=== PATIENT | female | born 1975 | race Caucasian/White ===

== ENCOUNTER 2021-08-30 07:45 | Emergency (ER) | payer OTHER, SELFPAY ==
[2021-08-30 07:51] VITALS: BP 138/84; PULSE 101; RESP 20; TEMP 37.2; O2SAT 95; BMI 38.4
--- NOTE | 2021-08-30 08:27 | ED_ITS ---
HPI - URI/Sore Throat General Chief Complaint: Upper Respiratory Symptoms Stated Complaint: deiff breathing Time Seen by Provider: 08/30/21 08:14 Source: patient Mode of arrival: ambulatory Limitations: no limitations History of Present Illness HPI Narrative: 46-year-old female presents for dry cough, low-grade fevers, body aches, and headaches for the last week. She has had a dry cough which is now getting worse. She feels mildly short of breath. Last night she woke up twice coughing. She has a history of bronchitis and is a former smoker. 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 Patient endorses only a slight headache now. States she did use elderberry syrup, which only helped for 3 hours. MD elicited complaint: cough Onset (ago): week(s) (1) Consistency: intermittent Severity: moderate Able to tolerate fluids by mouth: Yes Context: sick contacts Associated symptoms: chills, myalgias, headache and cough Related Data Previous Rx's Medication Instructions Recorded azithromycin 500 mg tablet 500 mg PO DAILY 5 Days #5 tab 02/27/21 prednisone 20 mg tablet 20 mg PO .COMPLEX #18 tab 02/27/21 albuterol sulfate 90 mcg/actuation 2 puff INHALATION Q6H PRN #8.5 g 08/30/21 aerosol inhaler azithromycin 250 mg tablet See Rx Instructions .ROUTE 08/30/21 .COMPLEX 5 Days #6 tab benzonatate 200 mg capsule 200 mg PO TID 5 Days #15 cap 08/30/21 prednisone 20 mg tablet 40 mg PO DAILY 5 Days #10 tab 08/30/21 Allergies Allergy/AdvReac Type Severity Reaction Status Date / Time latex [LATEX] Allergy Unknown HIVES Unverified 08/30/21 07:51 Review of Systems Constitutional: Constitutional: Reports body ache(s), Reports chills, Reports fatigue, Reports fever(s), Reports headache(s), Reports malaise and Denies weakness Eyes: Eyes: Denies blurry vision and Denies diplopia ENT: Denies vertigo, Denies dizziness, Denies otalgia, Reports headache(s), Denies mouth pain, Denies post nasal drip, Denies sinus pain, Denies sinus pressure, Denies sore throat and Denies throat swelling Cardiovascular: Cardiovascular: Denies chest pain, Denies syncope, Denies leg edema, Denies lightheadedness, Denies Loss of Consciousness, Denies palpitations and Denies dyspnea Respiratory: Respiratory: Denies chest congestion, Reports cough, Denies pain with cough and Denies dyspnea Gastrointestinal: Gastrointestinal: Denies abdominal pain, Denies hematochezia, Denies constipation, Denies diarrhea and Denies vomiting Musculoskeletal: Musculoskeletal: Reports myalgias Neurologic: Denies confusion, Denies vertigo, Denies dizziness, Denies syncope, Reports headache(s) and Denies weakness Psychiatric: Psychiatric: Denies anxiety, Denies confusion and Denies depression Endocrine: Endocrine: Reports fatigue and Denies palpitations Allergic/Immunologic: Allergic/Immunologic: Denies throat swelling PMFSH Social History Social History Advance Directives: No Advance Directives Information Provided: Yes Patient : No Physical Exam Vital Signs: Vital Signs: Last Vital Signs Temp 99.0 F 08/30/21 07:51 Pulse 101 H 08/30/21 07:51 Resp 20 08/30/21 07:51 BP 138/84 08/30/21 07:51 Pulse Ox 95 08/30/21 07:51 BMI result Body Mass Index 38.4 Const: General: alert and ill appearing acutely; No confusion Nutritional Appearance: well nourished Orientation/consciousness: patient oriented x3 and No confusion Limitations: no limitations HENMT: Head: Yes normal to inspection, Yes normocephalic and Yes atraumatic Ears: hearing grossly normal bilaterally, external ears normal, TM's normal bilaterally and EAC's normal General nose exam: Normal external nose present Face and sinus: Yes normal facial exam and Yes sinuses nontender Mouth: Normal oral and palatal mucosa present Throat: Yes posterior oropharynx normal Eyes: Conjunctivae: conjunctivae normal Pupils: Equal, round and reactive pupils present EOM: EOMs intact bilaterally Neck: Neck: Yes full ROM, Yes no lymphadenopathy and Yes supple Resp: Effort & Inspection: normal respiratory effort and able to speak in complete sentences Auscultation: clear to auscultation bilaterally, no crackles, no rales, no rhonchi and no wheezes Cardio: Rate: regular rate Rhythm: regular rhythm Heart sounds: S1 normal heart sound present and S2 normal heart sound present GI: Inspection: Yes normal to inspection Palpation (GI): Soft to palpation, nontender, no guarding and not rigid Percussion: Yes normal to percussion Auscultation: normal bowel sounds Skin: General skin exam: no rashes or lesions noted Neuro: General: patient oriented x3 and No confusion Cranial nerves: Yes Equal, round and reactive pupils present Extrem: General: Yes normal to inspection and Yes full ROM Psych: Appearance: grossly normal Affect: normal affect Attitude: cooperative Thought process: Normal thought process present Course Course Course Narrative: 46-year-old female presents for 1 week of dry cough, body aches, mild headache, and low-grade fevers at home. COVID, flu, RSV test was negative today. Patient has a history of bronchitis. Lungs clear and only very mildly diminished. Plan is for short course of prednisone, albuterol inhaler, azithromycin, Tessalon Perles. Return if chest pain or shortness of breath. Follow-up with PCP. MDM - URI/Sore Throat Lab Data Labs: Lab Results 08/30/21 Range/Units 07:57 Influenza Type A (PCR) NEGATIVE (Negative) Influenza Type B (PCR) NEGATIVE (Negative) RSV RNA Qual (PCR) NEGATIVE (Negative) SARS-CoV-2 RNA (RT-PCR) NEGATIVE (Negative) Discharge Plan Discharge Clinical Impression: Bronchitis Patient Disposition: Home, Self-Care Instructions: Acute Bronchitis (ED), Bronchospasm (ED) Additional Instructions: Please take your prednisone in the morning. Please use your albuterol inhaler, 2 puffs every 4 hours while your awake for the next 3 days. Please start your is of her mycin antibiotic today. Please take the benzonatate for 2 days, it may help with her cough. If it does not help, you may discontinue benzonatate. Please return to the emergency room for chest pain, shortness of breath, worsening fevers, or any other new or concerning symptoms. Prescriptions: New azithromycin 250 mg tablet See Rx Instructions .ROUTE .COMPLEX 5 Days Qty: 6 RF: 0 prednisone 20 mg tablet 40 mg PO DAILY 5 Days Qty: 10 RF: 0 benzonatate 200 mg capsule 200 mg PO TID 5 Days Qty: 15 RF: 0 albuterol sulfate 90 mcg/actuation HFA aerosol inhaler 2 puff inhalation Q6H PRN (Reason: shortness of breath or wheezing) Qty: 8.5 RF: 0 No Action prednisone 20 mg tablet 20 mg PO .COMPLEX Qty: 18 RF: 0 azithromycin 500 mg tablet 500 mg PO DAILY 5 Days Qty: 5 RF: 0 Interventions: ED Discharge Assessment Last Done: 08/30/21 09:27 Discharge Date/Time: 08/30/21 09:27
[2021-08-30 08:42] LABS: Influenza A PCR NEGATIVE (Negative); Influenza B PCR NEGATIVE (Negative); Resp Syncy Virus RNA Qual PCR NEGATIVE (Negative); SARS COV2 PCR INHOUSE NEGATIVE (Negative)
[2021-08-30] MEDS: Albuterol Sulfate 90 MCG 8 GM INHALER 2 PUFF INHALE (09:20)
== END 2021-08-30 09:27 | disposition home or self-care (01) ==
PROVIDERS: Emergency Provider Emergency Medicine; PCP Internal Medicine
DX: J40 Bronchitis, not specified as acute or chronic (principal); Z20.822 Contact with and (suspected) exposure to COVID-19; R50.9 Fever, unspecified
CPT/HCPCS: 0241U; 36415; 94640; 99283; 99284

== ENCOUNTER 2022-01-15 12:28 | Emergency (ER) | payer OTHER, SELFPAY ==
--- NOTE | ~2022-01-15 | US_ITS ---
EXAMINATION: US ABDOMEN COMPLETE CLINICAL INFORMATION: Right upper quadrant pain. COMPARISON: None TECHNIQUE: Real-time imaging of the abdominal viscera. FINDINGS: PANCREAS: Normal. ABDOMINAL AORTA: The proximal, mid, and distal segments are normal in caliber. INFERIOR VENA CAVA: Visualized portions are normal. LIVER: The liver is normal in size. The liver contour is normal. There is diffuse increased liver parenchymal echogenicity, consistent with hepatic steatosis. No focal hepatic lesion. There is no intrahepatic biliary duct dilatation seen. GALLBLADDER: The gallbladder is physiologically distended and demonstrates some areas of comet-tail artifact significant for adenomyomatosis. No stones, sludge, polyps, wall thickening or pericholecystic fluid is seen. According to the ichthyology teacher, the patient was tender over the gallbladder when palpated. COMMON BILE DUCT: Normal in caliber measuring 0.5 cm in diameter. RIGHT KIDNEY: Normal. No hydronephrosis. No renal calculi or focal parenchymal lesions. The kidney measures 13.1 cm in maximum dimension. LEFT KIDNEY: Normal. No hydronephrosis. No renal calculi or focal parenchymal lesions. The kidney measures 12.7 cm in maximum dimension. SPLEEN: Normal. The spleen measures 10.7 cm in maximum dimension. FREE FLUID: None. US/US abdomen complete IMPRESSION: 1. Hepatic steatosis. 2. Adenomyomatosis of the gallbladder without calculi.
--- NOTE | ~2022-01-15 | XR_ITS ---
EXAMINATION: XR CHEST CLINICAL INFORMATION: Right chest wall/right upper quadrant abdominal pain/jaw pain COMPARISON: Chest radiograph 03/14/2011, report only TECHNIQUE: 2 views of the chest were obtained. FINDINGS: No significant abnormality is noted involving the heart, lungs, mediastinum, bony thorax or soft tissues. XR/XR chest 2V IMPRESSION: Unremarkable examination.
[2022-01-15 12:40] VITALS: BP 133/89; PULSE 82; RESP 20; TEMP 36.1; O2SAT 97; BMI 38.4
--- NOTE | 2022-01-15 13:49 | ECG_ITS ---
Test Reason : JAW PAIN Blood Pressure : / mmHG Vent. Rate : 060 BPM Atrial Rate : 060 BPM P-R Int : 164 ms QRS Dur : 086 ms QT Int : 424 ms P-R-T Axes : 016 031 021 degrees QTc Int : 424 ms Normal sinus rhythm Normal ECG When compared with ECG of 04-JUL-2018 20:35, Left posterior fascicular block is no longer Present Criteria for Inferior infarct are no longer Present Nonspecific T wave abnormality, improved in Inferior leads Referred By: Leslye Novak Electronically Signed By:VIJAYA CRENSHAW MD
[2022-01-15 14:12] LABS: MANUAL DIFF FLAG NO
[2022-01-15 14:14] LABS: Basophils Percent Auto 0.3 % (0-2); Eosinophils Absolute Auto 0.1 X10*3/uL (0.0-0.4); Eosinophils Percent Auto 1.8 % (0-4); Hemoglobin 13.4 g/dl (12.0-16.0); Imm Gran Abs Auto 0.01 X10*3/uL (0.00-0.03); Imm Gran Pct Auto 0.2 % (0.0-0.4); Lymphocytes Absolute Auto 1.7 X10*3/uL (1.2-4.9); Lymphocytes Percent Auto 27.4 % (20-40); Mean Corpuscular HGB Conc 32.7 g/dl (31.0-35.0); Mean Corpuscular Hemoglobin 28.5 pg (27.0-33.0); Mean Platelet Volume 10.1 fL (9.4-12.3); Monocytes Absolute Auto 0.4 X10*3/uL (0.1-1.2); Monocytes Percent Auto 6.1 % (2-11); Neutrophils Absolute Auto 3.9 x10*3/uL (2.0-8.3); Neutrophils Percent Auto 64.2 % (45-73); Platelet Count 217 X10*3/uL (160-400); Red Blood Count 4.71 X10*6/uL (4.20-5.50); Red Cell Distribution Width 12.9 % (11.0-16.0); White Blood Count 6.1 X10*3/uL (4.8-10.8)
--- NOTE | 2022-01-15 14:15 | ED_ITS ---
HPI - General Adult General Chief complaint: Back Pain/Injury Stated complaint: back pain/pain under jaw Time Seen by Provider: 01/15/22 13:48 Source: patient Mode of arrival: ambulatory Limitations: no limitations History of Present Illness HPI narrative: 46-year-old female who denies any significant past medical history presenting to the ED with complaints of mid back pain on the right side that is now radiating to her right upper quadrant/right anterior chest wall/rib cage area for the past 2-3 days worse today. She also reports right-sided jaw pain. She reports that it is worse when she bends over. She denies ever having this pain in the past. She reports that she was seen by urgent care and diagnosed with back strain and given muscle relaxers without any symptomatic relief. She denies any fevers, chills, dizziness, headaches, neck pain/stiffness, trouble swallowing or breathing, changes in vision, nausea/vomiting, paresthesias, palpitations, dyspnea on exertion, orthopnea, dysuria, hematuria, urinary bowel incontinence or retention, abnormal vaginal discharge, urinary frequency/urgency, recent falls or trauma, history of IV drug use, history of cancer, recent travel or sick contacts or any other symptoms complaints or concerns at this time. Related Data Previous Rx's Medication Instructions Recorded cyclobenzaprine 10 mg tablet 10 mg PO BEDTIME #14 tab 01/02/22 meloxicam 15 mg tablet 15 mg PO DAILY #14 tab 01/02/22 acetaminophen 500 mg tablet 1,000 mg PO QID PRN #14 tab 01/15/22 (Tylenol Extra Strength) ibuprofen 800 mg tablet 800 mg PO Q8H PRN #14 tab 01/15/22 oxycodone 5 mg tablet 5 mg PO Q6H PRN #7 tab 01/15/22 Allergies Allergy/AdvReac Type Severity Reaction Status Date / Time latex [LATEX] Allergy Unknown HIVES Verified 01/15/22 12:47 Review of Systems Review of Systems: Constitutional : No trauma, No Weight loss, No Fever, No Chills, ENT/Mouth : No Hearing loss, No Ear Pain, No Nasal Congestion, No Sinus Pain, No Hoarseness, No sore throat, No Rhinorrhea, No Swallowing Difficulty Cardiovascular : No Chest Pain, No SOB Respiratory : No Cough, No Dyspnea Gastrointestinal : + abdominal pain, No Nausea, No Vomiting, No Diarrhea, No abdominal Pain, No Hematochezia, No Melena Genitourinary : No Dysuria, No Urinary Frequency, No Hematuria, No Urinary or Bowel Incontinence/retention Musculoskeletal : + Back pain, + right sided jaw pain, + Right sided neck pain, No joint stiffness, No joint swelling Skin : No Skin Lesions, No rash or signs of infection Neuro : No Weakness, No radiation, No Numbness, No Paresthesias, No headache, no loss of bowel or bladder incontinence, no saddle anesthesia, Focal weakness, No radiation Denies history of IV drug usage. Yes all other systems are reviewed and are negative [facility] Past Medical History Attestation statement: The following information was validated with the patient. Surgical History H/O knee surgery Hx of tonsillectomy Social History Social History Patient Tobacco Use Status: Former Tobacco user Advance Directives: No Advance Directives Information Provided: No Patient : No Physical Exam ED Vital Signs: Vital Signs - 24 hr 01/15/22 12:40 Temperature 97 F Pulse Rate 82 Respiratory Rate 20 Blood Pressure 133/89 Pulse Oximetry 97 BMI result Body Mass Index 38.4 vital signs have been reviewed as normal and appeared to be correct. Blood pressure normal. Heart rate normal. Respiration rate normal. Temperature normal. Oxygen saturation normal. Appearance: Alert. Oriented X3. No acute distress. Head: Normal external exam. Normocephalic. Atraumatic. Eyes: PERRLA. EOMI. Conjunctiva and sclera normal. Eyelids normal. ENT: EAC normal. TM's Normal. Pharynx normal. Uvula midline. Moist mucous membranes. No lesions/ulcerations or masses noted on the tongue. Normal voice. No trismus noted. No drooling noted. No muffled voice noted. Neck: Normal inspection. Neck supple. FROM. No adenopathy. Thyroid Normal. No tracheal deviation noted. No crepitus is noted. No meningeal signs. No neck mass noted. No signs of trauma noted. CVS: Normal heart rate and rhythm. Heart sound normal. Pulses normal throughout. No murmurs/rales/gallops. Respiratory: No respiratory distress. Painless inspiration. Breath sounds normal. No wheezes/rales/rhonchi noted. Chest nontender. No crepitus is noted. No signs of trauma noted. No accessory muscle usage noted or decreased air movement noted. No signs of trauma. Abdomen: Soft and tenderness palpation to the right upper quadrant with guard ing. Bowel sounds normal in all 4 quadrants. No distention noted. No organomegaly noted. No visible injury noted. Negative Villavicencio sign. Negative psoas sign. Negative obturator's sign. Back: No CVA tenderness. Full range of motion noted. Patient with tenderness palpation to the right upper para lumbar musculature. No signs of trauma. Patient neuro intact bilaterally and distally on all 4 extremities. Patient's reflexes intact bilaterally and distally on all 4 extremities. No rashes/ lesion/induration/fluctuance or signs of infection noted. Skin: Skin warm and dry. Normal skin color. Normal skin turgor. No rashes/lesions/lacerations noted. Extremities: No lower extremity edema. No calf tenderness is noted. Extremities exhibit normal range of motion and nontender. Neuro: Oriented X 3. No motor deficit. No sensory deficit. Reflexes normal. Normal steady gait. No focal neuro deficits noted. CN's II-XII intact bilaterally? Vascular: + radial pulses/+ 2 distal pedal pulses/+2 dorsalis pedis b/l. Normal cap refill. No cyanosis noted to upper extremity nails and lower extremity toes nails. Course Course Course Narrative: 13:50pm - Pt c likely muscular pain, but could be herniated disc. Neuro exam shows no deficits. Not c/w AAA/epidural abscess/dissection.No high risk Hx (Incont, fever, immunosupp, recent surgery/LP, coag, signif trauma, wt loss, puls mass, hx/o Ca, TB, or IVDU) to warrant MRI. Not c/w Pyelo/UTI/kidney stone/spinal fx. Not cauda equina syndrome. Although due to patient reporting abdominal pain and jaw pain will obtain labs including troponin, EKG, chest x-ray and abdominal ultrasound provide symptomatic treatment and re-evaluate. Reevaluation(s) Reevaluation #1: - labs return and anion gap 11. Troponin 4.9 otherwise all other labs are within normal limits - will repeat a troponin 3 hours after. Awaiting chest x-ray and ultrasound will re-evaluate. Time: 15:18 Reevaluation #2: - repeat troponin 5.6 which is negative delta. - chest x-ray within normal limits. - abdominal ultrasound revealed hepatic cirrhosis and Adenomyomatosis of the gallbladder without calculi. - therefore I consulted with the general surgeon who is on-call and she came and evaluated the patient herself and she reports that the patient is very tender in the right upper quadrant although she does not believe this is acute cholecystitis at this time due to patient does not have an elevated white blood cell count her lipase is normal and she does not have any sludge or stones noted on ultrasound at this time or any fluid. Therefore she reported that patient most likely has biliary colic. Although she instructed me to send the patient home with Motrin and Tylenol and a few oxycodone and for the patient to follow as an outpatient within 1 week for re-evaluation and possible outpa tient surgery for her gallbladder although she reported that she is here over the next 3 days and if patient comes back due to worsening pain then she will take her to the OR for possibly gallbladder removal although at this time and this is not acute cholecystitis we are calling it biliary colic. Patient understands agrees with this plan. Time: 17:22 Medical Decision Making Medical Records Medical records reviewed: Yes I reviewed the patient's medical records. Lab Data Lab results reviewed: Yes I reviewed the patient's lab results. Result diagrams: 01/15/22 14:04 01/15/22 14:04 Labs: Lab Results 01/15/22 01/15/22 01/15/22 Range/Units 14:04 14:04 14:04 WBC 6.1 (4.8-10.8) X10*3/uL RBC 4.71 (4.20-5.50) X10*6/uL Hgb 13.4 (12.0-16.0) g/dl Hct 41.0 (37.0-47.0) % MCV 87.0 (80.0-98.0) fL MCH 28.5 (27.0-33.0) pg MCHC 32.7 (31.0-35.0) g/dl RDW 12.9 (11.0-16.0) % Plt Count 217 (160-400) X10*3/uL MPV 10.1 (9.4-12.3) fL Immature Gran % (Auto) 0.2 (0.0-0.4) % Neut % (Auto) 64.2 (45-73) % Lymph % (Auto) 27.4 (20-40) % [place] % (Auto) 6.1 (2-11) % Eos % (Auto) 1.8 (0-4) % Baso % (Auto) 0.3 (0-2) % Lymph # (Auto) 1.7 (1.2-4.9) X10*3/uL [place] # (Auto) 0.4 (0.1-1.2) X10*3/uL Eos # (Auto) 0.1 (0.0-0.4) X10*3/uL Baso # (Auto) 0.0 (0.0-0.2) X10*3/uL Abs Immat Gran (auto) 0.01 (0.00-0.03) X10*3/uL Absolute Neuts (auto) 3.9 (2.0-8.3) x10*3/uL Absolute Nucleated RBC 0.000 (0.0-0.012) X10*3/uL Nucleated RBC % (auto) 0.0 (0.0-0.2) /100WBC PT 11.2 (9.9-13.0) SEC INR 1.0 (0.9-1.1) Sodium 138 (135-145) mmol/L Potassium 4.2 (3.3-5.1) mmol/L Chloride 103 (96-108) mmol/L Carbon Dioxide 28 (22-29) mmol/L Anion Gap 11 L (12-20) BUN 15 (9-16) mg/dL Creatinine 0.91 (0.5-1.4) mg/dL Estim Creat Clear Calc 105.9 Estimated GFR > 60 Random Glucose 85 (60-115) mg/dL Calcium 9.6 (8.4-10.2) mg/dL Magnesium 1.9 (1.6-2.6) mg/dL Total Bilirubin 0.8 (0.0-1.0) mg/dL AST 19 (5-31) U/L ALT 25 (0-31) U/L Alkaline Phosphatase 69 (39-117) U/L Troponin I High Sens (<3.5-17.0) ng/L Total Protein 7.3 (6.5-8.0) g/dL Albumin 4.3 (3.5-5.0) g/dL Lipase 74 (8-78) U/L Urine Color Urine Appearance Urine pH (5.0-8.0) Ur Specific [place] (1.005-1.025) Urine Protein (NEG-TRACE) MG/DL Urine Glucose (UA) (NEG) MG/DL Urine Ketones (NEG) MG/DL Urine Blood (NEG) Urine Nitrite (NEG) Ur Leukocyte Esterase (NEG) Urine RBC (0) /HPF Urine WBC (0-4) /HPF Ur Squamous Epith Cells /LPF Urine Bacteria /LPF 01/15/22 01/15/22 01/15/22 Range/Units 14:04 16:41 16:41 WBC (4.8-10.8) X10*3/uL RBC (4.20-5.50) X10*6/uL Hgb (12.0-16.0) g/dl Hct (37.0-47.0) % MCV (80.0-98.0) fL MCH (27.0-33.0) pg MCHC (31.0-35.0) g/dl RDW (11.0-16.0) % Plt Count (160-400) X10*3/uL MPV (9.4-12.3) fL Immature Gran % (Auto) (0.0-0.4) % Neut % (Auto) (45-73) % Lymph % (Auto) (20-40) % [place] % (Auto) (2-11) % Eos % (Auto) (0-4) % Baso % (Auto) (0-2) % Lymph # (Auto) (1.2-4.9) X10*3/uL [place] # (Auto) (0.1-1.2) X10*3/uL Eos # (Auto) (0.0-0.4) X10*3/uL Baso # (Auto) (0.0-0.2) X10*3/uL Abs Immat Gran (auto) (0.00-0.03) X10*3/uL Absolute Neuts (auto) (2.0-8.3) x10*3/uL Absolute Nucleated RBC (0.0-0.012) X10*3/uL Nucleated RBC % (auto) (0.0-0.2) /100WBC PT (9.9-13.0) SEC INR (0.9-1.1) Sodium (135-145) mmol/L Potassium (3.3-5.1) mmol/L Chloride (96-108) mmol/L Carbon Dioxide (22-29) mmol/L Anion Gap (12-20) BUN (9-16) mg/dL Creatinine (0.5-1.4) mg/dL Estim Creat Clear Calc Estimated GFR Random Glucose (60-115) mg/dL Calcium (8.4-10.2) mg/dL Magnesium (1.6-2.6) mg/dL Total Bilirubin (0.0-1.0) mg/dL AST (5-31) U/L ALT (0-31) U/L Alkaline Phosphatase (39-117) U/L Troponin I High Sens 4.9 5.6 (<3.5-17.0) ng/L Total Protein (6.5-8.0) g/dL Albumin (3.5-5.0) g/dL Lipase (8-78) U/L Urine Color YELLOW Urine Appearance CLEAR Urine pH 6.0 (5.0-8.0) Ur Specific [place] 1.015 (1.005-1.025) Urine Protein NEG (NEG-TRACE) MG/DL Urine Glucose (UA) NEG (NEG) MG/DL Urine Ketones NEG (NEG) MG/DL Urine Blood TRACE (NEG) Urine Nitrite NEG (NEG) Ur Leukocyte Esterase NEG (NEG) Urine RBC 0-2 (0) /HPF Urine WBC 0 (0-4) /HPF Ur Squamous Epith Cells 1+ /LPF Urine Bacteria 1+ /LPF Imaging Data Chest x-ray: Attestation: I personally reviewed and interpreted this imaging study as follows: Radiologist's impression: FINDINGS: No significant abnormality is noted involving the heart, lungs, mediastinum, bony thorax or soft tissues. XR/XR chest 2V IMPRESSION: Unremarkable examination. Abdominal ultrasound: Attestation: I personally reviewed and interpreted this imaging study as follows: Radiologist's impression: FINDINGS: PANCREAS: Normal. ABDOMINAL AORTA: The proximal, mid, and distal segments are normal in caliber. INFERIOR VENA CAVA: Visualized portions are normal. LIVER: The liver is normal in size. The liver contour is normal. There is diffuse increased liver parenchymal echogenicity, consistent with hepatic steatosis.? No focal hepatic lesion. There is no intrahepatic biliary duct dilatation seen. GALLBLADDER: The gallbladder is physiologically distended and demonstrates some areas of comet-tail artifact significant for adenomyomatosis. No stones, sludge, polyps, wall thickening or pericholecystic fluid is seen. According to the lens and frames prescription clerk, the patient was tender over the gallbladder when palpated. COMMON BILE DUCT: Normal in caliber measuring 0.5 cm in diameter. RIGHT KIDNEY: Normal. No hydronephrosis. No renal calculi or focal parenchymal lesions. The kidney measures 13.1 cm in maximum dimension. LEFT KIDNEY: Normal. No hydronephrosis. No renal calculi or focal parenchymal lesions. The kidney measures 12.7 cm in maximum dimension. SPLEEN: Normal. The spleen measures 10.7 cm in maximum dimension. FREE FLUID: None. US/US abdomen complete IMPRESSION: 1. Hepatic steatosis. ? 2. Adenomyomatosis of the gallbladder without calculi. ECG Data Attestation: I personally reviewed and interpreted this ECG as follows: Interpretation: Normal sinus rhythm with ventricular rate of 60 with a normal [place] interval normal QRS duration normal QT/QTC interval. No acute ischemic change are noted. Similar compared to prior EKG 07/04/2018. Critical Care Time Critical Care Time Critical Care Time: Yes Total Critical Care Time: 60 Attestation: I personally attest to this time spent taking care of the patient Discharge Plan Discharge Clinical Impression: Biliary colic Patient Disposition: Home, Self-Care Instructions: Biliary Colic (ED) Prescriptions: New ibuprofen 800 mg tablet 800 mg PO Q8H PRN (Reason: pain) Qty: 14 0RF acetaminophen [Tylenol Extra Strength] 500 mg tablet 1,000 mg PO QID PRN (Reason: fever or pain) Qty: 14 0RF oxycodone 5 mg tablet 5 mg PO Q6H PRN (Reason: pain) Qty: 7 0RF No Action meloxicam 15 mg tablet 15 mg PO DAILY Qty: 14 0RF cyclobenzaprine 10 mg tablet 10 mg PO BEDTIME Qty: 14 0RF Referrals: Espinas,Radha C, MD [Primary Care Provider] - Valentin Palafox MD [Physician] - (Call tomorrow to make a follow-up appointment within 1 week) Stand Alone Forms: Work/School Release Print Language: Turkmen
[2022-01-15 14:31] LABS: Prothrombin Time 11.2 SEC (9.9-13.0)
[2022-01-15 14:33] LABS: Alanine Aminotransferase 25 U/L (0-31); Albumin Level 4.3 g/dL (3.5-5.0); Alkaline Phosphatase 69 U/L (39-117); Anion Gap 11 (12-20); Aspartate Amino Transferase 19 U/L (5-31); Bilirubin Total 0.8 mg/dL (0.0-1.0); Blood Urea Nitrogen 15 mg/dL (9-16); Calcium 9.6 mg/dL (8.4-10.2); Carbon Dioxide 28 mmol/L (22-29); Chloride 103 mmol/L (96-108); Creatinine Clr Calc Pharmacy 105.9; Estimated Glomerular Filt Rate > 60; Glucose Random 85 mg/dL (60-115); Lipase 74 U/L (8-78); Magnesium 1.9 mg/dL (1.6-2.6); Potassium 4.2 mmol/L (3.3-5.1); Sodium 138 mmol/L (135-145); Total Protein 7.3 g/dL (6.5-8.0); Troponin-I High Sensitivity 4.9 ng/L (<3.5-17.0)
[2022-01-15] MEDS: Cyclobenzaprine HCl 10 MG TABLET PO (15:22)
[2022-01-15] MEDS: NaPROXEN 500 MG TABLET PO (15:23)
[2022-01-15 16:53] LABS: Appearance Urine CLEAR; Color Urine YELLOW; Glucose Urine UA NEG (NEG); Leukocyte Esterase Urine NEG (NEG); Nitrite Urine NEG (NEG); Specific Gravity - Urine 1.015 (1.005-1.025); UACC Culture Trigger NO; Urine Blood TRACE (NEG); Urine Ketones NEG (NEG); Urine Protein NEG (NEG-TRACE)
[2022-01-15 17:01] LABS: Bacteria Urine 1+ /LPF; RBC Urine 0-2 /HPF (0); Squamous Epithelial Cell Urine 1+ /LPF; WBC Urine 0 /HPF (0-4)
[2022-01-15 17:10] LABS: Troponin-I High Sensitivity 5.6 ng/L (<3.5-17.0)
--- NOTE | 2022-01-15 17:20 | PM.CNGS ---
History of Present Illness Consult details Consult date: 01/15/22 Requesting physician: Leslye Novak Narrative: The pt is a 46 year old female who has been having right back/flank pain for the last few weeks but worsened last 48 hrs after eating pork belly and some other things. went to Urgent care who thought maybe more muskuloskeletal and gave her muscle relaxant which did not help. she comes in now to the ER. w.u here normal labs but tender over the GB. U/s done shows chavez sign, no stones. she was nauseated at times. denies ever having pain like this before not sure of family hx of gallbladder disease denies heartburn reflux no bowel issues or urinary issues PMFSH Surgical History Surgical History H/O knee surgery Hx of tonsillectomy Social History Social History Patient Tobacco Use Status: Former Tobacco user Advance Directives: No Advance Directives Information Provided: No Patient : No Meds Allergies Allergy/AdvReac Type Severity Reaction Status Date / Time latex [LATEX] Allergy Unknown HIVES Verified 01/15/22 12:47 Physical Exam Vital Signs: Vital Signs: Last Vital Signs Temp 97 F 01/15/22 12:40 Pulse 82 01/15/22 12:40 Resp 20 01/15/22 12:40 BP 133/89 01/15/22 12:40 Pulse Ox 97 01/15/22 12:40 BMI result Body Mass Index 38.4 Const: General: cooperative, healthy appearing, comfortable and no acute distress Orientation/consciousness: oriented to person, oriented to place and oriented to time Eyes: General: appearance normal, both eyes and all related structures Neck: Neck: Yes normal visual inspection Resp: Effort & Inspection: normal respiratory effort and able to speak in complete sentences Auscultation: clear to auscultation bilaterally Cardio: Rate: regular rate Rhythm: regular rhythm GI: Other: soft nondistended, tender ruq area no guarding or rebound or peritoneal signs : General: No CVA tenderness Back/Spine/Pelvis: Back: No CVA tenderness Skin: General skin exam: no rashes or lesions noted and no jaundice Neuro: General: oriented to person, oriented to place and oriented to time Extrem: General: Yes normal to inspection Psych: Appearance: grossly normal and well kempt Mental Status: mental status grossly normal Affect: normal affect Attitude: cooperative Thought content: Normal thought content present Results Labs Result diagrams: 01/15/22 14:04 01/15/22 14:04 Labs: Abnormal lab results 01/15/22 Range/Units 14:04 Anion Gap 11 L (12-20) Short CBC 01/15/22 Range/Units 14:04 WBC 6.1 (4.8-10.8) X10*3/uL Hgb 13.4 (12.0-16.0) g/dl Hct 41.0 (37.0-47.0) % Plt Count 217 (160-400) X10*3/uL BMP 01/15/22 14:04 Sodium 138 Potassium 4.2 Chloride 103 Carbon Dioxide 28 BUN 15 Creatinine 0.91 Calcium 9.6 Liver Function 01/15/22 Range/Units 14:04 Total Bilirubin 0.8 (0.0-1.0) mg/dL AST 19 (5-31) U/L ALT 25 (0-31) U/L Alkaline Phosphatase 69 (39-117) U/L Albumin 4.3 (3.5-5.0) g/dL Urine 01/15/22 Range/Units 16:41 Urine Color YELLOW Urine Appearance CLEAR Urine pH 6.0 (5.0-8.0) Ur Specific [place] 1.015 (1.005-1.025) Urine Protein NEG (NEG-TRACE) MG/DL Urine Glucose (UA) NEG (NEG) MG/DL All other labs normal. Imaging Abdominal ultrasound report/results: report reviewed Assessment and Plan (1) Biliary colic symptom: Status: Acute Plan 46 year old female with probable biliary colic, no stones but hx and exam and u/s consistent with this. plan - stay on low fat diet, antiinflammatory meds and fu as outpt in the surgical office and consider planning for elective lap lianna. if sx worsen pt to return to ER for more urgent surgery. She agrees and understands this plan Procedures Date of Service Date of Service: 01/15/22
== END 2022-01-15 18:05 | disposition home or self-care (01) ==
PROVIDERS: Physician Assistant Medical; Emergency Provider Student in an Organized Health Care Education/Training Program; PCP Internal Medicine
DX: K80.50 Calculus of bile duct without cholangitis or cholecystitis without obstruction (principal); M54.50 Low back pain, unspecified; R10.84 Generalized abdominal pain; Z79.899 Other long term (current) drug therapy; Z87.891 Personal history of nicotine dependence
CPT/HCPCS: 36415; 71046; 76700; 80053; 81001; 83690; 83735; 84484; 85025; 85610; 93005; 99284; 99291

== ENCOUNTER → 2022-01-29 09:47 | Outpatient (BNVA) | payer OTHER, MEDICAID, SELFPAY | PROVIDERS: PCP Internal Medicine; Referring Provider Internal Medicine; Visit Provider Surgery | DX: D13.5 Benign neoplasm of extrahepatic bile ducts (principal) ==

== ENCOUNTER 2022-03-16 12:42 | Outpatient (REF) | payer OTHER, MEDICAID, SELFPAY ==
--- NOTE | ~2022-03-16 | CT_ITS ---
EXAMINATION: CT ABDOMEN AND PELVIS WITHOUT CONTRAST CLINICAL INFORMATION: Benign neoplasm of the extrahepatic bile ducts COMPARISON: Previous abdominal ultrasound December 2020 TECHNIQUE: Multidetector volumetric imaging was performed from the superior aspect of the liver through the pubic symphysis. Sagittal and coronal reformatted images were obtained on the technologist's workstation. This CT examination was performed using dose optimization techniques as appropriate, variously including the following: *Automated exposure control *Adjustment of mA and/or kV according to patient size (this includes techniques or standardized protocols for targeted exams where dose is matched to indication/reason for exam; i.e. extremities or head) *Use of iterative reconstruction technique DLP: 1163 mGy-cm FINDINGS: LUNG BASES: The visualized lung bases are unremarkable. LIVER, GALLBLADDER, AND BILIARY TREE: The liver is normal in size and shape. Liver slightly low in attenuation suggestive of mild fatty infiltration.. No focal hepatic lesion or biliary ductal dilatation is present. The gallbladder is unremarkable with no evidence of radiopaque gallstones, gallbladder wall thickening, or obvious pericholecystic inflammatory changes. PANCREAS: Unremarkable. SPLEEN: Unremarkable. ADRENAL GLANDS: Unremarkable. KIDNEYS AND URETERS: The kidneys are normal in size, shape, and attenuation. No hydronephrosis, hydroureter, or calculi seen. No perinephric stranding. BLADDER: Unremarkable. GASTROINTESTINAL TRACT: The small and large bowel are unremarkable. The appendix is unremarkable. ABDOMINAL WALL: There is a small umbilical hernia containing fat. LYMPH NODES: Normal. VASCULAR: Unremarkable. PELVIC VISCERA: Unremarkable. OSSEOUS STRUCTURES: Mild degenerative changes of the spine. CT/CT abdomen pelvis wo con IMPRESSION: Mild fatty infiltration of the liver otherwise unremarkable exam. Fleischner guidelines were followed.
== END 2022-03-16 12:43 | disposition home or self-care (01) ==
LOC: HO.CT 12:42
PROVIDERS: Visit Provider Surgery
DX: D13.5 Benign neoplasm of extrahepatic bile ducts (principal); K80.50 Calculus of bile duct without cholangitis or cholecystitis without obstruction
CPT/HCPCS: 74176

== ENCOUNTER 2022-03-19 10:07 | Outpatient (REF) | payer OTHER, MEDICAID, SELFPAY ==
[2022-03-19 11:25] LABS: Appearance Urine CLEAR; Color Urine YELLOW; Glucose Urine UA NEG (NEG); Leukocyte Esterase Urine NEG (NEG); Nitrite Urine NEG (NEG); PH 5.5 (5.0-8.0); Urine Blood TRACE (NEG); Urine Ketones NEG (NEG); Urine Protein NEG (NEG-TRACE)
[2022-03-19 11:41] LABS: Amorphous Sediment Urine 2+ /LPF; Bacteria Urine TRACE /LPF; RBC Urine 0-2 /HPF (0); Squamous Epithelial Cell Urine 2+ /LPF; WBC Urine 0 /HPF (0-4)
== END 2022-03-19 10:08 | disposition home or self-care (01) ==
LOC: HO.LAB 10:07
PROVIDERS: PCP Internal Medicine; Visit Provider Surgery
DX: Z87.898 Personal history of other specified conditions (principal)
CPT/HCPCS: 81001

== ENCOUNTER 2023-02-11 14:44 | Outpatient (REF) | payer OTHER, SELFPAY ==
--- NOTE | ~2023-02-11 | US_ITS ---
EXAMINATION: US THYROID CLINICAL INFORMATION: Cervicalgia. COMPARISON: Ultrasound soft tissue neck 09/18/2016. TECHNIQUE: Linear transducer grayscale and color Doppler examination with attention to the region of the thyroid. FINDINGS: SIZE: Measurements of the thyroid lobes and nodules are given in sagittal, anteroposterior and transverse dimensions respectively. Right Thyroid Lobe: 4.9 x 1.0 x 1.5 cm, volume 3.8 mL. Parenchyma: The gland echotexture is homogeneous. Thyroid vascularity is normal. Left Thyroid Lobe: 4.3 x 1.3 x 1.2 cm, volume 3.5 mL. Parenchyma: The gland echotexture is homogeneous. Thyroid vascularity is normal. Isthmus: 0.2 cm in maximum AP dimension. No focal thyroid nodule is seen. NODES: There are abnormal lymph nodes at the level of C3 on the right measured 1.2 x 0.5 x 0.9 cm with echogenic center and hypoechoic cortex the lymph node is hypervascular. In another Lymph nodes at the level 5B measured 1.0 x 0.8 x 1.1 cm with prominent cortex and hypervascular center. US/US thyroid IMPRESSION: Normal thyroid gland. Abnormal lymph nodes in the right neck at level 5B.
== END 2023-02-11 14:45 | disposition home or self-care (01) ==
LOC: HO.US 14:44
PROVIDERS: PCP Internal Medicine; Visit Provider Internal Medicine
DX: M54.2 Cervicalgia (principal)
CPT/HCPCS: 76536

== ENCOUNTER → 2023-02-24 09:08 | Outpatient (BNVA) | payer OTHER, SELFPAY | PROVIDERS: PCP Internal Medicine; Visit Provider Surgery ==

== ENCOUNTER → 2023-02-25 09:14 | Outpatient (BNVA) | payer OTHER, SELFPAY | PROVIDERS: PCP Internal Medicine; Visit Provider Physician Assistant ==

== ENCOUNTER → 2023-03-12 08:58 | Outpatient (BNVA) | payer OTHER, SELFPAY | PROVIDERS: PCP Internal Medicine; Visit Provider Surgery ==

== ENCOUNTER 2023-03-15 06:11 | Outpatient (REF) | payer OTHER, SELFPAY ==
--- NOTE | ~2023-03-15 | US_ITS ---
EXAMINATION: US SOFT TISSUE NECK CLINICAL INFORMATION: Evaluate for lymphadenopathy within the COMPARISON: None available. TECHNIQUE: Ultrasound of the neck soft tissues is performed with high- frequency de la cruz-scale imaging and color Doppler. FINDINGS: RIGHT NECK SOFT TISSUES: There are numerous bilateral lymph nodes seen in the neck with the largest nodule on the right measured 1.1 x 0.5 x 1.0 cm and the largest nodule on the left measured 0.6 x 0.3 0.6 cm. All nodule consistent with reactive appearing with echogenic fatty center and thin cortex. There are no solid masses or abnormal neck lymphadenopathy seen bilaterally. US/US soft tiss head and/or neck IMPRESSION: Reactive appearing bilateral neck lymphadenopathy.
--- NOTE | ~2023-03-15 | XR_ITS ---
EXAMINATION: XR CHEST CLINICAL INFORMATION: Obesity COMPARISON: Previous chest x-ray December 2021 TECHNIQUE: 2 views of the chest were obtained. FINDINGS: The cardiac silhouette does not appear enlarged. There is prominence of the ascending thoracic aorta. Hilar and mediastinal contours are otherwise unremarkable. The lungs are appear. No pleural effusion or pneumothorax. Bony structures are unremarkable. XR/XR chest 2V IMPRESSION: Prominent ascending thoracic aorta. Follow-up echocardiogram or CT or MR of the chest recommended.
[2023-03-15 06:28] LABS: MANUAL DIFF FLAG NO
[2023-03-15 07:27] LABS: Basophils Percent Auto 0.4 % (0-2); Eosinophils Absolute Auto 0.1 X10*3/uL (0.0-0.4); Hematocrit 43.8 % (37.0-47.0); Imm Gran Abs Auto 0.01 X10*3/uL (0.00-0.03); Imm Gran Pct Auto 0.2 % (0.0-0.4); Lymphocytes Absolute Auto 1.9 X10*3/uL (1.2-4.9); Mean Corpuscular Hemoglobin 28.1 pg (27.0-33.0); Mean Corpuscular Volume 87.8 fL (80.0-98.0); Mean Platelet Volume 10.5 fL (9.4-12.3); Monocytes Absolute Auto 0.3 X10*3/uL (0.1-1.2); Monocytes Percent Auto 7.4 % (2-11); Neutrophils Absolute Auto 2.2 x10*3/uL (2.0-8.3); Platelet Count 247 X10*3/uL (160-400); Red Blood Count 4.99 X10*6/uL (4.20-5.50); Red Cell Distribution Width 13.2 % (11.0-16.0); White Blood Count 4.6 X10*3/uL (4.8-10.8)
[2023-03-15 07:42] LABS: Estimated Average Glucose 114 mg/dL; Hemoglobin A1c % 5.6 %
[2023-03-15 08:20] LABS: Alanine Aminotransferase 22 U/L (0-31); Albumin Level 4.4 g/dL (3.5-5.0); Alkaline Phosphatase 77 U/L (39-117); Anion Gap 14 (12-20); Aspartate Amino Transferase 18 U/L (5-31); Bilirubin Total 0.9 mg/dL (0.0-1.0); Blood Urea Nitrogen 16 mg/dL (9-16); C Reactive Protein 0.44 mg/dL (< or = 0.50); Calcium 9.9 mg/dL (8.4-10.2); Carbon Dioxide 26 mmol/L (22-29); Chloride 107 mmol/L (96-108); Cholesterol 190 mg/dL; Estimated Glomerular Filt Rate > 60; Glucose Random 98 mg/dL (60-115); HDL Cholesterol 35 mg/dL; Iron 91 mcg/dL (30-160); LDL Cholesterol Calculated 123 mg/dl; Percent Iron Saturation 29 % (15-50); Potassium 4.4 mmol/L (3.3-5.1); Sodium 143 mmol/L (135-145); Total Iron Binding Capacity 315 mcg/dL (228-428); Total Protein 7.7 g/dL (6.5-8.0); Triglycerides 161 mg/dL; Unsaturated Iron Binding 224 ug/dL
[2023-03-15 08:33] LABS: Ferritin 124 ng/mL (10-250); TSH reflex Free T4 3.02 uIU/mL (0.32-4.0); Vitamin D 25-OH Total 33.2 ng/mL (>30)
[2023-03-15 08:39] LABS: Folate 13.7 ng/mL (> or = 4.0); Vitamin B12 656 pg/mL (200-900)
[2023-03-15 08:53] LABS: Insulin 13 uU/mL (2-29)
--- NOTE | 2023-03-15 11:59 | ECG_ITS ---
Test Reason : E66.01 Blood Pressure : / mmHG Vent. Rate : 061 BPM Atrial Rate : 061 BPM P-R Int : 172 ms QRS Dur : 086 ms QT Int : 408 ms P-R-T Axes : 040 038 028 degrees QTc Int : 410 ms Normal sinus rhythm Normal ECG When compared with ECG of 15-JAN-2022 13:51, No significant change was found Referred By: Fabricio Rodrigez Electronically Signed By:MILVIA CH
[2023-03-16 13:06] LABS: H Pylori Breath Test Negative (Negative)
[2023-03-17 14:18] LABS: Calcium (PTHI) 9.3 mg/dL (8.6-10.2); PTHI 81 pg/mL (16-77)
[2023-03-18 06:17] LABS: Zinc 115 mcg/dL (60-130)
[2023-03-19 18:48] LABS: Vitamin A 54 mcg/dL (38-98)
[2023-03-21 12:02] LABS: Vitamin B1 9 nmol/L (8-30)
== END 2023-03-15 06:12 | disposition home or self-care (01) ==
LOC: HO.US 06:11
PROVIDERS: Absent Provider Surgery; PCP Internal Medicine; Visit Provider Surgery
DX: Z11.2 Encounter for screening for other bacterial diseases (principal); E66.01 Morbid (severe) obesity due to excess calories; K21.9 Gastro-esophageal reflux disease without esophagitis; R59.0 Localized enlarged lymph nodes
CPT/HCPCS: 36415; 71046; 76536; 80053; 80061; 82306; 82607; 82728; 82746; 83013; 83036; 83525; 83540; 83970; 84425; 84443; 84590; 84630; 85025; 86140; 93005

== ENCOUNTER 2023-04-07 08:45 | Outpatient (AMB) | payer OTHER, SELFPAY ==
--- NOTE | 2023-04-07 08:34 | MHC.AMNUTRGE ---
Intake Intake Visit Reasons: VIDEO Initial Nutrition SWL Allergies latex [LATEX] Allergy (Unknown, Verified 03/12/23 13:16) HIVES HPI Nutrition Presentation Reason for consult elevated BMI Diet Assmnt Details Isn't consistent yet with her nutrition plan. She reports her biggest issue is evening snacking. Feels very restricted so isn't following her plan at all. 6-8am Isopure infusions 1/2 scoops in 8oz 10g protein, 45 calories) 9-11am another Isopure same way 12-2pm Zone perfect bar 3-5pm another bar 6pm dinner 7-9pm another bar SWL online classes: none Dietary counseling reduction Meal frequency regular: lunch (salad, rice and chicken from a resturaunt), dinner (tacos, spaghetti ) and snacks (evening snacking ) and never: breakfast Lifestyle Emotional Eating Reports comfort/relaxation Diagnosis Nutrition problem #1 overweight/obesity As related to (etiology) #1 excess energy intake and physical inactivity As evidenced by (sign/symptom) #1 high BMI Monitoring/Goals Nutrition problem monitoring total energy intake, level of knowledge/skill, total PRO intake, total CHO intake and weight Outcome progress not met Learning/Education Readiness to learn good Stages of change contemplation Educational materials provided Yes Most Recent Diabetes Results: Cholesterol 190 mg/dL 03/15/23 HDL Cholesterol 35 mg/dL 03/15/23 Triglycerides 161 mg/dL 03/15/23 Creatinine 0.85 mg/dL (0.5-1.4) 03/15/23 Blood Urea Nitrogen 16 mg/dL (9-16) 03/15/23 Sodium 143 mmol/L (135-145) 03/15/23 Potassium 4.4 mmol/L (3.3-5.1) 03/15/23 Chloride 107 mmol/L (96-108) 03/15/23 Carbon Dioxide 26 mmol/L (22-29) 03/15/23 Calcium 9.9 mg/dL (8.4-10.2) 03/15/23 AST 18 U/L (5-31) 03/15/23 ALT 22 U/L (0-31) 03/15/23 Total Protein 7.7 g/dL (6.5-8.0) 03/15/23 Albumin 4.4 g/dL (3.5-5.0) 03/15/23 [facility] Medical History (Updated 03/20/23 @ 13:52 by Fabricio Rodrigez MD) Adenomyomatosis of gallbladder Anterior cervical adenopathy Family history of thyroid disorder GERD (gastroesophageal reflux disease) Morbid obesity Morbid obesity Surgical History H/O knee surgery Hx of tonsillectomy Family History (Updated 02/25/23 @ 09:32 by NORA Barton) Sister Substance use disorder Mother Hypertension Thyroid disease Father Diabetes Lung cancer Brother No problems noted. Brother No problems noted. Son Asthma Social History (Updated 02/25/23 @ 09:31 by NORA Barton) Housing: House Alcohol intake: current Alcohol intake frequency: holidays/special occasions only Patient Tobacco Use Status: Former Tobacco user e-Cigarette/Vaping Use: Never Used service: No Current occupational status: employed Cognitive needs: No Hearing needs: No Vision needs: No Assessment & Plan Assessment & Plan (1) Morbid obesity: Code(s): E66.01 - Morbid (severe) obesity due to excess calories Patient Instructions: pt will discuss the need for meal plan changes with her surgeon. Recommend a full serving of protein powder in shakes and changing protein bar to lower sugar version (zone macros). Finish online classes. f/u with me 05/12 at 8:30am Telehealth Telehealth Location of provider rendering services: practice address Location of patient: address on file Patient Identification confirmed using: Name, : Yes Telehealth method: video Patient verbally consented to treatment: Yes Patient verbally consented to billing insurance company: Yes Patient informed of any privacy concerns related to visit: Yes Minutes spent on Phone/Video with Pt.: 30 Coding Level of Care Code Nutr Indiv Intake (31786) Diagnoses Morbid obesity E66.01 Time Spent (min) 30
== END 2023-04-07 08:57 | disposition home or self-care (01) ==
LOC: HO.HBS 08:45
PROVIDERS: PCP Internal Medicine; Visit Provider Dietitian, Registered
DX: E66.01 Morbid (severe) obesity due to excess calories (principal)

== ENCOUNTER → 2023-04-07 08:45 | Outpatient (BNVA) | payer OTHER, SELFPAY | PROVIDERS: PCP Internal Medicine; Visit Provider Dietitian, Registered | DX: E66.01 Morbid (severe) obesity due to excess calories (principal); Z71.3 Dietary counseling and surveillance | CPT/HCPCS: 97802 ==

== ENCOUNTER 2023-04-12 09:49 | Outpatient (AMB) | payer OTHER, SELFPAY ==
--- NOTE | 2023-04-12 09:31 | MHC.OFFVISWM ---
Intake VS Expanded 04/12/23 09:32 Height 5 ft 8 in Weight 255 lb 9.6 oz BMI 38.9 Intake Visit Reasons: VIDEO f/u SWL [employer] [address] [employer] Required: No Allergies latex [LATEX] Allergy (Unknown, Verified 03/12/23 13:16) HIVES Medication List - Last Reconciled 04/12/23 by ECHO Torres clotrimazole-betamethasone 1-0.05 % 1 appl topical BID 10 days multivitamin 1 tab PO DAILY HPI HPI Comments History of Present Illness Details 47 yo female returns to clinic for SWL pre-op counseling. Weight today 255.6 pounds with a BMI of 38.9 Initial weight 03/12/23 263.8 with a BMI of 40.1 Weight loss:8.2 pounds, TBWL 3.1 % She states she is cheating on her diet with mashed potatoes and then a pint of ice cream. She also bought Pure protein bars because they were on sale and didn't tell Dr Mc. She states she can go back to the ZP bars and did like them. Discussed importance of communicating to us if she wants/needs to make any changes. Meal plan: 2 Isopure Infusion protein shakes (HALF scoop EACH in 8oz water) at 6am-8am and 9am-11am, 2 protein bars (Zone Perfect protein bars) at 12pm-2pm and 3pm-5pm, dinner at 6pm (10 forks of protein and 10 forks of salad/vegetables) and HALF protein bar at 8pm-9pm if you feel hungry. Drinkin.5 liters daily Exercise plan: nothing, starting today -- going to [employer]. [facility] Medical History Adenomyomatosis of gallbladder Anterior cervical adenopathy Family history of thyroid disorder GERD (gastroesophageal reflux disease) Morbid obesity Morbid obesity Surgical History H/O knee surgery Hx of tonsillectomy Family History Sister Substance use disorder Mother Hypertension Thyroid disease Father Diabetes Lung cancer Brother No problems noted. Brother No problems noted. Son Asthma Social History Housing: House Alcohol intake: current Alcohol intake frequency: holidays/special occasions only Patient Tobacco Use Status: Former Tobacco user e-Cigarette/Vaping Use: Never Used service: No Current occupational status: employed Cognitive needs: No Hearing needs: No Vision needs: No Review of Systems Const All systems reviewed & are unremarkable except as noted in HPI and below Assessment & Plan Assessment & Plan (1) Obesity (BMI 30-39.9): Code(s): E66.9 - Obesity, unspecified Plan: Discussed importance of communicating if any changes to the plans Encouraged to start exercising and refer to original email for goals and instructions. Encouraged to start 3 days/w this week and increase to 5 days/week next week. Reminded of upcoming appts. Continue current meal plan and change back to ZP bars Telehealth Telehealth Location of provider rendering services: practice address Location of patient: other Patient Identification confirmed using: Name, : Yes Telehealth method: video Patient verbally consented to treatment: Yes Patient verbally consented to billing insurance company: Yes Patient informed of any privacy concerns related to visit: Yes Minutes spent on Phone/Video with Pt.: 12 Coding Level of Care Code Tele Est Pt Level 3 (47383) Diagnoses Obesity (BMI 30-39.9) E66.9 Time Spent (min) 18
[2023-04-12 09:32] VITALS: BMI 38.9
== END 2023-04-12 09:52 | disposition home or self-care (01) ==
LOC: HO.HBS 09:50
PROVIDERS: PCP Internal Medicine; Visit Provider Physician Assistant Surgical
DX: E66.9 Obesity, unspecified (principal); Z68.38 Body mass index [BMI] 38.0-38.9, adult
CPT/HCPCS: 99213

== ENCOUNTER → 2023-04-12 09:49 | Outpatient (BNVA) | payer OTHER, SELFPAY | PROVIDERS: PCP Internal Medicine; Visit Provider Physician Assistant Surgical ==

== ENCOUNTER → 2023-04-15 13:00 | Outpatient (BNVA) | payer OTHER, SELFPAY | PROVIDERS: PCP Internal Medicine; Visit Provider Counselor Mental Health | DX: F43.23 Adjustment disorder with mixed anxiety and depressed mood (principal); E66.01 Morbid (severe) obesity due to excess calories ==

== ENCOUNTER 2023-04-21 11:35 | Outpatient (AMB) | payer OTHER, SELFPAY ==
[2023-04-21 11:41] VITALS: BP 122/67; PULSE 70; BMI 38.9
--- NOTE | 2023-04-21 11:41 | MHC.OFFVIS ---
Intake Vital Signs 04/21/23 11:41 Height 5 ft 8 in Weight 256 lb BMI 38.9 BP 122/67 Blood Pressure Location Rt brachial Position Sitting Pulse 70 Intake Visit Reasons: enlarged lymph nodes follow up, US results Intake Note: This patient presents for an assessment for Ultrasound results. Patient denies complaints at this time. Supervisor Powdered Sugar Required: No Accompanied by: Self / Same As Patient Allergies latex [LATEX] Allergy (Unknown, Verified 04/21/23 11:46) HIVES Medication List - Last Reconciled 04/21/23 by Valentin Palafox MD clotrimazole-betamethasone 1-0.05 % 1 appl topical BID 10 days multivitamin 1 tab PO DAILY HPI enlarged lymph nodes follow up, US results HPI Details I had seen her in the office last February 24, 2023 because of cervical lymphadenopathy seen on CT scan. I did not really feel any obvious lymph nodes on her neck at that time. I therefore sent her for an ultrasound of the soft tissue to have a baseline. She says she does not really feel any lumps on her neck. She feels well overall. She is here to discuss her ultrasound report. [facility] Medical History Adenomyomatosis of gallbladder Anterior cervical adenopathy Family history of thyroid disorder GERD (gastroesophageal reflux disease) Morbid obesity Morbid obesity Surgical History H/O knee surgery Hx of tonsillectomy Family History Sister Substance use disorder Mother Hypertension Thyroid disease Father Diabetes Lung cancer Brother No problems noted. Brother No problems noted. Son Asthma Social History Housing: House Alcohol intake: current Alcohol intake frequency: holidays/special occasions only Patient Tobacco Use Status: Former Tobacco user e-Cigarette/Vaping Use: Never Used service: No Current occupational status: employed Cognitive needs: No Hearing needs: No Vision needs: No Review of Systems Const Denies chills and Denies fever(s) Card Denies chest pain, Denies dyspnea and Denies dyspnea on exertion Resp Denies cough, Denies dyspnea and Denies dyspnea on exertion GI Denies hematochezia and Denies change in bowel habits Denies hematuria Musc Denies back pain and Denies limited range of motion Neuro Denies focal weakness and Denies convulsions Psych Denies depression and Denies mood swings Physical Exam Const Other: Obese General: comfortable and no acute distress Orientation/consciousness: patient oriented x3 Neck Other: No palpable neck masses Neck: Yes no lymphadenopathy Resp Auscultation: clear to auscultation bilaterally Cardio Rhythm: regular rhythm GI Palpation (GI): Soft to palpation, nontender and no guarding Neuro General: patient oriented x3 Assessment & Plan Assessment & Plan (1) Anterior cervical adenopathy: Code(s): R59.0 - Localized enlarged lymph nodes Plan: Her ultrasound shows numerous bilateral lymph nodes with largest nose measuring about 1.1 cm in widest dimension. All nodules color consistent with reactive lymphadenopathy. There were no other masses seen on the area I therefore explained to her that these appear to be more of reactive lymphadenopathy. Currently, I do not feel any palpable masses. I did instruct her to continue to do regular self examination of her neck and if she feels any unusual mass, she should come back to the office to be re-evaluated. Coding Level of Care Code Est Pt Level 3 (62704) Diagnoses Anterior cervical adenopathy R59.0
== END 2023-04-21 12:15 | disposition home or self-care (01) ==
PROVIDERS: PCP Internal Medicine; Visit Provider Surgery
DX: R59.0 Localized enlarged lymph nodes (principal)
CPT/HCPCS: 99213

== ENCOUNTER → 2023-04-21 11:35 | Outpatient (BNVA) | payer OTHER, SELFPAY | PROVIDERS: PCP Internal Medicine; Visit Provider Surgery ==

== ENCOUNTER 2023-05-04 13:33 | Outpatient (AMB) | payer OTHER, SELFPAY ==
[2023-05-04 18:24] VITALS: BMI 39.1
--- NOTE | 2023-05-04 18:24 | MHC.OFFVISWM ---
Intake VS Expanded 05/04/23 18:24 Height 5 ft 8 in Weight 257 lb 2 oz BMI 39.1 Body Fat 133.2 Body Fat Percentage 51.8 Free Fat Mass 124 Visceral Mass 21 Water Mass 85.1 BMR 1,586 Intake Visit Reasons: TV Follow Up SWL - 1ST Allergies latex [LATEX] Allergy (Unknown, Verified 04/21/23 11:46) HIVES HPI TV Follow Up SWL - 1ST HPI Details Start time: 3.20pm, End time: 3.40pm I spent 15 minutes speaking with the patient on the phone plus an additional 5 minutes reviewing and updating records for a total of 20 minutes HPI Comments History of Present Illness Details Overall weight loss: 6.6lbs, or 2.5% TBWL Is doing 2 Isopure Infusion protein shakes with 1/2 scoop each in water, 2.5 Zone Perfect protein bars and one meal (10 forks of meat and 10 forks of salad or vegetables) Exercise: is doing treadmill and elliptical for 30min each 2/week [facility] Medical History Adenomyomatosis of gallbladder Anterior cervical adenopathy Family history of thyroid disorder GERD (gastroesophageal reflux disease) Morbid obesity Morbid obesity Surgical History H/O knee surgery Hx of tonsillectomy Family History Sister Substance use disorder Mother Hypertension Thyroid disease Father Diabetes Lung cancer Brother No problems noted. Brother No problems noted. Son Asthma Social History Housing: House Alcohol intake: current Alcohol intake frequency: holidays/special occasions only Patient Tobacco Use Status: Former Tobacco user e-Cigarette/Vaping Use: Never Used service: No Current occupational status: employed Cognitive needs: No Hearing needs: No Vision needs: No Assessment & Plan Assessment & Plan (1) Obesity (BMI 30-39.9): Code(s): E66.9 - Obesity, unspecified Plan: 1. Continue same nutritional plan of 2 Isopure Infusion protein shakes with 1/2 scoop each in water, 2.5 Zone Perfect protein bars and one meal (10 forks of meat and 10 forks of salad or vegetables) 2. You may replace the Isopure protein shakes with Orgain protein shakes mixing one scoop for each shake in 8oz almond milk 3. Exercise: increase treadmill and elliptical to 5 days/week. Goal is to burn 2000 calories per week on exercise, which means either 300 calories daily, or 400 calories 5 days per week, or 500 calories 4 days per week, or 650 calories 3 days per week. You can split the daily calorie goal evenly between the elliptical and the treadmill 4. Send me weight measurements weekly on Tuesdays (2) BMI 39.0-39.9,adult: Code(s): Z68.39 - Body mass index [BMI] 39.0-39.9, adult (3) GERD (gastroesophageal reflux disease): Code(s): K21.9 - Gastro-esophageal reflux disease without esophagitis Telehealth Telehealth Location of provider rendering services: practice address Location of patient: address on file Patient Identification confirmed using: Name, : Yes Telehealth method: voice only Patient verbally consented to treatment: Yes Patient verbally consented to billing insurance company: Yes Patient informed of any privacy concerns related to visit: Yes Minutes spent on Phone/Video with Pt.: 20 Coding Level of Care Code Tele Est Pt Level 3 (19682) Diagnoses Obesity (BMI 30-39.9) E66.9 BMI 39.0-39.9,adult Z68.39 GERD (gastroesophageal reflux disease) K21.9 Time Spent (min) 20
== END 2023-05-04 18:37 | disposition home or self-care (01) ==
LOC: HO.HBS 13:33
PROVIDERS: PCP Internal Medicine; Visit Provider Surgery
DX: E66.9 Obesity, unspecified (principal); Z68.39 Body mass index [BMI] 39.0-39.9, adult; K21.9 Gastro-esophageal reflux disease without esophagitis
CPT/HCPCS: 99213

== ENCOUNTER → 2023-05-04 13:33 | Outpatient (BNVA) | payer OTHER, SELFPAY | PROVIDERS: PCP Internal Medicine; Visit Provider Surgery | DX: E66.01 Morbid (severe) obesity due to excess calories (principal); K21.9 Gastro-esophageal reflux disease without esophagitis ==

== ENCOUNTER 2023-05-05 07:35 | Outpatient (REF) | payer OTHER, SELFPAY ==
--- NOTE | ~2023-05-05 | CT_ITS ---
EXAMINATION: CT ANGIOGRAM CHEST CLINICAL INFORMATION: Thoracic aortic ectasia. COMPARISON: Chest radiograph 03/15/2023: Prominent ascending thoracic aorta. Follow up echocardiogram or CT or MR of the chest recommended. TECHNIQUE: Multiple axial images were obtained through the chest after the administration of 70 mL of Omnipaque 350 intravenous contrast. Extensive vascular post-processing including two-dimensional and three-dimensional reformatted images were created and reviewed on an independent workstation. This CT examination was performed using dose optimization techniques as appropriate, variously including the following: *Automated exposure control *Adjustment of mA and/or kV according to patient size (this includes techniques or standardized protocols for targeted exams where dose is matched to indication/reason for exam; i.e. extremities or head) *Use of iterative reconstruction technique DLP: 182 mGy-cm VASCULAR FINDINGS: The thoracic aorta is nonaneurysmal and unremarkable. Maximal transverse dimension of the ascending aorta is at most 3.5 cm and not aneurysmally dilated. Three-vessel branching pattern of the aortic arch is seen with widely patent great vessels. A tricuspid aortic valve is seen. No definite coronary calcium is seen. Although not carried out for evaluation of the pulmonary arteries or pulmonary veins, no significant abnormality is seen. The small visualized portion of the abdominal aorta is unremarkable. NONVASCULAR FINDINGS: LUNGS: A 2 mm nodule present at the right apex (5:12) along with a 4 mm lung nodule is present in the right middle lobe (5:25). The lungs are otherwise clear with no evidence of inflammation or worrisome nodules. MEDIASTINUM: Thyroid appears normal. No mediastinal or hilar lymphadenopathy. Heart size is normal. PLEURA: There is no pleural effusion. No pleural mass or thickening. AXILLA: No lymphadenopathy. UPPER ABDOMEN: Liver demonstrates decreased attenuation suggesting steatosis. Upper abdomen otherwise unremarkable. OSSEOUS STRUCTURES: Mild degenerative changes in the spine. No bony destructive lesions. CT/CT angio chest aorta IMPRESSION: 1. No evidence of thoracic aortic aneurysm. 2. Incidental note is made of tiny lung nodules, hepatic steatosis and mild degenerative changes in the spine. 2017 Fleischner Society Recommendations for Lung Nodule(s): Follow up based on size (average of long- and short-axis diameters). Use most suspicious nodule for follow up. Multiple Solid lung nodules < 6 mm: Follow up management based on most suspicious nodule. In a low-risk patient, no routine follow up imaging is recommended. In a high-risk patient, a non-contrast chest CT at 12 months is optional. If performed and the nodule is stable at 12 months, no further follow up is recommended. These guidelines do not apply to patients younger than 35 years, immunocompromised patients, and patients with cancer. F/u in patients with significant comorbidities as clinically warranted. For lung cancer screening, adhere to Lung-RADS guidelines. Reference: Radiology. 2017 [place]; 284(1):228-243
[2023-05-05] MEDS: iohexoL 350 MG/ML 100 ML INFUS..BTL IV (08:29)
== END 2023-05-05 07:36 | disposition home or self-care (01) ==
LOC: HO.CT 07:35
PROVIDERS: Visit Provider Physician Assistant Surgical
DX: I77.810 Thoracic aortic ectasia (principal)
CPT/HCPCS: 71275; Q9967

== ENCOUNTER 2023-05-12 08:54 | Outpatient (AMB) | payer OTHER, SELFPAY ==
[2023-05-12 08:32] VITALS: BMI 38.3
--- NOTE | 2023-05-12 08:32 | A.OFFVIS_ITS ---
Intake VS Expanded 05/12/23 08:32 Height 5 ft 8 in Weight 252 lb BMI 38.3 Intake Visit Reasons: VIDEO F/U SWL Boat Hand Required: No Allergies latex [LATEX] Allergy (Unknown, Verified 04/21/23 11:46) HIVES HPI Nutrition Presentation Reason for consult elevated BMI Diet Assmnt Details At previous appts, pt shared she was feeling very restricted so wasn't following her plan at all. 6-8am Isopure infusions 1/2 scoops in 8oz 10g protein, 45 calories) 9-11am another Isopure same way 12-2pm Zone perfect bar 3-5pm another bar 6pm dinner - 4oz protein , a little avocado Came back from vacation 5 days ago, was away for 1.5 weeks and completely through the plan out the window Sometimes skips 2 bars, I just want to get this done SWL online classes: completed. Exercise: none Dietary counseling reduction Diagnosis Nutrition problem #1 overweight/obesity As related to (etiology) #1 excess energy intake and physical inactivity As evidenced by (sign/symptom) #1 high BMI Monitoring/Goals Nutrition problem monitoring total energy intake, level of knowledge/skill, total PRO intake, total CHO intake and weight Outcome progress not met Learning/Education Readiness to learn good Stages of change contemplation Educational materials provided Yes Most Recent Diabetes Results: No Data to Display [facility] Medical History Adenomyomatosis of gallbladder Anterior cervical adenopathy Family history of thyroid disorder GERD (gastroesophageal reflux disease) Morbid obesity Morbid obesity Surgical History H/O knee surgery Hx of tonsillectomy Family History Sister Substance use disorder Mother Hypertension Thyroid disease Father Diabetes Lung cancer Brother No problems noted. Brother No problems noted. Son Asthma Social History Housing: House Alcohol intake: current Alcohol intake frequency: holidays/special occasions only Patient Tobacco Use Status: Former Tobacco user e-Cigarette/Vaping Use: Never Used service: No Current occupational status: employed Cognitive needs: No Hearing needs: No Vision needs: No Assessment & Plan Assessment & Plan (1) Obesity (BMI 30-39.9): Code(s): E66.9 - Obesity, unspecified Patient Instructions: recommend more time in the program . 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 f/u 06/09 9am video Telehealth Telehealth Location of provider rendering services: practice address Location of patient: address on file Patient Identification confirmed using: Name, : Yes Telehealth method: video Patient verbally consented to treatment: Yes Patient verbally consented to billing insurance company: Yes Patient informed of any privacy concerns related to visit: Yes Minutes spent on Phone/Video with Pt.: 30 Coding Level of Care Code Nutr Indiv Subseq (86706) Diagnoses Obesity (BMI 30-39.9) E66.9 Time Spent (min) 30
== END 2023-05-12 08:55 | disposition home or self-care (01) ==
LOC: HO.HBS 08:54
PROVIDERS: PCP Internal Medicine; Visit Provider Dietitian, Registered
DX: E66.9 Obesity, unspecified (principal)

== ENCOUNTER → 2023-05-12 08:54 | Outpatient (BNVA) | payer OTHER, SELFPAY | PROVIDERS: PCP Internal Medicine; Visit Provider Dietitian, Registered | DX: E66.9 Obesity, unspecified (principal); Z68.38 Body mass index [BMI] 38.0-38.9, adult; Z71.3 Dietary counseling and surveillance | CPT/HCPCS: 97803 ==

== ENCOUNTER 2023-05-13 09:04 | Outpatient (REF) | payer OTHER, SELFPAY ==
--- NOTE | ~2023-05-13 | FL_ITS ---
EXAMINATION: XR FLUOROSCOPY UPPER GI WITH AIR CLINICAL INFORMATION: Preoperative bariatric. Patient has no complaints. COMPARISON: None available. TECHNIQUE: Standard air-contrast dual phase upper GI examination was performed utilizing thin and thick barium with effervescent granules. Numerous spot images were obtained. FINDINGS: The esophagus has normal contour, caliber, and mucosal appearance. No masses or strictures. Normal esophageal motility. No evidence of hiatus hernia or GE reflux. The stomach has normal contour and mucosal appearance. No focal abnormalities identified. Contrast freely passed into the duodenum without delay. Images of the duodenal bulb, and proximal duodenum appear normal. FLUOROSCOPY TIME: 2.8 minutes 19 images obtained DOSE AREA PRODUCT: 34.498 uGy-m2 (microgray-meter squared) FL/FL upper GI w air IMPRESSION: Normal upper GI examination.
--- NOTE | ~2023-05-13 | US_ITS ---
EXAMINATION: US COMPLETE ABDOMEN WITH LIVER ELASTOGRAPHY CLINICAL INFORMATION: Morbid obesity. COMPARISON: None available. TECHNIQUE: Real-time imaging of the abdominal viscera. Noninvasive ultrasound liver fibrosis assessment is performed using Cait ElastPQ point quantification shear wave elastography (2D-SWE) with a C5-2 MHz transducer. Multiple elastography samples are obtained. FINDINGS: PANCREAS: Normal. The visualized pancreatic head and body are normal in appearance. The remainder of the pancreas is obscured from visualization by the overlying bowel gas. ABDOMINAL AORTA: The proximal, middle, and distal aortic segments are normal in caliber. INFERIOR VENA CAVA: Visualized portions are normal. LIVER: The liver demonstrates normal size, contour and increased echogenicity. No focal lesion or intrahepatic biliary duct dilatation. The right lobe measures 15.0 cm in length. The left lobe measures 9.7 cm in length. Portal flow is towards the liver (hepatopetal). Shear wave liver elastography median stiffness is 1.88 m/s (reference: normal median stiffness is 1.3 m/s or less). IQR/median stiffness to assess sampling precision is 0.19 (reference: good quality data set is IQR/median stiffness of 0.15 or less). GALLBLADDER: There is ringdown artifact towards the fundus, consistent with adenomyomatosis. The gallbladder is physiologically distended without evidence of stones, sludge, polyps, wall thickening or pericholecystic fluid. COMMON BILE DUCT: Normal in caliber measuring 0.3 cm in diameter. RIGHT KIDNEY: Normal. No hydronephrosis. No renal calculi or focal parenchymal lesions. The kidney measures 12.4 cm in maximum dimension. LEFT KIDNEY: Normal. No hydronephrosis. No renal calculi or focal parenchymal lesions. The kidney measures 11.7 cm in maximum dimension. SPLEEN: Normal. The spleen measures 10.1 cm in maximum dimension. FREE FLUID: None. US/US abdomen comp w elastography IMPRESSION: 1. There is generalized increase in hepatic echotexture, consistent with fatty infiltration or hepatocellular disease. Please correlate clinically. No focal hepatic mass or intrahepatic biliary dilatation is seen. 2. Liver elastography: Although measurements are suggestive of compensated advanced chronic liver disease, there is statistical variability of the sampling which decreases accuracy. 3. There is gallbladder ringdown artifact, consistent with adenomyomatosis. REFERENCE: Society of Radiologists in Ultrasound Liver Stiffness Thresholds (2020): LIVER STIFFNESS THRESHOLDS: *Liver Stiffness equal or less than 1.3 m/s: High probability of being normal. *Liver Stiffness less than 1.7 m/s: In the absence of other known clinical signs, rules out compensated advanced chronic liver disease. *Liver Stiffness 1.7-2.1 m/s: Suggestive of compensated advanced chronic liver disease but need further test for confirmation. *Liver Stiffness over 2.1 m/s: Rules in compensated advanced chronic liver disease. *Liver Stiffness over 2.4 m/s: Suggestive of clinically significant portal hypertension. QUALITY OF DATA SET: *IQR/Median value equal or less than 0.15 implies a quality data set. *IQR/Median value over 0.15 implies a poor quality data set. SIGNIFICANT CHANGE FROM PRIOR EXAM: Significant change if liver stiffness measurement is 10% or greater from prior exam. OTHER CONSIDERATIONS: The stage of liver fibrosis may be overestimated in the setting of acute hepatitis, liver inflammation, elevated liver function tests, hepatic vascular congestion, obstructive cholestasis, non-fasting state, and infiltrative diseases such as amyloidosis and lymphoma. In some patients with NAFLD, the liver stiffness thresholds for compensated advanced chronic liver disease may be lower. In causes other than viral hepatitis and NAFLD, liver stiffness thresholds are not well established.
== END 2023-05-13 09:05 | disposition home or self-care (01) ==
LOC: HO.US 09:04
PROVIDERS: PCP Internal Medicine; Visit Provider Surgery
DX: E66.01 Morbid (severe) obesity due to excess calories (principal); K21.9 Gastro-esophageal reflux disease without esophagitis
CPT/HCPCS: 74246; 76705; 76981

== ENCOUNTER → 2023-05-13 09:18 | Outpatient (BNV) | payer OTHER, SELFPAY | PROVIDERS: PCP Internal Medicine; Visit Provider Radiology Diagnostic Radiology | DX: E66.9 Obesity, unspecified (principal); K21.9 Gastro-esophageal reflux disease without esophagitis | CPT/HCPCS: 74246 ==

== ENCOUNTER 2023-06-02 08:00 | Outpatient (AMB) | payer OTHER, SELFPAY ==
--- NOTE | 2023-06-02 09:43 | MHC.OFFVISWM ---
Intake VS Expanded 06/02/23 09:58 Height 5 ft 8 in Weight 247 lb BMI 37.6 Body Fat 122 Body Fat Percentage 49.4 Free Fat Mass 125 Visceral Mass 19 Water Mass 85.7 BMR 1,579 Intake Visit Reasons: TV Follow Up SWL Allergies latex [LATEX] Allergy (Unknown, Verified 04/21/23 11:46) HIVES HPI TV Follow Up SWL HPI Details Start time: 9.40am, End time: 10.02am ?I spent 17 minutes speaking with the patient on the phone plus an additional 5 minutes reviewing and updating records for a total of 22 minutes HPI Comments History of Present Illness Details Overall weight loss: 16.8lbs, or 6.37% TBWL Is doing 1 Orgain protein shake (1 scoop in 8oz almond milk), one Isopure Infusion protein shake (1/2 scoop in water), 2 Zone Perfect protein bars, and one meal (10 forks of protein and 10 forks of salad or vegetables) Exercise: walking outside x4 /week PFSH Medical History Adenomyomatosis of gallbladder Anterior cervical adenopathy Family history of thyroid disorder GERD (gastroesophageal reflux disease) Morbid obesity Morbid obesity Surgical History H/O knee surgery Hx of tonsillectomy Family History Sister Substance use disorder Mother Hypertension Thyroid disease Father Diabetes Lung cancer Brother No problems noted. Brother No problems noted. Son Asthma Social History Housing: House Alcohol intake: current Alcohol intake frequency: holidays/special occasions only Patient Tobacco Use Status: Former Tobacco user e-Cigarette/Vaping Use: Never Used service: No Current occupational status: employed Cognitive needs: No Hearing needs: No Vision needs: No Assessment & Plan Assessment & Plan (1) Obesity (BMI 30-39.9): Code(s): E66.9 - Obesity, unspecified Plan: 1. Plan for lap sleeve gastrectomy including upper GI endoscopy. All tests has been completed and reviewed and the patient is cleared for the surgery. ?If diaphragmatic or ventral hernias are present at time of surgery, these will be repaired laparoscopically as well. Risks and complications were discussed in detail including possible conversion to an open procedure, anastomotic leak, bleeding requiring transfusion, small bowel obstruction, , DVT and pulmonary embolism, cardiac, or pulmonary complications, as retirement complications such as anastomotic ulcer, insufficient weight loss and vitamin deficiencies. I emphasized the importance of close follow-up, adherence to instructions and good communication. So far she has proven to be an excellent communicator and very compliant with all our directions accomplishing a great weight loss. I believe that she is an excellent candidate and she is ready. 2. Continue same nutritional plan of 1 Orgain protein shake (1 scoop in 8oz almond milk), one Isopure Infusion protein shake (1/2 scoop in water), 2 Zone Perfect protein bars, and one meal (10 forks of protein and 10 forks of salad or vegetables) 3. Exercise: continue walking outside but tack the calories of each walk.Goal is to burn 2000 calories per week on exercise, which means either 300 calories daily, or 400 calories 5 days per week, or 500 calories 4 days per week, or 650 calories 3 days per week. 4. Alternatively purchase a stationary bike, elliptical or treadmill at home that can track calories. Let me know if you do so I can give you an exercise plan. 5. Continue to send me weight measurements on Tuesdays (2) BMI 37.0-37.9, adult: Code(s): Z68.37 - Body mass index [BMI] 37.0-37.9, adult Telehealth Telehealth Location of provider rendering services: practice address Location of patient: address on file Patient Identification confirmed using: Name, : Yes Telehealth method: voice only Patient verbally consented to treatment: Yes Patient verbally consented to billing insurance company: Yes Patient informed of any privacy concerns related to visit: Yes Minutes spent on Phone/Video with Pt.: 22 Coding Level of Care Code Tele Est Pt Level 3 (19941) Diagnoses Obesity (BMI 30-39.9) E66.9 BMI 37.0-37.9, adult Z68.37 Time Spent (min) 22
[2023-06-02 09:58] VITALS: BMI 37.6
== END 2023-06-02 10:03 | disposition home or self-care (01) ==
LOC: HO.HBS 08:00
PROVIDERS: PCP Internal Medicine; Visit Provider Surgery
DX: E66.9 Obesity, unspecified (principal); Z68.37 Body mass index [BMI] 37.0-37.9, adult
CPT/HCPCS: 99213

== ENCOUNTER → 2023-06-02 08:00 | Outpatient (BNVA) | payer OTHER, SELFPAY | PROVIDERS: PCP Internal Medicine; Visit Provider Surgery ==

== ENCOUNTER → 2023-06-09 09:03 | Outpatient (BNVA) | payer OTHER, SELFPAY | PROVIDERS: PCP Internal Medicine; Visit Provider Dietitian, Registered | DX: E66.9 Obesity, unspecified (principal); Z71.3 Dietary counseling and surveillance | CPT/HCPCS: 97803 ==

== ENCOUNTER 2023-06-18 11:52 | Outpatient (AMB) | payer OTHER, SELFPAY ==
--- NOTE | 2023-06-18 12:13 | A.OFFVIS_ITS ---
Intake VS Expanded 06/18/23 12:22 Height 5 ft 8 in Weight 243 lb 6 oz BMI 37.0 Body Fat 118.6 Body Fat Percentage 48.7 Free Fat Mass 125 Visceral Mass 19 Water Mass 85.7 BMR 1,604 Intake Visit Reasons: TV Pre Op LSG 06/23/23 Allergies latex [LATEX] Allergy (Unknown, Verified 06/18/23 12:14) HIVES Medication List - Last Reconciled 06/18/23 by Fabricio Rodrigez MD clotrimazole-betamethasone 1-0.05 % 1 appl topical BID 10 days multivitamin 1 tab PO DAILY ondansetron 4 mg PO Q12H pantoprazole 40 mg PO DAILY polyethylene glycol 3350 (Miralax) 17 grams PO DAILY sucralfate 10 mL PO BID HPI TV Pre Op LSG 06/23/23 HPI Details Start time: 12.05pm, End time: 12.32pm ?I spent 22 minutes speaking with the patient on the phone plus an additional 5 minutes reviewing and updating records for a total of 27 minutes HPI Comments History of Present Illness Details Overall weight loss: 20.2lbs, or 7.66% TBWL Is doing 1 Orgain protein shake (one scoop in 8oz almond milk), one Isopure protein shake (1/2 scoop in 8oz water), 2-3 Zone Perfect protein bars and one meal (10 forks of meat and 10 forks of salad or vegetables). Exercise: going to Gym x3/wk doing treadmill and elliptical for 1500 calories PFSH Medical History Adenomyomatosis of gallbladder Anterior cervical adenopathy Family history of thyroid disorder GERD (gastroesophageal reflux disease) Morbid obesity Morbid obesity Surgical History H/O knee surgery Hx of tonsillectomy Family History Sister Substance use disorder Mother Hypertension Thyroid disease Father Diabetes Lung cancer Brother No problems noted. Brother No problems noted. Son Asthma Social History Housing: House Alcohol intake: current Alcohol intake frequency: holidays/special occasions only Patient Tobacco Use Status: Former Tobacco user e-Cigarette/Vaping Use: Never Used service: No Current occupational status: employed Cognitive needs: No Hearing needs: No Vision needs: No Assessment & Plan Assessment & Plan (1) Obesity (BMI 30-39.9): Code(s): E66.9 - Obesity, unspecified Plan: 1. Plan for lap sleeve gastrectomy including upper GI endoscopy. All tests has been completed and reviewed and the patient is cleared for the surgery. ?If diaphragmatic or ventral hernias are present at time of surgery, these will be repaired laparoscopically as well. Risks and complications were discussed in detail including possible conversion to an open procedure, anastomotic leak, bleeding requiring transfusion, small bowel obstruction, , DVT and pulmonary embolism, cardiac, or pulmonary complications, as extermination supervisor complications such as anastomotic ulcer, insufficient weight loss and vitamin deficiencies. I emphasized the importance of close follow-up, adherence to instructions and good communication. So far she has proven to be an excellent communicator and very compliant with all our directions accomplishing a great weight loss. I believe that she is an excellent candidate and she is ready. 2. Preop prescriptions were provided and explained the purpose of each one. Need to be purchased preop. Start Pantoprazole now as you get it from the pharmacy, 1 pill per day. Sucralfate and Zofran are for after surgery as needed. 3. Bowel prep: please do 7 packets ?of Miralax mixing each one with a an 8oz glass of water, crystal light, gatorade zero, or propel ?TWO days prior to surgery date and the same amount ONE day before your surgery date. Continue the protein shakes during? the bowel prep. 4. Needs to purchase 1oz medicine cups . 5. Needs to purchase Children's liquid Tylenol for postop pain control. 6. Avoid aspirin, motrin, Advil, Aleve, Ibuprofen, Naproxyn. Tylenol is OK. 7. She needs to purchase the Celebrate 4:1 protein shakes from the [facility]'s gift [facility]. 8. Will do basic preop blood work-up tomorrow 06/19/23 fasting for 12 hours and is scheduled to see the Anesthesiologist prior to the day of surgery. 9. Importance of adherence to postop folllow-up and recommendations was underscored and she understands that. 10. Stop food and bars as of today 06/18/23 and continue with 3 Orgain protein shakes (ONE scoop EACH in 8oz almond milk) at 6am-8am, 9am-11am and 12pm-2pm and TWO more ORGAIN protein shakes with TWO scoops in 8oz of almond milk at 3pm-5pm and 6pm-8pm. 11. No soups, broths or V8 12. The patient's?medical?history has been reviewed and they are considered low risk for post op DVT and therefore DVT prophylaxis is not considered necessary. Travel after surgery was reviewed. The patient has not disclosed any travel plans during the first 30 days after surgery and they have been advised that within the first 30 days after surgery any bus, plane, train or car travel over 2 hours in duration is contraindicated due to the possibility of developing blood clots from immobility. Any travel, needs to include periods of ambulation of 10 minutes in duration every 2 hours.? Patient was instructed to discuss any plans for travel during this period with their bariatric surgeon.? 13. Please take at the day of surgery the following medications: NONE 14. Stop any control pills and don't use them for one month after surgery 15. Absolutely no smoking or vaping, or marijuana until the surgery and for at least the first 4 weeks. Only nicotine patches are allowed. 16. Send me weight measurements on the day of surgery before you go to the hospital. 17. Avoid any steroids by mouth for any reason. Let me know if someone prescribes them to you (2) BMI 37.0-37.9, adult: Code(s): Z68.37 - Body mass index [BMI] 37.0-37.9, adult Telehealth Telehealth Location of provider rendering services: practice address Location of patient: address on file Patient Identification confirmed using: Name, : Yes Telehealth method: voice only Patient verbally consented to treatment: Yes Patient verbally consented to billing insurance company: Yes Patient informed of any privacy concerns related to visit: Yes Minutes spent on Phone/Video with Pt.: 27 Coding Level of Care Code Tele Est Pt Level 3 (40269) Diagnoses Obesity (BMI 30-39.9) E66.9 BMI 37.0-37.9, adult Z68.37 Time Spent (min) 27
[2023-06-18 12:22] VITALS: BMI 37.0
== END 2023-06-18 12:32 | disposition home or self-care (01) ==
LOC: HO.HBS 11:52
PROVIDERS: PCP Internal Medicine; Visit Provider Surgery
DX: E66.9 Obesity, unspecified (principal); Z68.37 Body mass index [BMI] 37.0-37.9, adult
CPT/HCPCS: 99213

== ENCOUNTER → 2023-06-18 11:52 | Outpatient (BNVA) | payer OTHER, SELFPAY | PROVIDERS: PCP Internal Medicine; Visit Provider Surgery ==

== ENCOUNTER 2023-06-24 14:32 | Inpatient (IN) | payer OTHER, SELFPAY ==
--- NOTE | 2023-06-18 22:13 | MHC.SHP ---
Pre-Procedural Eval Section A Date of Service: 06/18/23 The patient is an INPATIENT: Yes The History & Physical has been completed within 30 days and I have reviewed it.: Yes Section B Chief Complaint: Obesity, unspecified Relevant Family History (Specify if Yes): No Relevant Social History: None Present Medications: None Medical History: No relevant PMH History of Previous Operations: No relevant previous surgery Allergies: Allergies Allergy/AdvReac Type Severity Reaction Status Date / Time latex [LATEX] Allergy Unknown HIVES Verified 06/18/23 12:14 Review of Systems Sugical H&P ROS: Negative: Constitution, Cardiovascular, Respiratory, Neurological, Psychiatric, Hem-Onc, Allergic/Immunologic, Gastrointestinal, Genitourinary, Musculoskeletal, Integumentary, Endocrine and Eyes/Ears/Nose/Throat Exam Surgical H&P Exam: Normal: HEENT, Normal: Heart, Normal: Lungs, Normal: Extremities, Normal: Abdomen, Normal: Skin and Normal: Neurological Plan Diagnosis/Plan: Unchanged I have reviewed the history and physical and performed a pertinent physical examination on my patient. No changes have occurred unless specified. Time Spent With Patient Time: Total time managing care of this patient today ____ minutes.
[2023-06-19 07:20] LABS: MANUAL DIFF FLAG NO
[2023-06-19 08:03] LABS: Basophils Percent Auto 0.4 % (0-2); Eosinophils Absolute Auto 0.1 X10*3/uL (0.0-0.4); Eosinophils Percent Auto 1.8 % (0-4); Hematocrit 43.1 % (37.0-47.0); Hemoglobin 13.9 g/dl (12.0-16.0); Imm Gran Abs Auto 0.01 X10*3/uL (0.00-0.03); Imm Gran Pct Auto 0.2 % (0.0-0.4); Lymphocytes Absolute Auto 1.8 X10*3/uL (1.2-4.9); Lymphocytes Percent Auto 32.6 % (20-40); Mean Corpuscular HGB Conc 32.3 g/dl (31.0-35.0); Mean Corpuscular Hemoglobin 28.7 pg (27.0-33.0); Mean Platelet Volume 11.1 fL (9.4-12.3); Monocytes Absolute Auto 0.4 X10*3/uL (0.1-1.2); Monocytes Percent Auto 7.7 % (2-11); Neutrophils Absolute Auto 3.1 x10*3/uL (2.0-8.3); Neutrophils Percent Auto 57.3 % (45-73); Platelet Count 223 X10*3/uL (160-400); Red Blood Count 4.84 X10*6/uL (4.20-5.50); Red Cell Distribution Width 12.6 % (11.0-16.0); White Blood Count 5.5 X10*3/uL (4.8-10.8)
[2023-06-19 08:10] LABS: INTERNATIONAL NORM RATIO 0.9 (0.9-1.1); Prothrombin Time 10.7 SEC (11.1-13.3)
[2023-06-19 08:47] LABS: Estimated Average Glucose 114 mg/dL; Hemoglobin A1C 115.9765 umol/L; Hemoglobin A1c % 5.6 % (<6.0)
[2023-06-19 08:51] LABS: Alanine Aminotransferase 25 U/L (0-31); Albumin Level 4.3 g/dL (3.5-5.0); Alkaline Phosphatase 78 U/L (39-117); Anion Gap 12 (12-20); Aspartate Amino Transferase 17 U/L (5-31); Bilirubin Total 0.5 mg/dL (0.0-1.0); Blood Urea Nitrogen 13 mg/dL (9-16); C Reactive Protein 0.58 mg/dL (< or = 0.50); Calcium 9.4 mg/dL (8.4-10.2); Carbon Dioxide 25 mmol/L (22-29); Chloride 109 mmol/L (96-108); Cholesterol 190 mg/dL (<200); Estimated Glomerular Filt Rate > 60; Glucose Random 97 mg/dL (60-115); HDL Cholesterol 37 mg/dL (>40); LDL Cholesterol Calculated 134 mg/dL (<100); Potassium 4.2 mmol/L (3.3-5.1); Sodium 142 mmol/L (135-145); Total Protein 7.4 g/dL (6.5-8.0); Triglycerides 97 mg/dL (<150)
[2023-06-19 09:09] LABS: Insulin 13 uU/mL (2-29); TSH reflex Free T4 1.45 uIU/mL (0.32-4.0)
[2023-06-21 13:23] VITALS: BMI 36.5
--- NOTE | 2023-06-23 09:08 | P.CONAN_ITS ---
Documented by User: Antonina Lora NP 06/23/23 09:09 HPI - Anesthesia Eval Consult details Narrative: 48yo F for Gastrectomy Sleeve, EGD, possible diaphragmatic hernia, possible ventral hernia, possible open PMFSH Active Problems Active Problems: All Active Problems (Updated 06/21/23 @ 13:21 by Mercedes Estrada RN) BMI 37.0-37.9, adult (Acute) BMI 39.0-39.9,adult (Acute) Adjustment disorder with mixed anxiety and depressed mood (Acute) Obesity (BMI 30-39.9) (Acute) Dilation of thoracic aorta (Acute) H/O right flank pain (Acute) Morbid obesity (Acute) Biliary colic symptom (Acute) Acute sinusitis (Acute) GERD (gastroesophageal reflux disease) (Acute) Morbid obesity (Acute) Anterior cervical adenopathy (Acute) Family history of thyroid disorder (Acute) Adenomyomatosis of gallbladder (Acute) Past Medical History Medical History (Updated 06/24/23 @ 12:29 by Fabricio Rodrigez MD) DJD (degenerative joint disease) GERD (gastroesophageal reflux disease) Morbid obesity Anterior cervical adenopathy Family history of thyroid disorder Adenomyomatosis of gallbladder Family History Family History Sister Substance use disorder Mother Hypertension Thyroid disease Father Diabetes Lung cancer Brother No problems noted. Brother No problems noted. Son Asthma Surgical History Surgical History Hx of tonsillectomy H/O knee surgery Social History Social History Housing: House Are you a primary director of healthcare systems to a significant other at home: No Do you presently have visiting nurse or other home services: No Alcohol intake: current Alcohol intake frequency: does not drink Patient Tobacco Use Status: Former Tobacco user Quit Date: 2009 Tobacco use type: Cigarette e-Cigarette/Vaping Use: Never Used Use of substances other than those prescribed or required for medical reasons: No Have you been hit, kicked, punched, or otherwise hurt by someone within the past year? If so, by whom?: No Are you DNR?: No Advance Directives: No ( is primary contact) Advance Directives Information Provided: Yes (brochure maild) Advance Directives on File: No Recently lost weight without trying: No Eating poorly because of decreased appetite: No Nutrition Risks: No Nutritional Risk Patient : No FDLMP: N/A Poor oral hygiene: No service: No Current occupational status: employed Cognitive needs: No Hearing needs: No Vision needs: No Meds Allergies Allergy/AdvReac Type Severity Reaction Status Date / Time latex [LATEX] Allergy Unknown HIVES Verified 06/18/23 12:14 Home Medications Medication Instructions Recorded Confirmed Last Taken Type multivitamin 1 tab PO DAILY 02/24/23 06/21/23 Unknown History Exam Exam Date and Time: June 23, 2023 0908 Height,Weight and Vital Signs: Height 5 ft 8 in Weight 108.862 kg Pertinent Lab Results Pertinent Lab Results: Laboratory Tests 06/19/23 06/19/23 07:06 07:17 WBC 5.5 RBC 4.84 Hgb 13.9 Hct 43.1 MCV 89.0 MCH 28.7 MCHC 32.3 RDW 12.6 Plt Count 223 MPV 11.1 Immature Gran % (Auto) 0.2 Neut % (Auto) 57.3 Lymph % (Auto) 32.6 Ware % (Auto) 7.7 Eos % (Auto) 1.8 Baso % (Auto) 0.4 Lymph # (Auto) 1.8 Ware # (Auto) 0.4 Eos # (Auto) 0.1 Baso # (Auto) 0.0 Abs Immat Gran (auto) 0.01 Absolute Neuts (auto) 3.1 Absolute Nucleated RBC 0.000 Nucleated RBC % (auto) 0.0 PT 10.7 L INR 0.9 APTT 37.0 H Sodium 142 Potassium 4.2 Chloride 109 H Carbon Dioxide 25 Anion Gap 12 BUN 13 Creatinine 0.80 Estim Creat Clear Calc TNP Estimated GFR > 60 Random Glucose 97 Estimat Average Glucose 114 Hemoglobin A1c % 5.6 Insulin Level 13 Calcium 9.4 Total Bilirubin 0.5 AST 17 ALT 25 Alkaline Phosphatase 78 C-Reactive Protein 0.58 H Total Protein 7.4 Albumin 4.3 Triglycerides 97 Cholesterol 190 LDL Cholesterol, Calc 134 H HDL Cholesterol 37 L TSH 1.45 Blood Type O Positive Antibody Screen NEGATIVE Narrative Narrative: EKG 02/2023 Vent. Rate : 061 BPM Atrial Rate : 061 BPM P-R Int : 172 ms QRS Dur : 086 ms QT Int : 408 ms P-R-T Axes : 040 038 028 degrees QTc Int : 410 ms Normal sinus rhythm Normal ECG When compared with ECG of 15-JAN-2022 13:51, No significant change was found Assessment and Plan Assessment Anesthesia Assessment: Chart Reviewed Documented by User: Lorraine Syed MD 06/24/23 14:02 HPI - Anesthesia Eval Consult details Narrative: 48yo F for EGD, Sleeve Gastrectomy, possible diaphragmatic hernia repair, possible ventral hernia repair, possible open PMFSH Active Problems Active Problems: All Active Problems (Updated 06/24/23 @ 12:05 by Lorraine Syed MD) Adjustment disorder with mixed anxiety and depressed mood (Acute) Dilation of thoracic aorta (Acute) H/O right flank pain (Acute) Morbid obesity (Acute) BMI 36.5 Biliary colic symptom (Acute) Acute sinusitis (Acute) GERD (gastroesophageal reflux disease) (Acute) Anterior cervical adenopathy (Acute) Family history of thyroid disorder (Acute) Adenomyomatosis of gallbladder (Acute) Past Medical History Medical History (Updated 06/24/23 @ 12:29 by Fabricio Rodrigez MD) DJD (degenerative joint disease) GERD (gastroesophageal reflux disease) Morbid obesity Anterior cervical adenopathy Family history of thyroid disorder Adenomyomatosis of gallbladder Family History Family History Sister Substance use disorder Mother Hypertension Thyroid disease Father Diabetes Lung cancer Brother No problems noted. Brother No problems noted. Son Asthma Family history of problems with anesthesia: No Surgical History Surgical History Hx of tonsillectomy H/O knee surgery History of Problems with Anesthesia: No Social History Social History Housing: House Are you a primary director of healthcare systems to a significant other at home: No Do you presently have visiting nurse or other home services: No Alcohol intake: current Alcohol intake frequency: does not drink Patient Tobacco Use Status: Former Tobacco user Quit Date: 2009 Tobacco use type: Cigarette e-Cigarette/Vaping Use: Never Used Use of substances other than those prescribed or required for medical reasons: No Have you been hit, kicked, punched, or otherwise hurt by someone within the past year? If so, by whom?: No Are you DNR?: No Advance Directives: No ( is primary contact) Advance Directives Information Provided: Yes (brochure maild) Advance Directives on File: No Recently lost weight without trying: No Eating poorly because of decreased appetite: No Nutrition Risks: No Nutritional Risk Patient : No FDLMP: N/A Poor oral hygiene: No service: No Current occupational status: employed Cognitive needs: No Hearing needs: No Vision needs: No Meds Allergies Allergy/AdvReac Type Severity Reaction Status Date / Time latex [LATEX] Allergy Unknown HIVES Verified 06/18/23 12:14 Home Medications Medication Instructions Recorded Confirmed Last Taken Type multivitamin 1 tab PO DAILY 02/24/23 06/21/23 Unknown History Exam Height,Weight and Vital Signs: Height 5 ft 8 in Weight 108.862 kg Vital Signs Temp Pulse Resp BP Pulse Ox O2 Del Method 06/24/23 10:48 98.5 F 71 16 113/81 95 Room Air Pertinent Lab Results Pertinent Lab Results: Laboratory Tests 06/19/23 06/19/23 07:06 07:17 WBC 5.5 RBC 4.84 Hgb 13.9 Hct 43.1 MCV 89.0 MCH 28.7 MCHC 32.3 RDW 12.6 Plt Count 223 MPV 11.1 Immature Gran % (Auto) 0.2 Neut % (Auto) 57.3 Lymph % (Auto) 32.6 Ware % (Auto) 7.7 Eos % (Auto) 1.8 Baso % (Auto) 0.4 Lymph # (Auto) 1.8 Ware # (Auto) 0.4 Eos # (Auto) 0.1 Baso # (Auto) 0.0 Abs Immat Gran (auto) 0.01 Absolute Neuts (auto) 3.1 Absolute Nucleated RBC 0.000 Nucleated RBC % (auto) 0.0 PT 10.7 L INR 0.9 APTT 37.0 H Sodium 142 Potassium 4.2 Chloride 109 H Carbon Dioxide 25 Anion Gap 12 BUN 13 Creatinine 0.80 Estim Creat Clear Calc TNP Estimated GFR > 60 Random Glucose 97 Estimat Average Glucose 114 Hemoglobin A1c % 5.6 Insulin Level 13 Calcium 9.4 Total Bilirubin 0.5 AST 17 ALT 25 Alkaline Phosphatase 78 C-Reactive Protein 0.58 H Total Protein 7.4 Albumin 4.3 Triglycerides 97 Cholesterol 190 LDL Cholesterol, Calc 134 H HDL Cholesterol 37 L TSH 1.45 Blood Type O Positive Antibody Screen NEGATIVE Laboratory Results - last 24 hr 06/24/23 10:43 Urine Test NEGATIVE Airway Mallampati Class: II TM Dist: >3cm Neck ROM: Full Loose/Missing/Broken Teeth: No (Denies broken, loose, missing teeth ) Heart: RRR Lungs: CTAB Assessment and Plan Assessment Anesthesia Assessment: Anesthesia Plan Discussed Final Anesthetic Review Family History of Problems with Anesthesia: No History of Problems with Anesthesia: No NPO: Yes ASA Class: III Final Preanesthetic Review: No Changes in Pt Med Stat, Meds/Allgs Chart Reviewed, Consent Obtained/Reviewed and Anes Risks/Benef Reviewed Patient Risk: Intermediate Procedure Risk: Intermediate Assessment/Block/Sedation in SS: Assess/Block/Sedation-SS Anesthetic Plan Anesthetic Plan: GA Disposition: Standard PACU
[2023-06-24] VITALS (11 sets, daily range): BP systolic 109–140; BP diastolic 60–81; PULSE 71–98; RESP 16–18; TEMP 36.2–36.9; O2SAT 93–97; BMI 37.8
[2023-06-24] MEDS: Lactated Ringers 1,000 ML 999 ML IV ×2 (11:13→12:42)
[2023-06-24] MEDS: Aprepitant 32 MG/4.4 ML VIAL IVPUSH (11:15)
[2023-06-24 11:18] LABS: UPreg QC Valid YES; Urine Pregnancy NEGATIVE (NEGATIVE)
--- NOTE | 2023-06-24 12:24 | PM.OP ---
Brief Operative Note Date of Service: 06/24/23 Pre-op diagnosis: Severe obesity with comorbidities (see below) Post-op diagnosis: same Procedure: INITIAL PATIENT BMI ON PRESENTATION AT OUR OFFICE: 40.1 kg/m2 LAST BMI BEFORE SURGERY: 37.4 kg/m2 COMORBIDITIES: GERD, DJD, liver steatosis, liver fibrosis, adenomyomatosis of the gallbladder ?The patient presented to the Weight Management Program with significant obesity that was negatively impacting the patient's comorbidities as listed above.? The program is a phased program with a special focus on preoperative medical weight management to promote substantial weight loss and prepare the patients for the second phase of the program: bariatric surgery. The patient participated in an intensive weekly lifestyle ?intervention and exercise program during which the patient ?has lost between the initial office visit and the last preoperative visit 26lbs, or 10.5% of initial actual body weight. It was deemed appropriate for the patient to now have bariatric surgery. In light of the current Covid-19 pandemic and the well documented strong association of obesity and increased risk of worse outcomes if infected with Covid-19 (REFERENCES:https://pubmed.ncbi.nlm.nih.gov/08328877/,?https://pubmed.ncbi.nlm.nih.gov/48325613/), any delay in undergoing bariatric surgery may lead to the patient's worsening health condition and increased?risk of more severe Covid-19 disease if infected. In addition a recent?study from [facility] published in [employer] [facility] on 09/22/2021 ([email or web address]) found that, among patients with obesity, substantial weight loss achieved with surgery was associated with improved outcomes of COVID-19 infection. The findings suggest that obesity can be a modifiable risk factor for the severity of COVID-19 infection. In addition, the patient met the BMI-criteria for bariatric surgery based on the BMI on initial presentation. The patient should not be penalized for achieving such weight loss because ?it is not sustainable long-term without surgical intervention and it was achieved in preparation for bariatric surgery ?under my direction and based on my published research ([email or web address] and?https://www.soard.org/article/W8356-7530(63)63620-X/pdf) ?that a 10% preoperative weight loss improves long-term weight loss after surgery and reduces perioperative complications.? Insurance carriers such as [employer] have endorsed my recommendations ?and have included in their policies criteria to include a 10% preoperative weight loss requirement. PROCEDURE: Esophago-gastroscopy, laparoscopic sleeve gastrectomy and laparoscopic gastropexy INDICATIONS: This is a 48 year-old female who was electively scheduled for laparoscopic, possibly open sleeve gastrectomy. The risks and complications of the procedure were discussed with the patient in advance, particularly the possibility of ; pulmonary embolism; staple line leak; bleeding; GERD; cardiac, pulmonary, or renal complications; as well as long-term problems such as insufficient weight loss, vitamin deficiency, strictures, or ulcers. The patient understood all the risks, and was in agreement to proceed with surgery. DESCRIPTION OF PROCEDURE: After informed consent was obtained from the patient, the patient was given preoperative antibiotics, and was transferred to the operating room. After successful induction of general anesthesia, pneumatic compression devices were placed on both lower extremities. An upper endoscopy was performed next. The oropharynx and esophagus appeared to be within normal limits. There was no diaphragmatic hernia present consistent with the findings of the preoperative upper GI. The stomach was entered. Then after all fluid and air were suctioned and the stomach was fully decompressed, the scope was withdrawn and secured in the mid esophagus. The patient was then prepped and draped in the usual sterile manner, and abdominal access was established at the right upper quadrant with the Jurgen technique. A 12 mm blunt port was inserted, and the abdomen was insufflated with CO2 to a pressure of 15 mmHg. Under direct visualization, additional ports were placed, specifically two 5 mm Versi-step ports to the left upper quadrant, and a 5 mm Versi-Step port to the right upper quadrant. 1% lidocaine plain was used to infiltrate all port sites as well as all fascia defects. Following that, the patient was placed in a steep reverse Trendelenburg position. An additional 5 mm port was placed to the right flank for the Mediflex retractor that was used to retract the left lobe of the liver. The gastro-esophageal fat pad was opened with the ultrasonic device (Thunderbeat, [employer]) and the anterior esophagus and hiatus were exposed. The angle of His was opened with the ultrasonic device the fundus of the stomach from any diaphragmatic and splenic attachments. I then opened the gastrocolic ligament between the transverse colon and the greater curvature of the stomach with the ultrasonic device to enter the lesser sac and facilitate the ligation of the short gastric vessels. I started at a mid-point along the greater curvature and using the Thunderbeat, all short gastric vessels were divided all the way to the angle of His until the left guido was completely dissected at its entirety. I then divided the gastro-colic ligament distally to a distance of about 3-4 cm proximal to the pylorus. The stomach was then divided transversely with two Endo JOSE-45 purple and three JOSE-60 articulating purple loads using the Cinemagram stapler and loads. Every effort was made that the gastric sleeve had a tubular shape and an even caliber throughout. Once the sleeve resection was completed, the staple line of the gastric sleeve was reinforced with Hemoclips. The resected stomach was retrieved without difficulty from the Jurgen port. A gastropexy was then performed in order to prevent postoperative GERD and partial gastric volvulus. Several interrupted 2.0 Surgidac sutures were placed between the sleeve's staple line and the previously divided greater omentum and gastro-colic ligament using the Endo-Stitch device. ?An upper endoscopy was performed. There was no narrowing at the GE junction. The scope was easily advanced all the way to the pylorus which was clearly visualized. There was no narrowing anywhere and the sleeve's caliber was even throughout. The sleeve's staple line was inspected and there was no evidence of ischemia, bleeding or dehiscence. At that point the gastroscope was withdrawn from the patient?s mouth while we were decompressing the bowel and the stomach from any remaining air. I looked into the lesser sac to see how the sleeve was situating and it was situating well. There was no bleeding from the staple line, spleen, or short gastric vessels. The Mediflex retractor was removed, and the undersurface of the liver was inspected and there was no bleeding. The patient was placed in supine position. I closed the fascial defect of the 12 mm port site with a figure of eight #1 Polysorb suture. Then 30cc Ropivacaine plain with 10 mg of Dexamethasone were used to infiltrate the fascial closure as well as all skin incisions. A total of 7ml Zynrelef was applied in the Jurgen wound. At this point, the abdomen was deflated, all ports were removed under direct vision, and no bleeding was noted from any of the port sites. The skin incisions were irrigated with saline and were closed with 4-0 absorbable monofilament sutures. Steri-Strips and OpSites were used to cover all incisions. The patient was extubated and was transferred in stable condition to the recovery room for further care. I was present and performed all comer parts of the procedure. Ms. Chapa was the internet marketing assistant. There were no residents to assist with this case. Issac Rodrigez MD, PhD, FACS Surgeon: Fabricio Rodrigez MD Anesthesia: GETA, local and other (TAP block and 7ml Zynrelef) Was an Steel Fitter used for this Procedure?: Yes Steel Fitter: Linette Chapa Estimated blood loss (mL): 10 IV fluids (mL): 3,000 Urine output (mL): 0 (No martins to record output) Pathology: other (Stomach) Condition: stable Disposition: PACU
--- NOTE | 2023-06-24 12:27 | P.PNGS_ITS ---
Subjective Subjective Date of Service: 06/25/23 Interval history: Feels well. Mild incisional pain. She is tolerating phase 1 bariatric diet Physical Exam 2 Vital Signs: Vital Signs: Last Vital Signs Temp 98.5 F 06/24/23 10:48 Pulse 71 06/24/23 10:48 Resp 16 06/24/23 10:48 BP 113/81 06/24/23 10:48 Pulse Ox 95 06/24/23 10:48 O2 Del Method Room Air 06/24/23 10:48 BMI result Body Mass Index 36.5 GI: Inspection: Yes normal to inspection, Yes incision (clean, dry and intact) and Yes obesity Palpation (GI): Soft to palpation Extrem: Right lower extremity: normal to inspection (no calf tenderness) L eft lower extremity: normal to inspection (no calf tenderness) Objective Data Active Medications Fentanyl (Fentanyl Citrate/Pf 100 Mcg/2 Ml Vial) 25 mcg IVPUSH Q5M PRN; Protocol PRN Reason: Pain, Moderate(Pain Scale 4-6) Hydromorphone HCl (Hydromorphone Hcl 0.5 Mg/0.5 Ml Syringe) 0.25 mg IVPUSH Q5M PRN; Protocol PRN Reason: Pain, Severe (Pain Scale 7-10) Lactated Ringer's (Lr) 1,000 mls @ 100 mls/hr IVCONT .Q10H [facility] Lactated Ringer's (Lr) 1,000 mls @ 999 mls/hr IV .Q1H1M [facility] Stop: 06/24/23 12:30 Last Admin: 06/24/23 11:13 Dose: 999 mls/hr Documented By: ENEDELIA Promethazine HCl 6.25 mg/ (Sodium Chloride) 50.25 mls @ 201 mls/hr IV ONCE PRN PRN Reason: Nausea and Vomiting Ondansetron HCl (Ondansetron Hcl 4 Mg/2 Ml Vial) 4 mg IVPUSH ONCE PRN PRN Reason: Nausea and Vomiting Labs 06/25/23 06:15 06/25/23 06:15 Labs: Laboratory Results - last 24 hr 06/24/23 10:43 Urine Test NEGATIVE Procedures Date of Service Date of Service: 06/25/23 Progress Note: A&P Assessment and plan (1) Obesity (BMI 30-39.9): Status: Acute Assessment and Plan: s/p laparoscopic sleeve gastrectomy and gastropexy Doing well Will check am labs and if OK the patient will be discharged home (2) BMI 37.0-37.9, adult: Status: Acute (3) Adenomyomatosis of gallbladder: Status: Acute (4) GERD (gastroesophageal reflux disease): Status: Acute (5) Steatosis, liver: Status: Acute (6) Liver fibrosis: Status: Acute (7) DJD (degenerative joint disease): Status: Acute (8) S/P laparoscopic sleeve gastrectomy: Status: Acute Time Spent With Patient Time: Total time managing care of this patient today ____ minutes. Quality Stroke Does the patient have a stroke diagnosis?: No VTE Prior VTE?: No VTE Risk Level:: Surgical - moderate VTE Device Contraindication: N/A - Device Ordered VTE Drug Contraindication: Treatment Not Indicated
--- NOTE | 2023-06-24 12:56 | P.DS_ITS ---
DS: Providers Provider Date of Service: 06/25/23 Primary care physician: Radha Bills MD DS: Diagnosis Discharge Diagnosis (1) Obesity (BMI 30-39.9): Status: Acute (2) BMI 37.0-37.9, adult: Status: Acute (3) Adenomyomatosis of gallbladder: Status: Acute (4) GERD (gastroesophageal reflux disease): Status: Acute (5) Steatosis, liver: Status: Acute (6) Liver fibrosis: Status: Acute (7) DJD (degenerative joint disease): Status: Acute DS: Summary Hospital Course Hospital Course: ADMITTING DIAGNOSIS: morbid obesity, GERD DISCHARGE DIAGNOSIS: same, s/p laparoscopic sleeve gastrectomy PAST SURGICAL HISTORY: none PROCEDURE: upper endoscopy, laparoscopic sleeve gastrectomy DISCHARGE SUMMARY: History of Present Illness: The patient is a 48 year-old woman with a BMI of 40.1 kg/m2 and associated co- morbidities as described above. The patient had extensive work-up, lost 20.2 lbs preoperatively and was electively scheduled for laparoscopic, possible open sleeve gastrectomy and gastropexy. Risks and complications of the surgery were discussed with the patient in advance, particularly the possibility of , pulmonary embolism, anastomotic leak, bleeding, bowel injury, GERD, cardiac, renal or pulmonary complications. The patient understood all the risks and was in agreement with the surgical plan. Hospital Course: The patient underwent an uneventful laparoscopic sleeve gastrectomy with gastropexy on the day of admission. Postoperatively, the patient was transferred to the surgical floor. The patient received IV Acetaminophen and IV dilaudid for pain control. Patient was started on bariatric phase 1 diet POD #0. On postoperative day one, the patient was feeling well without nausea, vomiting, fevers, or tachycardia. The patient had some mild incisional pain and the abdomen was soft. On the morning of postoperative day one, the patient was continued on 1 ounce of water or ice every half hour. During the day, the patient did fairly well, having some incisional pain, but able to ambulate adequately and to tolerate liquids well. Since the patient is doing well, we decided that the patient was ready to be discharged. The patient was given instructions to follow-up with me next week and to call my office for any fever over 101, persistent abdominal pain, nausea, vomiting, GERD, symptoms of DVT such as calf tenderness, or leg swelling, or pulmonary embolism such as chest pain or shortness of breath. The patient was also instructed to drink 40-60 ounces of liquids per day using the 1-ounce cups. The patient had been given prescriptions for Tylenol for pain, Zofran prn for nausea, and pantoprazole and carafate previously. The patient was encouraged to ambulate and use the incentive spirometer. The patient was allowed to shower, but no baths, and encouraged to stay active at home. All of these instructions were given to the patient personally. All questions were answered and the patient understood all instructions, the instructions were also given to the patient in print. Time Spent with Patient Time attestation: Total time managing care of this patient today ____ minutes. Discharge coordination time: Less than 30 minutes Quality: Safe Use of Opioids Does Pt have an Active Cancer Diagnosis on the Problem List?: No Quality: Stroke Does the patient have a stroke diagnosis?: No Physical Exam Vital Signs: Vital Signs: Last Vital Signs Temp 98.5 F 06/24/23 10:48 Pulse 71 06/24/23 10:48 Resp 16 06/24/23 10:48 BP 113/81 06/24/23 10:48 Pulse Ox 95 06/24/23 10:48 O2 Del Method Room Air 06/24/23 10:48 BMI result Body Mass Index 36.5 DS: Data Data Completed and Pending Labs on day of discharge: Laboratory Results - last 24 hr 06/24/23 10:43 Urine Test NEGATIVE Discharge Plan Discharge Anticipated Discharge Date/Time: 06/25/23 08:08 Patient Disposition: Home, Self-Care Discharge Diagnosis: Severe obesity Referrals: Radha Bills MD [Primary Care Provider] - 1 Week Discharge Medications: Continued pantoprazole 40 mg tablet,delayed release (DR/EC) 40 mg PO DAILY Qty: 30 2RF sucralfate 100 mg/mL suspension 10 ml PO BID Qty: 400 2RF ondansetron 4 mg tablet,disintegrating 4 mg PO Q12H Qty: 20 0RF Rx Instructions: Only take one every 12 hours as needed if you have nausea clotrimazole-betamethasone 1-0.05 % cream 1 appl topical BID 10 Days Qty: 45 0RF Discontinued multivitamin Tablet 1 tab PO DAILY Discharge Orders: Discharge Order (Routine); Ordered 06/25/23 Ordered By: Fabricio Rodrigez Activity on Discharge: No heavy lifting Activity Restrictions/Additional Instructions: No tub baths, sex or returning to work until discussed at first post op appointment. No exercise, alcohol, tobacco or illegal drug use. Continue to use incentive spirometer hourly while awake. Walk in home for 5- 10 minutes every 2 hours during the first week. Continue phase 1 diet today and start phase 2 diet tomorrow morning. Follow all instructions in the bariatric handbook and call with any questions. 1. Please call your doctor or come back to the emergency room should any new symptoms arise. 2. You will receive a courtesy call from [facility] 24-48 hours after discharge. 3. Activity: abstain from alcohol, practice limited stair climbing, no bending, no driving, no exercise, no illicit substances, no lifting, no sex, no tub bath, no work. 4. Diet: continue as discussed with bariatric team.. 5. Dressing Change/Wound Care: Do not change or remove surgical dressings unless they are wet or soiled. 6. Call your doctor if: - Your temperature exceeds 101.5 F - You experience excessive pain or swelling - You have an unexpected reaction to medication - You have excessive bleeding - You experience continued vomiting/nausea - Your incision begins to separate - Your incision shows signs of infection such as increased redness, swelling, excessive pain, heat, or drainage (light blood or clear fluid is normal) 7. General instructions: No lifting greater than 5 lbs for 1 week and not more than 20lbs the next 3?weeks. No driving until seen at the office in 5-7 days after surgery. If you do not move your bowels in the next 2 days, please tell?Dr. Rodrigez. Please walk around your home every hour or two to prevent blood clots from forming in your legs. You do not need to wake from sleeping to walk. Please sleep in a bed or couch to prevent kinking at the hips and knees. Please take your incentive spirometer (your lung towel cabinet repairer) home with you and use it for the next few days to prevent pneumonia. You may shower, no hot tubs, baths or swimming pools.?Please follow the post op diet instructions you are?given by Dr Jesusita coffman? and text me daily at 5-6pm for an update.?If you have any issues or concerns or questions please communicate this to him via text.? The Celebrate shakes have all of the bariatric vitamins you need if you consume these shakes. If you are drinking other protein shakes, you will need to purchase the Celebrate multivitamins and calcium that are available in the hospital gift shop on the first floor of the [facility].??Do not take anything without first discussing with Dr Rodrigez. Please make sure you are consuming at least 40 ounces of fluids per day starting the?day AFTER your discharge from the hospital. Always drink 1-2 ml per minute using the 5ml?syringe. If you drink faster you may experience?bloating,?gas pain, burping, nausea or heartburn. In that case please slow down your pace and use the syringe to?understand better the?proper?pace and volume of drinking. Do not hesitate to contact the office with any questions at . The patient's medical history has been reviewed and they are considered low risk for post op DVT and therefore DVT prophylaxis is not considered necessary. Travel after surgery was reviewed. The patient has not disclosed any travel plans during the first 30 days after surgery and they have been advised that within the first 30 days after surgery any bus, plane, train or car travel over 2 hours in duration is contraindicated due to the possibility of developing blood clots from immobility. Any travel, needs to include periods of ambulation of 10 minutes in duration every 2 hours. The patient was instructed to discuss any plans for travel during this period with their bariatric surgeon. Care Plan Goals: weight loss Health Concerns: obesity Plan of Treatment: No tub baths, sex or returning to work until discussed at first post op appointment. No exercise, alcohol, tobacco or illegal drug use. Continue to use incentive spirometer hourly while awake. Walk in home for 5- 10 minutes every 2 hours during the first week. Continue phase 1 diet today and start phase 2 diet tomorrow morning. Follow all instructions in the bariatric handbook and call with any questions. 1. Please call your doctor or come back to the emergency room should any new symptoms arise. 2. You will receive a courtesy call from [facility] 24-48 hours after discharge. 3. Activity: abstain from alcohol, practice limited stair climbing, no bending, no driving, no exercise, no illicit substances, no lifting, no sex, no tub bath, no work. 4. Diet: continue as discussed with bariatric team.. 5. Dressing Change/Wound Care: Do not change or remove surgical dressings unless they are wet or soiled. 6. Call your doctor if: - Your temperature exceeds 101.5 F - You experience excessive pain or swelling - You have an unexpected reaction to medication - You have excessive bleeding - You experience continued vomiting/nausea - Your incision begins to separate - Your incision shows signs of infection such as increased redness, swelling, excessive pain, heat, or drainage (light blood or clear fluid is normal) 7. General instructions: No lifting greater than 5 lbs for 1 week and not more than 20lbs the next 3?weeks. No driving until seen at the office in 5-7 days after surgery. If you do not move your bowels in the next 2 days, please tell?Dr. Rodrigez. Please walk around your home every hour or two to prevent blood clots from forming in your legs. You do not need to wake from sleeping to walk. Please sleep in a bed or couch to prevent kinking at the hips and knees. Please take your incentive spirometer (your lung towel cabinet repairer) home with you and use it for the next few days to prevent pneumonia. You may shower, no hot tubs, baths or swimming pools.?Please follow the post op diet instructions you are?given by Dr Jesusita coffman? and text me daily at 5-6pm for an update.?If you have any issues or concerns or questions please communicate this to him via text.? The Celebrate shakes have all of the bariatric vitamins you need if you consume these shakes. If you are drinking other protein shakes, you will need to purchase the Celebrate multivitamins and calcium that are available in the hospital gift shop on the first floor of the main hospital.??Do not take anything without first discussing with Dr Rodrigez. Please make sure you are consuming at least 40 ounces of fluids per day starting the?day AFTER your discharge from the hospital. Always drink 1-2 ml per minute using the 5ml?syringe. If you drink faster you may experience?bloating,?gas pain, burping, nausea or heartburn. In that case please slow down your pace and use the syringe to?understand better the?proper?pace and volume of drinking. Do not hesitate to contact the office with any questions at . The patient's medical history has been reviewed and they are considered low risk for post op DVT and therefore DVT prophylaxis is not considered necessary. Travel after surgery was reviewed. The patient has not disclosed any travel plans during the first 30 days after surgery and they have been advised that within the first 30 days after surgery any bus, plane, train or car travel over 2 hours in duration is contraindicated due to the possibility of developing blood clots from immobility. Any travel, needs to include periods of ambulation of 10 minutes in duration every 2 hours. The patient was instructed to discuss any plans for travel during this period with their bariatric surgeon. Assessment: stable psot op sleeve gastrectomy Discharge Date/Time: 06/25/23 10:22
--- NOTE | 2023-06-24 15:05 | PHA.MEDREC ---
Pharmacy Consult ? Medication Reconciliation Pharmacy has completed the medication reconciliation.PHARMACY HAS REVIEWED MED REC DONE BY NURSING
[2023-06-24 16:24] LABS: Hematocrit 39.7 % (37.0-47.0)
[2023-06-24 16:37] LABS: Anion Gap 16 (12-20); Blood Urea Nitrogen 13 mg/dL (9-16); Calcium 8.7 mg/dL (8.4-10.2); Carbon Dioxide 22 mmol/L (22-29); Chloride 107 mmol/L (96-108); Creatinine Clr Calc Pharmacy 115.4; Estimated Glomerular Filt Rate > 60; Glucose Random 121 mg/dL (60-115); Potassium 3.8 mmol/L (3.3-5.1); Sodium 141 mmol/L (135-145)
[2023-06-24] MEDS: Lactated Ringers 1,000 ML 100 ML IVCONT (16:58)
[2023-06-24] MEDS: 0.9 % Sodium Chloride Flush 3 ML SYRINGE IVFLUSH ×2 (16:58→20:16)
[2023-06-24] MEDS: Famotidine/PF 20 MG/2 ML VIAL IVPUSH ×2 (17:05→20:15)
[2023-06-24] MEDS: ceFAZolin Sodium/Dextrose,Iso 2 GM/50 ML PIGGYBACK IV (18:22)
[2023-06-24] MEDS: Acetaminophen 1,000 MG/100 ML PIGGYBACK 16.7 MG IV (20:15)
[2023-06-24] MEDS: HYDROmorphone HCl 0.5 MG/0.5 ML SYRINGE 0.25 MG IVPUSH (21:28)
[2023-06-25] MEDS: Acetaminophen 1,000 MG/100 ML PIGGYBACK 16.7 MG IV ×2 (01:53→07:28)
[2023-06-25] MEDS: Lactated Ringers 1,000 ML 100 ML IVCONT (01:53)
[2023-06-25] MEDS: HYDROmorphone HCl 0.5 MG/0.5 ML SYRINGE 0.25 MG IVPUSH (01:58)
[2023-06-25 04:00] VITALS: BP 127/67; PULSE 64; RESP 17; TEMP 36.3; O2SAT 95
[2023-06-25 06:41] LABS: Basophils Percent Auto 0.1 % (0-2); Hematocrit 37.5 % (37.0-47.0); Hemoglobin 12.4 g/dl (12.0-16.0); Imm Gran Abs Auto 0.02 X10*3/uL (0.00-0.03); Imm Gran Pct Auto 0.3 % (0.0-0.4); Lymphocytes Absolute Auto 0.9 X10*3/uL (1.2-4.9); Lymphocytes Percent Auto 12.1 % (20-40); MANUAL DIFF FLAG NO; Mean Corpuscular HGB Conc 33.1 g/dl (31.0-35.0); Mean Corpuscular Hemoglobin 27.9 pg (27.0-33.0); Mean Corpuscular Volume 84.5 fL (80.0-98.0); Mean Platelet Volume 10.6 fL (9.4-12.3); Monocytes Absolute Auto 0.3 X10*3/uL (0.1-1.2); Monocytes Percent Auto 3.5 % (2-11); Neutrophils Absolute Auto 6.5 x10*3/uL (2.0-8.3); Platelet Count 199 X10*3/uL (160-400); Red Blood Count 4.44 X10*6/uL (4.20-5.50); Red Cell Distribution Width 12.3 % (11.0-16.0); White Blood Count 7.7 X10*3/uL (4.8-10.8)
[2023-06-25 06:53] LABS: Anion Gap 14 (12-20); Blood Urea Nitrogen 9 mg/dL (9-16); Calcium 9.1 mg/dL (8.4-10.2); Carbon Dioxide 21 mmol/L (22-29); Chloride 108 mmol/L (96-108); Creatinine Clr Calc Pharmacy 133.4; Estimated Glomerular Filt Rate > 60; Glucose Random 120 mg/dL (60-115); Potassium 4.1 mmol/L (3.3-5.1); Sodium 139 mmol/L (135-145)
[2023-06-25 07:27] VITALS: BP 125/78; PULSE 66; RESP 12; TEMP 36.6; O2SAT 97
[2023-06-25] MEDS: Famotidine/PF 20 MG/2 ML VIAL IVPUSH (07:28)
--- NOTE | 2023-06-25 14:06 | HO.POSTANES ---
Post Anesthesia Evaluation Post Anesthesia Evaluation Date of Service: 06/25/23 Vital Signs: Vital Signs Temp Pulse Resp BP Pulse Ox O2 Del Method 06/25/23 07:27 97.8 F 66 12 125/78 97 Room Air 06/25/23 04:00 97.4 F 64 17 127/67 95 Anesthesia: General Endotracheal-GETA Mental Status: Awake Pain Control: Satisfactory Nausea/Vomiting: None Hydration: Adequate Anesthesia-Related Issues: No Anes. Related Issues
== END 2023-06-25 10:22 | disposition home or self-care (01) | DRG 403 ==
LOC: HO.S3 14:57
PROVIDERS: Nurse Practitioner; Physician Assistant; Admitting Provider Surgery; PCP Internal Medicine; Visit Provider Surgery
PROC: 0DB64Z3 Excision of Stomach, Percutaneous Endoscopic Approach, Vertical (ICD-10-PCS; CPT 43845; principal; 2023-06-24 12:50)
DX: E66.01 Morbid (severe) obesity due to excess calories (principal); K74.00 Hepatic fibrosis, unspecified; K82.8 Other specified diseases of gallbladder; K76.0 Fatty (change of) liver, not elsewhere classified; K21.9 Gastro-esophageal reflux disease without esophagitis; Z68.37 Body mass index [BMI] 37.0-37.9, adult; Z87.891 Personal history of nicotine dependence; Z91.040 Latex allergy status; Z79.899 Other long term (current) drug therapy
CPT/HCPCS: 36415; 80048; 80053; 80061; 81025; 83036; 83525; 84443; 85014; 85018; 85025; 85610; 85730; 86140; 86850; 86900; 86901; 88304; 88305; 88307; 88342; A4649; C9088; C9145; J0131; J0690; J1100; J1170; J2250; J2405; J2550; J2795; J3010

== ENCOUNTER → 2023-06-24 14:32 | Outpatient (BNV) | payer OTHER, SELFPAY | PROVIDERS: Admitting Provider Surgery; PCP Internal Medicine; Visit Provider Surgery | DX: E66.9 Obesity, unspecified (principal); Z68.37 Body mass index [BMI] 37.0-37.9, adult | CPT/HCPCS: 43659; 43775 ==

== ENCOUNTER 2023-06-29 10:27 | Outpatient (AMB) | payer OTHER, SELFPAY ==
--- NOTE | 2023-06-29 10:59 | MHC.OFFVISWM ---
Intake VS Expanded 06/29/23 11:05 BP 116/74 Blood Pressure Location Rt brachial Blood Pressure Position Sitting Pulse 80 Pulse Source Pulse Oximeter Temp 98.2 F Temperature Source Temporal Artery Scan Pulse Oximetry 97 Oxygen Delivery Method Room Air Height 5 ft 9 in Weight 230 lb BMI 34.0 Body Fat % 45.2 Body Fat Mass 103.8 Fat Free Mass 126.2 Visceral Fat Rating 11.0 Body Water % 39.1 Body Water Mass 90.0 Muscle Mass/Score 119.8 Basal Metabolic Rate/Score 1,770 Intake Visit Reasons: (OV) 5 Days PO LSG 06/24/23 Make Up Operator Helper Required: No Allergies latex [LATEX] Allergy (Unknown, Verified 06/29/23 11:03) HIVES Medication List - Last Reconciled 06/29/23 by ECHO Torres pantoprazole 40 mg PO DAILY sucralfate 10 mL PO BID HPI HPI Comments History of Present Illness Details 48 yo female POD 5 s/p LSG 06/24/23. Melissa meal plan 3 celebrate 4 in 1 shakes w 1 scoop each and a total of 40-50 oz fluids daily pos bm PFSH Medical History (Updated 06/26/23 @ 00:03 by Yarelis Bai) BMI 37.0-37.9, adult DJD (degenerative joint disease) GERD (gastroesophageal reflux disease) Morbid obesity Anterior cervical adenopathy Family history of thyroid disorder Adenomyomatosis of gallbladder Surgical History Hx of tonsillectomy H/O knee surgery Family History Sister Substance use disorder Mother Hypertension Thyroid disease Father Diabetes Lung cancer Brother No problems noted. Brother No problems noted. Son Asthma Social History Household Members: Spouse and Children Housing: House Are you a primary child care assistant to a significant other at home: No Do you presently have visiting nurse or other home services: No Alcohol intake: current Alcohol intake frequency: does not drink Patient Tobacco Use Status: Former Tobacco user Quit Date: 2009 Tobacco use type: Cigarette e-Cigarette/Vaping Use: Never Used Second Hand Smoke Exposure: No service: No Current occupational status: employed Cognitive needs: No Hearing needs: No Vision needs: No Assessment & Plan Assessment & Plan (1) S/P laparoscopic sleeve gastrectomy: Code(s): Z98.84 - Bariatric surgery status Plan: POD 5 s/p LSG on 06/24/[address] Rodrigez Weight loss prior to surgery was 24.5 pounds or 9.2% TBWL. Original weight on was 263.8 pounds and op weight was 239.3 pounds. Be sure to text Dr Rodrigez exactly 1 week after surgery your weight from your home scale so he can adjust your meal plan. Continue meal plan until f/u w crystal in 2 weeks May shower, no submersion in bath for another week Continue abdominal binder with activity and exercise for the next 2 weeks. Exercise prior to surgery was elliptical, treadmill and walking, may resume No abdominal exercises for 6 weeks post operatively Will be emailed link to post op video for review Reminded of the pace of drinking, 2 mL per minute, 1 oz/15 min. Coding Level of Care Code Global (89118) Diagnoses S/P laparoscopic sleeve gastrectomy Z98.84
[2023-06-29 11:05] VITALS: BP 116/74; PULSE 80; TEMP 36.8; O2SAT 97; BMI 34.0
== END 2023-06-29 11:16 | disposition home or self-care (01) ==
PROVIDERS: PCP Internal Medicine; Visit Provider Physician Assistant Surgical
DX: E66.9 Obesity, unspecified (principal); Z68.34 Body mass index [BMI] 34.0-34.9, adult; Z90.3 Acquired absence of stomach [part of]; Z98.84 Bariatric surgery status
CPT/HCPCS: 99024

== ENCOUNTER → 2023-06-29 10:27 | Outpatient (BNVA) | payer OTHER, SELFPAY | PROVIDERS: PCP Internal Medicine; Visit Provider Physician Assistant Surgical ==

== ENCOUNTER 2023-07-22 08:20 | Outpatient (AMB) | payer OTHER, SELFPAY ==
--- NOTE | 2023-07-22 08:32 | MHC.OFFVISWM ---
Intake VS Expanded 07/22/23 08:38 BP 125/62 Blood Pressure Location Rt brachial Blood Pressure Position Sitting Pulse 82 Pulse Source Pulse Oximeter Temp 96.4 F L Temperature Source Temporal Artery Scan Pulse Oximetry 96 Oxygen Delivery Method Room Air Height 5 ft 8 in Weight 222 lb 9.6 oz BMI 33.8 Body Fat % 43.0 Body Fat Mass 95.6 Fat Free Mass 126.8 Visceral Fat Rating 10.0 Body Water % 40.6 Body Water Mass 90.4 Muscle Mass/Score 120.4 Basal Metabolic Rate/Score 1,765 Intake Visit Reasons: (OV) PO LSG 06/24/23 Mental Health Program Manager Required: No Allergies latex [LATEX] Allergy (Unknown, Verified 07/22/23 08:35) HIVES Medication List - Last Reconciled 07/22/23 by ECHO Torres docusate sodium (Colace) 100 mg PO DAILY pantoprazole 40 mg PO DAILY sucralfate 10 mL PO BID HPI HPI Comments History of Present Illness Details This?a?48?yo female who is s/p LSG without hiatal hernia repair on?06/24/23. Presents for 1 month post op visit. Weight today is 222.6 pounds, with a BMI of 32.9. There has been a 41.2 pound weight loss,(initial weight 263.8 pounds) since starting the program on 03/12/23 reflecting a 15.6% total body weight loss and a weight loss of 16.7 pounds since surgery (operative weight 239.3 pounds) reflecting a 6.9% TBWL since surgery. No complaints of nausea, emesis, abdominal pain or reflux. Reports infrequent but normal bowel movements every 1-2 days and uses stool softeners regularly. Overall, the patient states that she is doing well however she is getting tired of the shakes and bars and is requesting possible addition of some small food item. Present meal plan includes: celebrate 4 in 1 shake 1 scoop, 7-9 celebrate bar 10-12 1 scoop 1-3 pm bar 4-6 2 scoops 7-9 drinking 32 oz water ? Exercise routine includes: gym daily last 10 days, treadmill, [address] [facility] Medical History BMI 37.0-37.9, adult DJD (degenerative joint disease) GERD (gastroesophageal reflux disease) Morbid obesity Anterior cervical adenopathy Family history of thyroid disorder Adenomyomatosis of gallbladder Surgical History S/P laparoscopic sleeve gastrectomy Hx of tonsillectomy H/O knee surgery Family History Sister Substance use disorder Mother Hypertension Thyroid disease Father Diabetes Lung cancer Brother No problems noted. Brother No problems noted. Son Asthma Social History Household Members: Spouse and Children Housing: House Are you a primary livestock caretaker to a significant other at home: No Do you presently have visiting nurse or other home services: No Alcohol intake: current Alcohol intake frequency: does not drink Patient Tobacco Use Status: Former Tobacco user Quit Date: 2009 Tobacco use type: Cigarette e-Cigarette/Vaping Use: Never Used Second Hand Smoke Exposure: No service: No Current occupational status: employed Cognitive needs: No Hearing needs: No Vision needs: No Review of Systems Const All systems reviewed & are unremarkable except as noted in HPI and below Physical Exam Const General: healthy appearing and no acute distress Resp Effort & Inspection: normal respiratory effort Auscultation: clear to auscultation bilaterally Cardio Rate: regular rate Rhythm: regular rhythm GI Auscultation: normal bowel sounds Extrem General: Yes normal to inspection Assessment & Plan Assessment & Plan (1) S/P laparoscopic sleeve gastrectomy: Code(s): Z98.84 - Bariatric surgery status Plan: Patient was enquiring about adding food items possibly. She states that she will continue her current meal plan for approximately 2 weeks at which point if she wishes, she may substitute 1 scrambled eeg and 2 forkfulls of cottage cheese for 1 of the protein bars every other day if she wishes. She will follow up with registered dietitianLilia in 3 weeks. She has been given my cell phone number to communicate weekly should she have any problems until then. Encouraged to continue her efforts at the gym and may begin weight training in 2 weeks. She was having some constipation taking Colace 100 mg daily with improvement, she may increase this to 1 tablet twice daily as needed. Coding Level of Care Code Global (97806) Diagnoses S/P laparoscopic sleeve gastrectomy Z98.84
[2023-07-22 08:38] VITALS: BP 125/62; PULSE 82; TEMP 35.8; O2SAT 96; BMI 33.8
== END 2023-07-22 09:08 | disposition home or self-care (01) ==
PROVIDERS: PCP Internal Medicine; Visit Provider Physician Assistant Surgical
DX: E66.9 Obesity, unspecified (principal); Z68.33 Body mass index [BMI] 33.0-33.9, adult; Z90.3 Acquired absence of stomach [part of]; Z98.84 Bariatric surgery status
CPT/HCPCS: 99024

== ENCOUNTER → 2023-07-22 08:20 | Outpatient (BNVA) | payer OTHER, SELFPAY | PROVIDERS: PCP Internal Medicine; Visit Provider Physician Assistant Surgical ==

== ENCOUNTER 2023-08-30 10:48 | Outpatient (AMB) | payer OTHER, SELFPAY ==
--- NOTE | 2023-08-30 10:35 | A.OFFVIS_ITS ---
Intake VS Expanded 08/30/23 12:01 Height 5 ft 8 in Weight 203 lb BMI 30.9 Intake Visit Reasons: ([place]) [place] [facility] [place] Research Assoc Required: No Allergies latex [LATEX] Allergy (Unknown, Verified 07/22/23 08:35) HIVES HPI Nutrition Presentation Details [facility] [place] preop weight 240# last weight jul 22 222# current weight 203# Reason for consult elevated BMI Diet Assmnt Details 10.5 weeks PO now Using Orgain 1 scoop powder with 8oz UAM - shakes - But reports she dislikes these ones; has SendUslife shakes (11am - 1pm) 1 protein bar (Atkins, jesus brate) dinner - 2-3 bites protein Hydration: 40oz Exercise: 6 days per week going to the gym for 1 hours and 15 minutes Vitamins: taking Unjury Opurity. Diagnosis Nutrition problem #1 overweight/obesity As related to (etiology) #1 excess energy intake and physical inactivity As evidenced by (sign/symptom) #1 high BMI Monitoring/Goals Nutrition problem monitoring total energy intake, level of knowledge/skill, total PRO intake, total CHO intake and weight Outcome progress progressing Learning/Education Readiness to learn good Stages of change action Educational materials provided Yes Most Recent Diabetes Results: Cholesterol 190 mg/dL (<200) 06/19/23 HDL Cholesterol 37 mg/dL (>40) L 06/19/23 Triglycerides 97 mg/dL (<150) 06/19/23 Creatinine 0.68 mg/dL (0.5-1.4) 06/25/23 Blood Urea Nitrogen 9 mg/dL (9-16) 06/25/23 Sodium 139 mmol/L (135-145) 06/25/23 Potassium 4.1 mmol/L (3.3-5.1) 06/25/23 Chloride 108 mmol/L (96-108) 06/25/23 Carbon Dioxide 21 mmol/L (22-29) L 06/25/23 Calcium 9.1 mg/dL (8.4-10.2) 06/25/23 AST 17 U/L (5-31) 06/19/23 ALT 25 U/L (0-31) 06/19/23 Total Protein 7.4 g/dL (6.5-8.0) 06/19/23 Albumin 4.3 g/dL (3.5-5.0) 06/19/23 [facility] Medical History BMI 37.0-37.9, adult DJD (degenerative joint disease) GERD (gastroesophageal reflux disease) Morbid obesity Anterior cervical adenopathy Family history of thyroid disorder Adenomyomatosis of gallbladder Surgical History S/P laparoscopic sleeve gastrectomy Hx of tonsillectomy H/O knee surgery Family History Sister Substance use disorder Mother Hypertension Thyroid disease Father Diabetes Lung cancer Brother No problems noted. Brother No problems noted. Son Asthma Social History Household Members: Spouse and Children Housing: House Are you a primary skin care technician to a significant other at home: No Do you presently have visiting nurse or other home services: No Alcohol intake: current Alcohol intake frequency: does not drink Patient Tobacco Use Status: Former Tobacco user Quit Date: 2009 Tobacco use type: Cigarette e-Cigarette/Vaping Use: Never Used Second Hand Smoke Exposure: No service: No Current occupational status: employed Cognitive needs: No Hearing needs: No Vision needs: No Assessment & Plan Assessment & Plan (1) Obesity (BMI 30-39.9): Code(s): E66.9 - Obesity, unspecified Plan nutrition f/u 1 month Patient Instructions: goal 80g protein per day via 2 shakes 1/2 container yogurt, CC or a protein bar meal protein and cooked veg Opurity vitamin chewable is 1/d while capsule is 2/d Telehealth Telehealth Location of provider rendering services: practice address Location of patient: address on file Patient Identification confirmed using: Name, : Yes Telehealth method: video Patient verbally consented to treatment: Yes Patient verbally consented to billing insurance company: Yes Patient informed of any privacy concerns related to visit: Yes Minutes spent on Phone/Video with Pt.: 30 Coding Level of Care Code Nutr Indiv Subseq (88805) Diagnoses Obesity (BMI 30-39.9) E66.9 Time Spent (min) 30
[2023-08-30 12:01] VITALS: BMI 30.9
== END 2023-08-30 12:00 | disposition home or self-care (01) ==
LOC: HO.HBS 10:48
PROVIDERS: PCP Internal Medicine; Visit Provider Dietitian, Registered
DX: E66.9 Obesity, unspecified (principal)

== ENCOUNTER → 2023-08-30 10:48 | Outpatient (BNVA) | payer OTHER, SELFPAY | PROVIDERS: PCP Internal Medicine; Visit Provider Dietitian, Registered | DX: E66.9 Obesity, unspecified (principal); Z68.30 Body mass index [BMI] 30.0-30.9, adult; Z98.84 Bariatric surgery status; Z71.3 Dietary counseling and surveillance | CPT/HCPCS: 97803 ==

== ENCOUNTER 2023-09-22 10:34 | Outpatient (AMB) | payer OTHER, SELFPAY ==
--- NOTE | 2023-09-22 10:31 | MHC.AMNUTRGE ---
Intake VS Expanded 09/22/23 10:48 Height 5 ft 8 in Weight 196 lb BMI 29.8 Intake Visit Reasons: (TV) PO LSG 06/24/23 Allergies latex [LATEX] Allergy (Unknown, Verified 07/22/23 08:35) HIVES HPI Nutrition Presentation Details [facility] [place] preop weight 240# weight jul 22 222# Last weight at 2MO PO weight 203# current weight at 3MO 196# Reason for consult elevated BMI Diet Assmnt Details 2 Fairlife shakes (she isn't sure if the 26g, or 42g ones) she will check when she goes home cottage cheese 1/2c fat free 15g protein dinner 2oz or 5 bites and a little cooked veg around 3pm feeling very tired, feeling down . sleeps through the night . Hydration: 48oz plus 20oz gatorade zero Exercise: 6 days per week going to the gym for 1 hours and 15 minutes Vitamins: taking Unjury Opurity chewable - dose is one daily and is taking the full dose Diagnosis Nutrition problem #1 overweight/obesity As related to (etiology) #1 excess energy intake and physical inactivity As evidenced by (sign/symptom) #1 high BMI Monitoring/Goals Nutrition problem monitoring total energy intake, level of knowledge/skill, total PRO intake, total CHO intake and weight Outcome progress progressing Learning/Education Readiness to learn good Stages of change action Educational materials provided Yes Most Recent Diabetes Results: Cholesterol 190 mg/dL (<200) 06/19/23 HDL Cholesterol 37 mg/dL (>40) L 06/19/23 Triglycerides 97 mg/dL (<150) 06/19/23 Creatinine 0.68 mg/dL (0.5-1.4) 06/25/23 Blood Urea Nitrogen 9 mg/dL (9-16) 06/25/23 Sodium 139 mmol/L (135-145) 06/25/23 Potassium 4.1 mmol/L (3.3-5.1) 06/25/23 Chloride 108 mmol/L (96-108) 06/25/23 Carbon Dioxide 21 mmol/L (22-29) L 06/25/23 Calcium 9.1 mg/dL (8.4-10.2) 06/25/23 AST 17 U/L (5-31) 06/19/23 ALT 25 U/L (0-31) 06/19/23 Total Protein 7.4 g/dL (6.5-8.0) 06/19/23 Albumin 4.3 g/dL (3.5-5.0) 06/19/23 PFSH Medical History BMI 37.0-37.9, adult DJD (degenerative joint disease) GERD (gastroesophageal reflux disease) Morbid obesity Anterior cervical adenopathy Family history of thyroid disorder Adenomyomatosis of gallbladder Surgical History S/P laparoscopic sleeve gastrectomy Hx of tonsillectomy H/O knee surgery Family History Sister Substance use disorder Mother Hypertension Thyroid disease Father Diabetes Lung cancer Brother No problems noted. Brother No problems noted. Son Asthma Social History Household Members: Spouse and Children Housing: House Are you a primary career development coordinator to a significant other at home: No Do you presently have visiting nurse or other home services: No Alcohol intake: current Alcohol intake frequency: does not drink Patient Tobacco Use Status: Former Tobacco user Quit Date: 2009 Tobacco use type: Cigarette e-Cigarette/Vaping Use: Never Used Second Hand Smoke Exposure: No service: No Current occupational status: employed Cognitive needs: No Hearing needs: No Vision needs: No Assessment & Plan Assessment & Plan (1) Obesity (BMI 30-39.9): Code(s): E66.9 - Obesity, unspecified Plan continue plan, aadvance to raw veg today. nutrition follow up 10/22 at 10:30am Telehealth Telehealth Location of provider rendering services: practice address Location of patient: other (work, private location , [facility] ) Patient Identification confirmed using: Name, : Yes Telehealth method: video Patient verbally consented to treatment: Yes Patient verbally consented to billing insurance company: Yes Patient informed of any privacy concerns related to visit: Yes Minutes spent on Phone/Video with Pt.: 25 Coding Level of Care Code Nutr Indiv Subseq (72783) Diagnoses Obesity (BMI 30-39.9) E66.9 Time Spent (min) 25
[2023-09-22 10:48] VITALS: BMI 29.8
== END 2023-09-22 10:52 | disposition home or self-care (01) ==
LOC: HO.HBS 10:34
PROVIDERS: PCP Internal Medicine; Visit Provider Dietitian, Registered
DX: E66.9 Obesity, unspecified (principal)

== ENCOUNTER → 2023-09-22 10:34 | Outpatient (BNVA) | payer OTHER, SELFPAY | PROVIDERS: PCP Internal Medicine; Visit Provider Dietitian, Registered | DX: E66.9 Obesity, unspecified (principal); Z68.29 Body mass index [BMI] 29.0-29.9, adult; Z98.84 Bariatric surgery status; Z71.3 Dietary counseling and surveillance | CPT/HCPCS: 97803 ==

== ENCOUNTER 2023-10-22 10:58 | Outpatient (AMB) | payer OTHER, SELFPAY ==
--- NOTE | 2023-10-22 10:36 | MHC.AMNUTRGE ---
Intake VS Expanded 10/22/23 10:50 Height 5 ft 8 in Weight 191 lb BMI 29.0 Intake Visit Reasons: VIDEO PO LSG 06/24/23 Weekend Caregiver Required: No Allergies latex [LATEX] Allergy (Unknown, Verified 07/22/23 08:35) HIVES HPI [place]ation [place] [facility] [place] weight 240# weight 1 MO PO 222# weight at 2MO PO weight 203# weight at 3MO 196# current weight at 4 MO PO 191# Reason for consult elevated BMI Diet Assmnt Details Breakfast Fairlife shakes 30g shake lunch shake 3pm 2 eggs - however feels hungry at this time still dinner 3oz protein with 2oz veg Hydration: 48oz plus 20oz gatorade zero Exercise: 6 days per week going to the gym for 1 hours and 15 minutes does cardio and weight training Vitamins: taking Unjury Opurity chewable - dose is one daily and is taking the full dose Dietary counseling reduction Diagnosis Nutrition problem #1 overweight/obesity As related to (etiology) #1 excess energy intake and physical inactivity As evidenced by (sign/symptom) #1 high BMI Monitoring/Goals Nutrition problem monitoring total energy intake, level of knowledge/skill, total PRO intake, total CHO intake and weight Outcome progress progressing Learning/Education Readiness to learn good Stages of change action Educational materials provided Yes Most Recent Diabetes Results: Cholesterol 190 mg/dL (<200) 06/19/23 HDL Cholesterol 37 mg/dL (>40) L 06/19/23 Triglycerides 97 mg/dL (<150) 06/19/23 Creatinine 0.68 mg/dL (0.5-1.4) 06/25/23 Blood Urea Nitrogen 9 mg/dL (9-16) 06/25/23 Sodium 139 mmol/L (135-145) 06/25/23 Potassium 4.1 mmol/L (3.3-5.1) 06/25/23 Chloride 108 mmol/L (96-108) 06/25/23 Carbon Dioxide 21 mmol/L (22-29) L 06/25/23 Calcium 9.1 mg/dL (8.4-10.2) 06/25/23 AST 17 U/L (5-31) 06/19/23 ALT 25 U/L (0-31) 06/19/23 Total Protein 7.4 g/dL (6.5-8.0) 06/19/23 Albumin 4.3 g/dL (3.5-5.0) 06/19/23 [facility] Medical History BMI 37.0-37.9, adult DJD (degenerative joint disease) GERD (gastroesophageal reflux disease) Morbid obesity Anterior cervical adenopathy Family history of thyroid disorder Adenomyomatosis of gallbladder Surgical History S/P laparoscopic sleeve gastrectomy Hx of tonsillectomy H/O knee surgery Family History Sister Substance use disorder Mother Hypertension Thyroid disease Father Diabetes Lung cancer Brother No problems noted. Brother No problems noted. Son Asthma Social History Household Members: Spouse and Children Housing: House Are you a primary day care worker to a significant other at home: No Do you presently have visiting nurse or other home services: No Alcohol intake: current Alcohol intake frequency: does not drink Patient Tobacco Use Status: Former Tobacco user Quit Date: 2009 Tobacco use type: Cigarette e-Cigarette/Vaping Use: Never Used Second Hand Smoke Exposure: No service: No Current occupational status: employed Cognitive needs: No Hearing needs: No Vision needs: No Assessment & Plan Assessment & Plan (1) Overweight (BMI 25.0-29.9): Code(s): E66.3 - Overweight Plan nutrition follow up 11/24 8:30 Patient Instructions: pt preference breakfast failife shake lunch 2oz protein, 2oz veg or shake or yogurt w fruit and nuts 3pm shake dinner 2oz protein, 2 oz veg discussed ways to add variety and create more balanced meals to help her stay luna longer Telehealth Telehealth Location of provider rendering services: practice address Location of patient: address on file Patient Identification confirmed using: Name, : Yes Telehealth method: video Patient verbally consented to treatment: Yes Patient verbally consented to billing insurance company: Yes Patient informed of any privacy concerns related to visit: Yes Minutes spent on Phone/Video with Pt.: 30 Coding Level of Care Code Nutr Indiv Subseq ([id number]) Diagnoses Overweight (BMI 25.0-29.9) E66.3 Time Spent (min) 30
[2023-10-22 10:50] VITALS: BMI 29.0
== END 2023-10-22 10:59 | disposition home or self-care (01) ==
LOC: HO.HBS 10:58
PROVIDERS: PCP Internal Medicine; Visit Provider Dietitian, Registered
DX: E66.3 Overweight (principal)

== ENCOUNTER → 2023-10-22 10:58 | Outpatient (BNVA) | payer OTHER, SELFPAY | PROVIDERS: PCP Internal Medicine; Visit Provider Dietitian, Registered | DX: E66.3 Overweight (principal); Z68.29 Body mass index [BMI] 29.0-29.9, adult; Z98.84 Bariatric surgery status; Z71.3 Dietary counseling and surveillance | CPT/HCPCS: 97803 ==

== ENCOUNTER → 2023-11-02 07:47 | Outpatient (BNVA) | payer OTHER, SELFPAY | PROVIDERS: PCP Internal Medicine; Visit Provider Physician Assistant Surgical ==

== ENCOUNTER 2023-11-24 08:37 | Outpatient (AMB) | payer OTHER, SELFPAY ==
--- NOTE | 2023-11-24 08:32 | MHC.AMNUTRGE ---
Intake VS Expanded 11/24/23 09:02 Height 5 ft 8 in Weight 184 lb BMI 28.0 Intake Visit Reasons: VIDEO PO G 06/24/23 Tiller Worker Required: No Allergies latex [LATEX] Allergy (Unknown, Verified 07/22/23 08:35) HIVES HPI Nutrition Presentation Details [facility] [place]/24/23 preop weight 240# weight 1 MO PO 222# weight at 2MO PO weight 203# weight at 3MO 196# weight at 4 MO PO 191# current weight at 5MO PO 184# Reason for consult elevated BMI Diet Assmnt Details breakfast failife shake 30g lunch 2oz protein, 2oz veg or shake or yogurt w fruit and nuts 3pm shake dinner 2oz protein, 2 oz veg taking collagen protein - 18g protein , initially was taking for hair loss. doesn't tolerate red meat Would like more variety , such as protein chips , legendary poptarts etc Hydration: 48oz plus 20oz gatorade zero Exercise: 6 days per week going to the gym for 1 hours and 15 minutes does cardio and weight training Vitamins: taking Unjury Opurity chewable - dose is one daily and is taking the full dose Dietary counseling reduction Diagnosis Nutrition problem #1 overweight/obesity As related to (etiology) #1 excess energy intake and physical inactivity As evidenced by (sign/symptom) #1 high BMI Monitoring/Goals Nutrition problem monitoring total energy intake, level of knowledge/skill, total PRO intake, total CHO intake and weight Outcome progress progressing Learning/Education Readiness to learn excellent Stages of change action Educational materials provided Yes Most Recent Diabetes Results: No Data to Display [facility] Medical History BMI 37.0-37.9, adult DJD (degenerative joint disease) GERD (gastroesophageal reflux disease) Morbid obesity Anterior cervical adenopathy Family history of thyroid disorder Adenomyomatosis of gallbladder Surgical History S/P laparoscopic sleeve gastrectomy Hx of tonsillectomy H/O knee surgery Family History Sister Substance use disorder Mother Hypertension Thyroid disease Father Diabetes Lung cancer Brother No problems noted. Brother No problems noted. Son Asthma Social History Household Members: Spouse and Children Housing: House Are you a primary home health care case manager to a significant other at home: No Do you presently have visiting nurse or other home services: No Alcohol intake: current Alcohol intake frequency: does not drink Patient Tobacco Use Status: Former Tobacco user Quit Date: 2009 Tobacco use type: Cigarette e-Cigarette/Vaping Use: Never Used Second Hand Smoke Exposure: No service: No Current occupational status: employed Cognitive needs: No Hearing needs: No Vision needs: No Assessment & Plan Assessment & Plan (1) Overweight (BMI 25.0-29.9): Code(s): E66.3 - Overweight Plan next appt with Dc DODGE for follow up. provided ideas for more variety. also discussed some of the psychological changes and challenges to prepare for as she approaches weight maintenance. Telehealth Telehealth Location of provider rendering services: practice address Location of patient: address on file Patient Identification confirmed using: Name, : Yes Telehealth method: video Patient verbally consented to treatment: Yes Patient verbally consented to billing insurance company: Yes Patient informed of any privacy concerns related to visit: Yes Minutes spent on Phone/Video with Pt.: 30 Coding Level of Care Code Nutr Indiv Subseq ([id number]) Diagnoses Overweight (BMI 25.0-29.9) E66.3 Time Spent (min) 30
[2023-11-24 09:02] VITALS: BMI 28.0
== END 2023-11-24 08:56 | disposition home or self-care (01) ==
LOC: HO.HBS 08:37
PROVIDERS: PCP Internal Medicine; Visit Provider Dietitian, Registered
DX: E66.3 Overweight (principal)

== ENCOUNTER → 2023-11-24 08:37 | Outpatient (BNVA) | payer OTHER, SELFPAY | PROVIDERS: PCP Internal Medicine; Visit Provider Dietitian, Registered | DX: E66.3 Overweight (principal); Z68.28 Body mass index [BMI] 28.0-28.9, adult; Z98.84 Bariatric surgery status; Z71.3 Dietary counseling and surveillance | CPT/HCPCS: 97803 ==

== ENCOUNTER 2024-02-14 09:05 | Outpatient (AMB) | payer OTHER, SELFPAY ==
--- NOTE | 2024-02-14 09:07 | A.OFFVIS_ITS ---
VS Expanded 02/14/24 09:13 BP 121/69 Blood Pressure Location Rt brachial Blood Pressure Position Sitting Pulse 59 Pulse Source Pulse Oximeter Temp 96.5 F L Temperature Source Tympanic Pulse Oximetry 99 Oxygen Delivery Method Room Air Height 5 ft 8 in Weight 174 lb 6.4 oz BMI 26.5 Body Fat % 35.3 Body Fat Mass 61.6 Fat Free Mass 112.8 Visceral Fat Rating 7.0 Body Water % 46.1 Body Water Mass 80.4 Muscle Mass/Score 107.2 Basal Metabolic Rate/Score 1,534 Intake Visit Reasons: (OV) PO LSG 06/24/23 Assisted Sales Representative Required: No Allergies latex [LATEX] Allergy (Unknown, Verified 02/14/24 09:19) HIVES Medication List - Last Reconciled 02/14/24 by ECHO Torres [bariatric fusion MVI PO DAILY] HPI Comments Details: This?a?48?yo female who is s/p LSG without hiatal hernia repair on?06/24/23. Presents for 8 month post op visit. Weight today is 174.4 pounds, with a BMI of 26.5. There has been a 89.4 pound weight loss,(initial weight 263.8 pounds) since starting the program on 03/12/23 reflecting a 33.8% total body weight loss and a weight loss of 64.9 pounds since surgery (operative weight 239.3 pounds) reflecting a 27.1% TBWL since surgery. No complaints of nausea, emesis, abdominal pain or reflux. Reports infrequent but normal bowel movements every 1- 2 days and uses stool softeners regularly. Overall, the patient states that she is doing well. She notes increase in yawning. She has noticed mid back pain for the last few months. Non radiating, no identifying factors to make it better or worse. improving over the last several months. Taking bariatric fusion mvi Present meal plan includes: 6-8 rtd fairlife 30 gm shake noon 2 hb eggs or egg turkey sausage, not measuring by forks 3pm deli turkey or power protein pack. 6pm small salad w chicken, not measuring drinking 40 oz gatorade zero Exercise routine includes: nothing in 6 weeks. [facility] Medical History BMI 37.0-37.9, adult DJD (degenerative joint disease) GERD (gastroesophageal reflux disease) Morbid obesity Anterior cervical adenopathy Family history of thyroid disorder Adenomyomatosis of gallbladder Surgical History S/P laparoscopic sleeve gastrectomy Hx of tonsillectomy H/O knee surgery Family History Sister Substance use disorder Mother Hypertension Thyroid disease Father Diabetes Lung cancer Brother No problems noted. Brother No problems noted. Son Asthma Social History Household Members: Spouse and Children Housing: House Are you a primary critical care transport nurse to a significant other at home: No Do you presently have visiting nurse or other home services: No Alcohol intake: current Alcohol intake frequency: does not drink Patient Tobacco Use Status: Former Tobacco user Quit Date: 2009 Tobacco use type: Cigarette e-Cigarette/Vaping Use: Never Used Second Hand Smoke Exposure: No service: No Current occupational status: employed Cognitive needs: No Hearing needs: No Vision needs: No Physical Exam Vital Signs: Last Vital Signs Temp 96.5 F L 02/14/24 09:13 Pulse 59 02/14/24 09:13 BP 121/69 02/14/24 09:13 Pulse Ox 99 02/14/24 09:13 Oxygen Delivery Method Room Air 02/14/24 09:13 BMI result Body Mass Index 26.5 Const General: healthy appearing and no acute distress Resp Effort & Inspection: normal respiratory effort Auscultation: clear to auscultation bilaterally Cardio Rate: regular rate Rhythm: regular rhythm GI Auscultation: normal bowel sounds Extrem General: Yes normal to inspection Assessment & Plan Assessment & Plan (1) S/P laparoscopic sleeve gastrectomy: Code(s): Z98.84 - Bariatric surgery status Category: Surgical Plan: Change meal plan: Fair life ready to drink shake, split in half, expanded with 6 oz of unsweetened almond milk. First half 6-8 2nd half 11-1 Zone perfect bar 2-4 Meal at 6, 7 forks of protein and 7 forks of vegetables Discussed exercise, add weight training then cardio, 5 days per week with a goal of burning 2000 calories per week or 400 calories per day. Labs from the end of May were not obtained, reminded to get labs done. Set up to phone appointments and an in-person appointment at the end of May or early June for her 1 year postoperative follow-up. Encouraged to text weekly and with any questions or concerns.
[2024-02-14 09:13] VITALS: BP 121/69; PULSE 59; TEMP 35.8; O2SAT 99; BMI 26.5
== END 2024-02-14 09:51 | disposition home or self-care (01) ==
PROVIDERS: PCP Internal Medicine; Visit Provider Physician Assistant Surgical
DX: E66.3 Overweight (principal); Z68.26 Body mass index [BMI] 26.0-26.9, adult; Z90.3 Acquired absence of stomach [part of]; Z98.84 Bariatric surgery status
CPT/HCPCS: 99213

== ENCOUNTER → 2024-02-14 09:05 | Outpatient (BNVA) | payer OTHER, SELFPAY | PROVIDERS: PCP Internal Medicine; Visit Provider Physician Assistant Surgical ==

== ENCOUNTER 2024-03-17 10:38 | Outpatient (AMB) | payer OTHER, SELFPAY ==
--- NOTE | 2024-03-17 09:27 | MHC.OFFVISWM ---
VS Expanded 03/17/24 09:28 Height 5 ft 8 in Weight 167 lb 9.6 oz BMI 25.5 Body Fat % 30.7 Body Fat Mass 51.4 Fat Free Mass 116.2 Visceral Fat Rating 8 Body Water % 47.6 Body Water Mass 79.7 Muscle Mass/Score 109.2 Basal Metabolic Rate/Score 1,518 Intake Visit Reasons: (tV) PO LSG 06/24/23 Jack Frame Tender Required: No Allergies latex [LATEX] Allergy (Unknown, Verified 02/14/24 09:19) HIVES Medication List - Last Reconciled 03/17/24 by ECHO Torres [bariatric fusion MVI PO DAILY] HPI Comments Details: This?a?48?yo female who is s/p LSG without hiatal hernia repair on?06/24/23. Presents for 9 month post op visit. Weight today is 167.6 pounds, with a BMI of 25.5. There has been a 96.2 pound weight loss,(initial weight 263.8 pounds) since starting the program on 03/12/23 reflecting a 36.4% total body weight loss and a weight loss of 71.7 pounds since surgery (operative weight 239.3 pounds) reflecting a 29.9% TBWL since surgery. No complaints of nausea, emesis, abdominal pain or reflux. Reports infrequent but normal bowel movements every 1-2 days and uses stool softeners regularly. Overall, the patient states that she is doing well. She states that the meal plan is a little hard and she feels as though she is hungry but not sure if not really. Taking bariatric fusion mvi Present meal plan includes: Fair life ready to drink shake, 30 gm, split in half, expanded with 6 oz of unsweetened almond milk. First half 6-8 2nd half 11-1 Zone perfect bar 2-4 Meal at 6, 7 forks of protein and 7 forks of vegetables drinking 60 oz gatorade zero Exercise routine includes: PF, 2-3 days per week, treadmill, 25-45 min, speed 3.5 incline 15, 350-400 timothy. maxi climber at home [facility] Medical History BMI 37.0-37.9, adult DJD (degenerative joint disease) GERD (gastroesophageal reflux disease) Morbid obesity Anterior cervical adenopathy Family history of thyroid disorder Adenomyomatosis of gallbladder Surgical History S/P laparoscopic sleeve gastrectomy Hx of tonsillectomy H/O knee surgery Family History Sister Substance use disorder Mother Hypertension Thyroid disease Father Diabetes Lung cancer Brother No problems noted. Brother No problems noted. Son Asthma Social History Household Members: Spouse and Children Housing: House Are you a primary career guidance counselor to a significant other at home: No Do you presently have visiting nurse or other home services: No Alcohol intake: current Alcohol intake frequency: does not drink Patient Tobacco Use Status: Former Tobacco user Tobacco use type: Cigarette e-Cigarette/Vaping Use: Never Used Second Hand Smoke Exposure: No service: No Current occupational status: employed Cognitive needs: No Hearing needs: No Vision needs: No Telehealth Telehealth Telehealth Platform: Telephone Location of provider rendering services: practice address Location of patient: address on file Patient Identification confirmed using: Name, : Yes Telehealth method: voice only Patient verbally consented to treatment: Yes Patient verbally consented to billing insurance company: Yes Patient informed of any privacy concerns related to visit: Yes Minutes spent on Phone/Video with Pt.: 20 Assessment & Plan Assessment & Plan (1) S/P laparoscopic sleeve gastrectomy: Code(s): Z98.84 - Bariatric surgery status Category: Medical Plan: Patient is encouraged to increase her exercise consistency. Discussed the importance of this. Additionally, she may substitute a Irish yogurt or half cup cottage cheese for her protein bar if she wishes. She may additionally have her whole shake 1st thing in the morning and then the bar or yogurt mid day followed by her meal at night. She will text me her weight. Follow-up in the office in 6 weeks.
[2024-03-17 09:28] VITALS: BMI 25.5
== END 2024-03-17 11:50 | disposition home or self-care (01) ==
LOC: HO.HBS 10:38
PROVIDERS: PCP Internal Medicine; Visit Provider Physician Assistant Surgical
DX: E66.3 Overweight (principal); Z68.25 Body mass index [BMI] 25.0-25.9, adult; Z90.3 Acquired absence of stomach [part of]; Z98.84 Bariatric surgery status
CPT/HCPCS: 99442

== ENCOUNTER → 2024-03-17 10:38 | Outpatient (BNVA) | payer OTHER, SELFPAY | PROVIDERS: PCP Internal Medicine; Visit Provider Physician Assistant Surgical | DX: Z98.84 Bariatric surgery status (principal) ==

== ENCOUNTER 2024-04-28 11:19 | Outpatient (AMB) | payer OTHER, SELFPAY ==
[2024-04-28 11:14] VITALS: BMI 25.1
--- NOTE | 2024-04-28 11:14 | MHC.OFFVISWM ---
VS Expanded 04/28/24 11:14 Height 5 ft 8 in Weight 165 lb BMI 25.1 Intake Visit Reasons: (tV) PO LSG 06/24/23 Mobile Security Architect Required: No Allergies latex [LATEX] Allergy (Unknown, Verified 02/14/24 09:19) HIVES Medication List - Last Reconciled 04/28/24 by ECHO Torres [bariatric fusion MVI PO DAILY] HPI Comments Details: This?a?48?yo female who is s/p LSG without hiatal hernia repair on?06/24/23. Presents for 10 month post op visit. Weight today is 165 pounds, with a BMI of 25.1. There has been a 98.8 pound weight loss,(initial weight 263.8 pounds) since starting the program on 03/12/23 reflecting a 37.4% total body weight loss and a weight loss of 74.3 pounds since surgery (operative weight 239.3 pounds) reflecting a 31% TBWL since surgery. No complaints of nausea, emesis, abdominal pain or reflux. Reports infrequent but normal bowel movements every 1-2 days and uses stool softeners regularly. Overall, the patient states that she is doing well. She states that she is doing ok but disappointed in herself as she thinks she is at a plateau. going on vacation on 05/03/24 Taking bariatric fusion mvi Present meal plan includes: Fair life ready to drink shake, 30 gm, split in half, expanded with 6 oz of unsweetened almond milk. First half 6-8 2nd half 11-1, with a HB egg or 1/4 c cottage cheese blackman bar, 20 gm protein 2-4 Meal at 6, 7 forks of protein and 7 forks of vegetables drinking 60 oz gatorade zero Exercise routine includes: 2-3 times in the last month PF, 2-3 days per week, treadmill, 25-45 min, speed 3.5 incline 15, 350-400 timothy. maxi climber at home [facility] Medical History BMI 37.0-37.9, adult DJD (degenerative joint disease) GERD (gastroesophageal reflux disease) Morbid obesity Anterior cervical adenopathy Family history of thyroid disorder Adenomyomatosis of gallbladder Surgical History S/P laparoscopic sleeve gastrectomy Hx of tonsillectomy H/O knee surgery Family History Sister Substance use disorder Mother Hypertension Thyroid disease Father Diabetes Lung cancer Brother No problems noted. Brother No problems noted. Son Asthma Social History Household Members: Spouse and Children Housing: House Are you a primary medicare coordinator to a significant other at home: No Do you presently have visiting nurse or other home services: No Alcohol intake: current Alcohol intake frequency: does not drink Patient Tobacco Use Status: Former Tobacco user Tobacco use type: Cigarette e-Cigarette/Vaping Use: Never Used Second Hand Smoke Exposure: No service: No Current occupational status: employed Cognitive needs: No Hearing needs: No Vision needs: No Telehealth Telehealth Telehealth Platform: Telephone Location of provider rendering services: practice address Location of patient: address on file Patient Identification confirmed using: Name, : Yes Telehealth method: voice only Patient verbally consented to treatment: Yes Patient verbally consented to billing insurance company: Yes Patient informed of any privacy concerns related to visit: Yes Minutes spent on Phone/Video with Pt.: 15 Assessment & Plan Assessment & Plan (1) S/P laparoscopic sleeve gastrectomy: Code(s): Z98.84 - Bariatric surgery status Category: Surgical Plan: Encouraged to follow the meal plan as recommended: Fair life ready to drink shake, 30 gm, split in half, expanded with 6 oz of unsweetened almond milk. First half 6-8 2nd half 11-1, Celebrate protein bar 2-4 Meal at 6, 7 forks of protein and 7 forks of vegetables She was encouraged not to have 10 forks of protein at night. Additionally, text me with any questions or concerns. Discussed the importance of exercise and how it relates directly to her overall health and weight loss goals. She states she is planning on going on vacation next week. Discussed using the resort gym daily. Follow-up in the office as scheduled
== END 2024-04-28 11:34 | disposition home or self-care (01) ==
LOC: HO.HBS 11:19
PROVIDERS: PCP Internal Medicine; Visit Provider Physician Assistant Surgical
DX: E66.3 Overweight (principal); Z98.84 Bariatric surgery status; Z90.3 Acquired absence of stomach [part of]; Z68.25 Body mass index [BMI] 25.0-25.9, adult
CPT/HCPCS: 99442

== ENCOUNTER → 2024-04-28 11:19 | Outpatient (BNVA) | payer OTHER, SELFPAY | PROVIDERS: PCP Internal Medicine; Visit Provider Physician Assistant Surgical ==

== ENCOUNTER 2024-07-13 09:00 | Outpatient (AMB) | payer OTHER, SELFPAY ==
--- NOTE | 2024-07-13 08:39 | MHC.OFFVISWM ---
VS Expanded 07/13/24 09:00 Height 5 ft 8 in Weight 159 lb 8 oz BMI 24.2 Body Fat % 28.6 Visceral Fat Rating 7 Body Water % 49 Muscle Mass/Score 107.2 Basal Metabolic Rate/Score 1,493 Intake Visit Reasons: (TV) PO LSG 06/24/23 Student Specialist Required: No Allergies latex [LATEX] Allergy (Unknown, Verified 02/14/24 09:19) HIVES Medication List - Last Reconciled 07/13/24 by ECHO Torres [bariatric fusion MVI PO DAILY] HPI Comments Details: This?a?48?yo female who is s/p LSG without hiatal hernia repair on?06/24/23. Presents for 1 yr post op visit. Weight today is 159.8 pounds, with a BMI of 24.3. There has been a 104 pound weight loss,(initial weight 263.8 pounds) since starting the program on 03/12/23 reflecting a 39.4% total body weight loss and a weight loss of 79.5 pounds since surgery (operative weight 239.3 pounds) reflecting a 33.2% TBWL since surgery. No complaints of nausea, emesis, abdominal pain or reflux. Reports infrequent but normal bowel movements every 1-2 days and uses stool softeners regularly. Overall, the patient states that she is doing well. She states that she is doing ok and following the meal plans. She fell about 6-7 weeks ago and has had a bone bruise on her buttocks and while this is getting better, she hasn't gone to the gym in weeks. She also wants to change meal plan to include 2 meals. Taking bariatric fusion mvi Present meal plan includes: Fair life ready to drink shake, 30 gm, split in half, expanded with 6 oz of unsweetened almond milk. First half 6-8 2nd half 11-1, Celebrate protein bar 2-4 Meal at 6, 7 forks of protein and 7 forks of vegetables drinking 60 oz gatorade zero Exercise routine includes: PF, 2-3 days per week, treadmill, 25-45 min, speed 3.5 incline 15, 350-400 timothy. maxi climber at home Any post op complications: none CRISTEL: never DM: never HTN: never Hyperlipidemia: never GERD:?0-5 scale ??0 = no symptoms ??1 = symptoms noticeable but not bothersome 2 =symptoms bothersome but not daily ? 3 = symptoms bothersome and daily 4 = symptoms affect daily activities 5 = symptoms are incapacitating, unable to do daily activities ? How bad is the heartburn: 0 ? Heartburn while lying down: 0 ? Heartburn when standing up: 0 ? Heartburn after meals: 0 ? Does heartburn change your diet: 0 ? Does heartburn wake you up from sleep: 0 ? Do you have difficulty swallowin ? Do you have pain with swallowin ? If you take medicine for your reflux, does this affect your daily life: 0 Satisfaction with present condition - satisfied or not satisfied: satisfied [facility] Medical History BMI 37.0-37.9, adult DJD (degenerative joint disease) GERD (gastroesophageal reflux disease) Morbid obesity Anterior cervical adenopathy Family history of thyroid disorder Adenomyomatosis of gallbladder Surgical History S/P laparoscopic sleeve gastrectomy Hx of tonsillectomy H/O knee surgery Family History Sister Substance use disorder Mother Hypertension Thyroid disease Father Diabetes Lung cancer Brother No problems noted. Brother No problems noted. Son Asthma Social History Household Members: Spouse and Children Housing: House Are you a primary medicare coordinator to a significant other at home: No Do you presently have visiting nurse or other home services: No Alcohol intake: current Alcohol intake frequency: does not drink Patient Tobacco Use Status: Former Tobacco user Tobacco use type: Cigarette e-Cigarette/Vaping Use: Never Used Second Hand Smoke Exposure: No service: No Current occupational status: employed Cognitive needs: No Hearing needs: No Vision needs: No Review of Systems Const All systems reviewed & are unremarkable except as noted in HPI and below Telehealth Telehealth Telehealth Platform: Telephone Location of provider rendering services: practice address Location of patient: address on file Patient Identification confirmed using: Name, : Yes Telehealth method: voice only Patient verbally consented to treatment: Yes Patient verbally consented to billing insurance company: Yes Patient informed of any privacy concerns related to visit: Yes Minutes spent on Phone/Video with Pt.: 18 Assessment & Plan Assessment & Plan (1) S/P laparoscopic sleeve gastrectomy: Code(s): Z98.84 - Bariatric surgery status Category: Surgical Plan: Patient is doing well. She does wish to change her meal plans slightly to incorporate 2 meals, we will adjust accordingly: Fair life ready to drink shake, 30 g, half, expanded with 6 oz of unsweetened almond milk in the morning Meal x2 with 7 forks of protein and 7 forks of vegetables May have fresh fruit including apple or pear or orange or kiwi or half cup of fresh berries. Encouraged to return to the gym after stretching daily for the next week. Encouraged to get labs done We will arrange for follow-up in 3 months with the understanding she will call sooner with any questions or concerns. Encouraged to text weight weekly and with any questions. Orders: Orders Insulin Today K74.00 - Hepatic fibrosis, unspecified, Z98.84 - Bariatric surgery status Hemoglobin A1c Today K74.00 - Hepatic fibrosis, unspecified, Z98.84 - Bariatric surgery status IRON PROFILE Today K74.00 - Hepatic fibrosis, unspecified, Z98.84 - Bariatric surgery status Zinc Today K74.00 - Hepatic fibrosis, unspecified, Z98.84 - Bariatric surgery status C Reactive Protein Today K74.00 - Hepatic fibrosis, unspecified, Z98.84 - Bariatric surgery status TSH reflex Free T4 Today K74.00 - Hepatic fibrosis, unspecified, Z98.84 - Bariatric surgery status Ferritin Today K74.00 - Hepatic fibrosis, unspecified, Z98.84 - Bariatric surgery status Basic Metabolic Panel Today K74.00 - Hepatic fibrosis, unspecified, Z98.84 - Bariatric surgery status Complete Blood Count Auto Diff Today K74.00 - Hepatic fibrosis, unspecified, Z98.84 - Bariatric surgery status Lipid Panel Today K74.00 - Hepatic fibrosis, unspecified, Z98.84 - Bariatric surgery status Vitamin B12 and Folate Today K74.00 - Hepatic fibrosis, unspecified, Z98.84 - Bariatric surgery status Vitamin B1 Today K74.00 - Hepatic fibrosis, unspecified, Z98.84 - Bariatric surgery status Vitamin A Today K74.00 - Hepatic fibrosis, unspecified, Z98.84 - Bariatric surgery status Vitamin D 25-OH Total Today K74.00 - Hepatic fibrosis, unspecified, Z98.84 - Bariatric surgery status
[2024-07-13 09:00] VITALS: BMI 24.2
== END 2024-07-13 09:24 | disposition home or self-care (01) ==
LOC: HO.HBS 09:12
PROVIDERS: PCP Internal Medicine; Visit Provider Physician Assistant Surgical
DX: K74.00 Hepatic fibrosis, unspecified (principal); Z98.84 Bariatric surgery status
CPT/HCPCS: 98967

== ENCOUNTER → 2024-07-13 09:00 | Outpatient (BNVA) | payer OTHER, SELFPAY | PROVIDERS: PCP Internal Medicine; Visit Provider Physician Assistant Surgical | DX: Z98.84 Bariatric surgery status (principal); K74.00 Hepatic fibrosis, unspecified ==

== ENCOUNTER 2024-11-17 06:11 | Outpatient (REF) | payer OTHER, SELFPAY ==
--- OUTSIDE RECORDS SUMMARY | 2024-11-17 06:13 | XMS_ITS | Clinical Summary ---
Author Organization [facility] ity Address [address] [place] [address] Care Team Providers Care Simplex Operator Name Role Phone Unavailable Primary Care Provider Unavailabl e Social History Tobacco Use Types Packs/Day Years Used Date Smoking Tobacco: Never Assessed Comments Unknown Sex and Gender Information Value Date Recorded Sex Assigned at Not on file Legal Sex Female 9:48 PM EST Gender Identity Not on file Sexual Orientation Not on file Plan of Treatment Health Maintenance Due Date Last Done Comments Breast Cancer Screening 1975 DTaP,Tdap,and Td Vaccines (1 - Tdap) 1994 Hepatitis B Vaccines (1 of 3 - 19+ 3-dose series) 1994 Cervical Cancer Screening: P ap Smear 1996 COVID-19 Vaccine (2023-2 5 season) 2024 Influenza Vaccine (#1) 2024 HIB Vaccines Aged Out No longer eligi ble based on patient's age to complete this topic HPV Vaccines Aged Out No longer eligi ble based on patient's age to complete this topic Hepatitis A Vaccines Aged Out No long er eligible based on patient's age to complete this topic IPV Vaccines Aged Out No longer eligi ble based on patient's age to complete this topic MMR Vaccines Aged Out No longer eligi ble based on patient's age to complete this topic Meningococcal ACWY Vaccine Aged Out N o longer eligible based on patient's age to complete this topic Meningococcal B Vacine Aged Out No lo nger eligible based on patient's age to complete this topic Pneumococcal Vaccine: Pediat rics (0 to 5 Years) and At-Risk Patients (6 to 64 Years) Aged Out No longer eligible b ased on patient's age to complete this topic RSV Immunization Patients Un valeria 20 months Aged Out No longer eligible b ased on patient's age to complete this topic Varicella Vaccines Aged Out No longer eligible based on patient's age to complete this topic
--- OUTSIDE RECORDS SUMMARY | 2024-11-17 06:13 | XMS_ITS | Clinical Summary ---
Author Organization [employer] Address [address] [place] [address] Care Team Providers Care Signal Timer Name Role Phone Unavailable Primary Care Provider Unavailabl e Immunizations Name Administration Dates Next Due Influenza injectable quadrivalent preservative f ree 06/15/2023 Social History Tobacco Use Types Packs/Day Years Used Date Smoking Tobacco: Never Assessed Comments Unknown Sex and Gender Information Value Date Recorded Sex Assigned at Female 06/15/2023 4:33 PM EDT Legal Sex Female 4:30 PM EDT Gender Identity Female 06/15/2023 4:33 PM EDT Sexual Orientation Straight 06/15/2023 4: 33 PM EDT Plan of Treatment Health Maintenance Due Date Last Done Comments CT Colonography 1975 Colonoscopy 1975 Colorectal Cancer Screening 1975 Depression Screening 1975 FIT DNA/Cologuard 1975 FIT 1975 FOBT 1975 HIV Screening 1975 SDOH Screening 1975 Sigmoidoscopy 1975 Alcohol/Substance Use Screening 1987 Tobacco Screening 1987 Family Planning (PISQ) 1990 Hepatitis C Screening 1993 DTaP/Tdap/Td Vaccines (1 - Tdap) 1994 Hepatitis B Vaccines (1 of 3 - 19+ 3-dose series) 1994 Pap Smear 1996 Cervical Cancer Screening 2005 HPV/Cotest 2005 Mammogram 2015 COVID-19 Vaccine ( - 2023-2 5 season) 2024 Influenza Vaccine (#1) 2024 06/15/2023 Zoster Vaccines (1 of 2) 2025 RSV Patients and Pa tients Aged 60 years or older (1 - 1-dose 75+ series) 2050 HIB Vaccines Aged Out No longer eligi [...] patient's age to complete this topic Meningococcal Vaccine Aged Out No daniel reji eligible based on patient's age to complete this topic Pneumococcal Vaccine: Pediat rics (0 to 5 Years) and At-Risk Patients (6 to 49) Years) Aged Out No longer elig ible based on patient's age to complete this topic RSV under 20 months Aged Out No longe r eligible based on patient's age to complete this topic Rotavirus Vaccines Aged Out No longer eligible based on patient's age to complete this topic Insurance [employer]
[2024-11-17 06:34] LABS: MANUAL DIFF FLAG NO
[2024-11-17 07:44] LABS: Basophils Percent Auto 0.4 % (0-2); Eosinophils Absolute Auto 0.1 X10*3/uL (0.0-0.4); Eosinophils Percent Auto 1.6 % (0-4); Hematocrit 40.1 % (37.0-47.0); Hemoglobin 13.3 g/dl (12.0-16.0); Imm Gran Abs Auto 0.01 X10*3/uL (0.00-0.03); Imm Gran Pct Auto 0.2 % (0.0-0.4); Lymphocytes Absolute Auto 1.8 X10*3/uL (1.2-4.9); Lymphocytes Percent Auto 40.4 % (20-40); Mean Corpuscular HGB Conc 33.2 g/dl (31.0-35.0); Mean Corpuscular Hemoglobin 29.6 pg (27.0-33.0); Mean Corpuscular Volume 89.3 fL (80.0-98.0); Mean Platelet Volume 9.8 fL (9.4-12.3); Monocytes Absolute Auto 0.3 X10*3/uL (0.1-1.2); Monocytes Percent Auto 7.6 % (2-11); Neutrophils Absolute Auto 2.2 x10*3/uL (2.0-8.3); Neutrophils Percent Auto 49.8 % (45-73); Platelet Count 219 X10*3/uL (160-400); Red Blood Count 4.49 X10*6/uL (4.20-5.50); Red Cell Distribution Width 12.3 % (11.0-16.0); White Blood Count 4.5 X10*3/uL (4.8-10.8)
[2024-11-17 07:55] LABS: Estimated Average Glucose 105 mg/dL; Hemoglobin A1C 114.6599 umol/L; Hemoglobin A1c % 5.3 % (<6.0); Total Hemoglobin (HGBA1C) 3367.1081 umol/L
[2024-11-17 08:25] LABS: Anion Gap 11 (12-20); Blood Urea Nitrogen 16 mg/dL (9-16); C Reactive Protein 0.18 mg/dL (< or = 0.50); Calcium 9.6 mg/dL (8.4-10.2); Carbon Dioxide 28 mmol/L (22-29); Chloride 107 mmol/L (96-108); Cholesterol 219 mg/dL (<200); Estimated Glomerular Filt Rate > 60; Glucose Random 76 mg/dL (60-115); HDL Cholesterol 68 mg/dL (>40); Iron 134 mcg/dL (30-160); LDL Cholesterol Calculated 130 mg/dL (<100); Percent Iron Saturation 47 % (15-50); Potassium 3.7 mmol/L (3.3-5.1); Sodium 142 mmol/L (135-145); Total Iron Binding Capacity 285 mcg/dL (228-428); Triglycerides 108 mg/dL (<150); Unsaturated Iron Binding 151 ug/dL
[2024-11-17 08:44] LABS: Ferritin 301 ng/mL (10-250); TSH reflex Free T4 1.84 uIU/mL (0.32-4.0); Vitamin D 25-OH Total 56.2 ng/mL (>30)
[2024-11-17 08:52] LABS: Folate 14.4 ng/mL (> or = 4.0); Vitamin B12 936 pg/mL (200-900)
[2024-11-17 08:57] LABS: Insulin 3 uU/mL (2-29)
[2024-11-21 03:18] LABS: Vitamin A 60 mcg/dL (38-98)
[2024-11-21 12:08] LABS: Zinc 65 mcg/dL (60-130)
[2024-11-22 15:24] LABS: Vitamin B1 29 nmol/L (8-30)
== END 2024-11-17 06:12 | disposition home or self-care (01) ==
LOC: HO.LAB 06:11
PROVIDERS: PCP Internal Medicine; Visit Provider Physician Assistant Surgical
DX: K74.00 Hepatic fibrosis, unspecified (principal); Z98.84 Bariatric surgery status; Z13.1 Encounter for screening for diabetes mellitus; Z13.6 Encounter for screening for cardiovascular disorders
CPT/HCPCS: 36415; 80048; 80061; 82306; 82607; 82728; 82746; 83036; 83525; 83540; 84425; 84443; 84590; 84630; 85025; 86140

== ENCOUNTER 2024-11-24 08:00 | Outpatient (AMB) | payer OTHER, SELFPAY ==
--- NOTE | 2024-11-24 07:55 | MHC.OFFVISWM ---
VS Expanded 11/24/24 07:56 Height 5 ft 8 in Weight 162 lb 4 oz BMI 24.7 Body Fat % 29.2 Fat Free Mass 115 Visceral Fat Rating 7 Body Water % 48.6 Muscle Mass/Score 108.2 Basal Metabolic Rate/Score 1,482 Intake Visit Reasons: (TV) PO LSG 06/24/23 Allergies latex [LATEX] Allergy (Unknown, Verified 02/14/24 09:19) HIVES Medication List - Last Reconciled 11/24/24 by ECHO Torres [bariatric fusion MVI PO DAILY] HPI Comments Details: This?a?49?yo female who is s/p LSG without hiatal hernia repair on?06/24/23. Presents for 1 year 5 month post op visit. Weight today is 162.4 pounds, with a BMI of 24.7. There has been a 101.4 pound weight loss,(initial weight 263.8 pounds) since starting the program on 03/12/23 reflecting a 38.4% total body weight loss and a weight loss of 76.9 pounds since surgery (operative weight 239.3 pounds) reflecting a 32.1% TBWL since surgery. No complaints of nausea, emesis, abdominal pain or reflux. Reports infrequent but normal bowel movements every 1-2 days and uses stool softeners regularly. Overall, the patient states that she is doing well. She states that she is doing ok and following the meal plans. She does have excess skin of the arms and inner thighs. She does not have rash, pain. She does need to wear long sleeves due to the look of the extra skin. Taking bariatric fusion mvi Present meal plan includes: Fair life ready to drink shake, 30 g, half, expanded with 6 oz of unsweetened almond milk in the morning Meal x2 with 7 forks of protein and 7 forks of vegetables drinking 60 oz gatorade zero Exercise routine includes: no gym in , 2-3 days per week, treadmill, 25-45 min, speed 3.5 incline 15, 350-400 timothy. maxi climber at home Any post op complications: none CRISTEL: never DM: never HTN: never Hyperlipidemia: never GERD:?0-5 scale ??0 = no symptoms ??1 = symptoms noticeable but not bothersome 2 =symptoms bothersome but not daily ? 3 = symptoms bothersome and daily 4 = symptoms affect daily activities 5 = symptoms are incapacitating, unable to do daily activities ? How bad is the heartburn: 0 ? Heartburn while lying down: 0 ? Heartburn when standing up: 0 ? Heartburn after meals: 0 ? Does heartburn change your diet: 0 ? Does heartburn wake you up from sleep: 0 ? Do you have difficulty swallowin ? Do you have pain with swallowin ? If you take medicine for your reflux, does this affect your daily life: 0 Satisfaction with present condition - satisfied or not satisfied: satisfied [facility] Medical History BMI 37.0-37.9, adult DJD (degenerative joint disease) GERD (gastroesophageal reflux disease) Morbid obesity Anterior cervical adenopathy Family history of thyroid disorder Adenomyomatosis of gallbladder Surgical History S/P laparoscopic sleeve gastrectomy Hx of tonsillectomy H/O knee surgery Family History Sister Substance use disorder Mother Hypertension Thyroid disease Father Diabetes Lung cancer Brother No problems noted. Brother No problems noted. Son Asthma Social History Household Members: Spouse and Children Housing: House Are you a primary intensive care nurse to a significant other at home: No Do you presently have visiting nurse or other home services: No Alcohol intake: current Alcohol intake frequency: does not drink Patient Tobacco Use Status: Former Tobacco user Tobacco use type: Cigarette e-Cigarette/Vaping Use: Never Used Second Hand Smoke Exposure: No service: No Current occupational status: employed Cognitive needs: No Hearing needs: No Vision needs: No Assessment & Plan Assessment & Plan (1) S/P laparoscopic sleeve gastrectomy: Code(s): Z98.84 - Bariatric surgery status Category: Surgical Plan: Overall, patient is doing fairly well. She has not exercised in months however she has maintained her weight. She has started to eat more than she was supposed to as well as drinking V-8 juice. We discussed all of these issues. Reinforced the meal plan. She will return to the gym. We will have her return to the office in approximately 4-5 weeks for her 18 month postop visit. Labs were done just recently showing a slight increase in cholesterol. She will return to the gym and we will follow up accordingly. (2) Excess skin: Code(s): L98.7 - Excessive and redundant skin and subcutaneous tissue Category: Medical Plan: She does report excess skin of her arms and legs. She denies any pain or rashes however she has not gone to the gym lately. She will return to the gym and let me know if the excess skin is causing rashes or interfering with her functional activities.
[2024-11-24 07:56] VITALS: BMI 24.7
--- OUTSIDE RECORDS SUMMARY | 2024-11-24 08:20 | XMS_ITS | Clinical Summary ---
Author Organization [facility] ity Address [address] [place] [address] Care Team Providers Care Testing Engineer Name Role Phone Unavailable Primary Care Provider [...]
--- OUTSIDE RECORDS SUMMARY | 2024-11-24 08:20 | XMS_ITS | Clinical Summary ---
Author Organization [employer] Address [address] [facility] [address] [facility] [address] [place] [address] Care Team Providers Care Financial Director Name Role Phone Unavailable Primary Care Provider [...] patient's age to complete this topic Insurance [employer]
== END 2024-11-24 08:20 | disposition home or self-care (01) ==
LOC: HO.HBS 08:09
PROVIDERS: PCP Internal Medicine; Visit Provider Physician Assistant Surgical
DX: L98.7 Excessive and redundant skin and subcutaneous tissue (principal); Z90.3 Acquired absence of stomach [part of]; Z98.84 Bariatric surgery status
CPT/HCPCS: 99213

== ENCOUNTER → 2024-11-24 08:00 | Outpatient (BNVA) | payer OTHER, SELFPAY | PROVIDERS: PCP Internal Medicine; Visit Provider Physician Assistant Surgical | DX: Z98.84 Bariatric surgery status (principal); K74.00 Hepatic fibrosis, unspecified ==

== ENCOUNTER 2024-12-28 08:38 | Outpatient (AMB) | payer OTHER, SELFPAY ==
--- NOTE | 2024-12-28 08:43 | MHC.OFFVIS ---
Intake Visit Reasons: OV PO LSG 06/24/23 Allergies latex [LATEX] Allergy (Unknown, Verified 12/28/24 08:44) HIVES [facility] Medical History BMI 37.0-37.9, adult DJD (degenerative joint disease) GERD (gastroesophageal reflux disease) Morbid obesity Anterior cervical adenopathy Family history of thyroid disorder Adenomyomatosis of gallbladder Surgical History S/P laparoscopic sleeve gastrectomy Hx of tonsillectomy H/O knee surgery Family History Sister Substance use disorder Mother Hypertension Thyroid disease Father Diabetes Lung cancer Brother No problems noted. Brother No problems noted. Son Asthma Social History Household Members: Spouse and Children Housing: House Are you a primary child care coordinator to a significant other at home: No Do you presently have visiting nurse or other home services: No Alcohol intake: current Alcohol intake frequency: does not drink Patient Tobacco Use Status: Former Tobacco user Tobacco use type: Cigarette e-Cigarette/Vaping Use: Never Used Second Hand Smoke Exposure: No service: No Current occupational status: employed Cognitive needs: No Hearing needs: No Vision needs: No Coding
[2024-12-28 08:45] VITALS: BP 129/67; PULSE 69; O2SAT 98; BMI 23.8
--- NOTE | 2024-12-28 08:45 | MHC.OFFVISWM ---
VS Expanded 12/28/24 08:45 12/28/24 08:45 BP 129/67 Blood Pressure Location Lt brachial Blood Pressure Position Sitting Pulse 69 Pulse Source Pulse Oximeter Pulse Oximetry 98 Height 5 ft 8 in 5 ft 8 in Weight 156 lb 12.8 oz BMI 23.8 Body Fat % 34.5 Body Fat Mass 54.0 Fat Free Mass 102.8 Visceral Fat Rating 6.0 Body Water % 46.7 Body Water Mass 73.2 Muscle Mass/Score 97.4 Basal Metabolic Rate/Score 1,399 Intake Visit Reasons: OV PO LSG 06/24/23 Allergies latex [LATEX] Allergy (Unknown, Verified 12/28/24 08:44) HIVES HPI Comments Details: This?a?49?yo female who is s/p LSG without hiatal hernia repair on?06/24/23. Presents for 1 year 6 month post op visit. Weight today is 156.8 pounds, with a BMI of 23.8. There has been a 107 pound weight loss,(initial weight 263.8 pounds) since starting the program on 03/12/23 reflecting a 40.5% total body weight loss and a weight loss of 82.5 pounds since surgery (operative weight 239.3 pounds) reflecting a 34.4% TBWL since surgery. No complaints of nausea, emesis, abdominal pain or reflux. Reports infrequent but normal bowel movements every 1-2 days and uses stool softeners regularly. Overall, the patient states that she is doing well. She states that she is doing well and has returned tp the gym. She is also walking much more and following the meal plans. She does have excess skin of the arms, abdomen and inner thighs. She does not have rash, pain. She does need to wear long sleeves due to the look of the extra skin. Taking bariatric fusion mvi Present meal plan includes: Fair life ready to drink shake, 30 g, half, expanded with 6 oz of unsweetened almond milk in the morning Meal x 2 with 7 forks of protein and 7 forks of vegetables drinking 60 oz gatorade zero Exercise routine includes: PF, 2-3 days per week, treadmill, 60-70 min, speed 3.5 incline 15, 450 timothy. [facility] Medical History BMI 37.0-37.9, adult DJD (degenerative joint disease) GERD (gastroesophageal reflux disease) Morbid obesity Anterior cervical adenopathy Family history of thyroid disorder Adenomyomatosis of gallbladder Surgical History S/P laparoscopic sleeve gastrectomy Hx of tonsillectomy H/O knee surgery Family History Sister Substance use disorder Mother Hypertension Thyroid disease Father Diabetes Lung cancer Brother No problems noted. Brother No problems noted. Son Asthma Social History Household Members: Spouse and Children Housing: House Are you a primary healthcare sales representative to a significant other at home: No Do you presently have visiting nurse or other home services: No Alcohol intake: current Alcohol intake frequency: does not drink Patient Tobacco Use Status: Former Tobacco user Tobacco use type: Cigarette e-Cigarette/Vaping Use: Never Used Second Hand Smoke Exposure: No service: No Current occupational status: employed Cognitive needs: No Hearing needs: No Vision needs: No Physical Exam Vital Signs: Last Vital Signs Pulse 69 12/28/24 08:45 BP 129/67 12/28/24 08:45 Pulse Ox 98 12/28/24 08:45 BMI result Body Mass Index 23.8 Const General: healthy appearing and no acute distress Resp Effort & Inspection: normal respiratory effort Auscultation: clear to auscultation bilaterally Cardio Rate: regular rate Rhythm: regular rhythm GI Auscultation: normal bowel sounds Extrem General: Yes normal to inspection Assessment & Plan Assessment & Plan (1) S/P laparoscopic sleeve gastrectomy: Code(s): Z98.84 - Bariatric surgery status Category: Surgical Plan: Patient is doing very well. She has maintained a stable and healthy weight. She has returned to the gym. She will continue with her current meal plan and exercise plan. We will have her return to the office in a proximally 3 months, sooner should there be any questions or concerns. (2) Excess skin: Code(s): L98.7 - Excessive and redundant skin and subcutaneous tissue Category: Medical Plan: Given the greater than 100 lb weight loss, she has developed excess skin of the arms, abdomen and thighs. She is concerned about rash starting with the warmer weather. She will alert us to any changes to her skin.
--- OUTSIDE RECORDS SUMMARY | 2024-12-28 08:48 | XMS_ITS | Clinical Summary ---
Author Organization [facility] ity Address [address] [place] [address] Care Team Providers Care Treasury Assistant Name Role Phone Unavailable Primary Care Provider [...]
--- OUTSIDE RECORDS SUMMARY | 2024-12-28 08:48 | XMS_ITS | Clinical Summary ---
Author Organization [employer] Address [address] [facility] [address] [facility] [address] [place] [address] Care Team Providers Care Eligibility Analyst Name Role Phone Unavailable Primary Care Provider [...] patient's age to complete this topic Insurance [employer] [address]
== END 2024-12-28 09:09 | disposition home or self-care (01) ==
LOC: HO.HBS 08:39
PROVIDERS: PCP Internal Medicine; Visit Provider Physician Assistant Surgical
DX: L98.7 Excessive and redundant skin and subcutaneous tissue (principal); Z98.84 Bariatric surgery status
CPT/HCPCS: 99213

== ENCOUNTER → 2024-12-28 08:38 | Outpatient (BNVA) | payer OTHER, SELFPAY | PROVIDERS: PCP Internal Medicine; Visit Provider Physician Assistant Surgical ==

== ENCOUNTER 2025-04-02 08:30 | Outpatient (AMB) | payer OTHER, SELFPAY ==
[2025-04-02 07:55] VITALS: BMI 24.2
--- NOTE | 2025-04-02 07:55 | A.OFFVIS_ITS ---
VS Expanded 04/02/25 07:55 Height 5 ft 8 in Weight 159 lb BMI 24.2 Body Fat % 28.4 Fat Free Mass 113.8 Visceral Fat Rating 7 Body Water % 49.1 Muscle Mass/Score 107 Basal Metabolic Rate/Score 1,485 Intake Visit Reasons: TV PO LSG 06/24/23 Crystal Grower Required: No Allergies latex (LATEX) Allergy (Unknown, Verified 12/28/24 08:44) HIVES Medication List - Last Reconciled 04/02/25 by ECHO Torres [bariatric fusion MVI PO DAILY] clotrimazole 1% (Antifungal (clotrimazole)) 1 appl topical BID docusate sodium (Colace) 100 mg PO DAILY HPI Comments Details: This?a?49?yo female who is s/p LSG without hiatal hernia repair on?06/24/23. Presents for 1 year 10 month post op visit. Weight today is 159 pounds, with a BMI of 23.8. There has been a 104.8 pound weight loss,(initial weight 263.8 pounds) since starting the program on 03/12/23 reflecting a 39.7% total body weight loss and a weight loss of 80.3 pounds since surgery (operative weight 239.3 pounds) reflecting a 33.5% TBWL since surgery. No complaints of nausea, emesis, abdominal pain or reflux. Reports infrequent but normal bowel movements every 1-2 days and uses stool softeners. Overall, the patient states that she is doing well. She states that she is doing well and has returned tp the gym. She is also walking much more and following the meal plans. She does have excess skin of the arms, abdomen and inner thighs. She does have rash, pain, itching to the lateral aspects of the abdominal folds improved with topical creams. She has had 3-4 rash exacerbati ons over the last month. She does need to wear long sleeves due to the look of the extra skin. She has had some difficulty with constipation although takes Colace intermittently. She will not take this more regularly. Taking bariatric fusion mvi Present meal plan includes: Fair life ready to drink shake, 30 g, half, expanded with 6 oz of unsweetened almond milk in the morning Meal x 2 with 7 forks of protein and 7 forks of vegetables drinking 60 oz gatorade zero Exercise routine includes: PF, 2-3 days per week, treadmill, 60-70 min, speed 3.5 incline 15, 450 timothy. [facility] Medical History BMI 37.0-37.9, adult DJD (degenerative joint disease) GERD (gastroesophageal reflux disease) Morbid obesity Anterior cervical adenopathy Family history of thyroid disorder Adenomyomatosis of gallbladder Surgical History S/P laparoscopic sleeve gastrectomy Hx of tonsillectomy H/O knee surgery Family History Sister Substance use disorder Mother Hypertension Thyroid disease Father Diabetes Lung cancer Brother No problems noted. Brother No problems noted. Son Asthma Social History Household Members: Spouse and Children Housing: House Are you a primary aged or disabled care worker to a significant other at home: No Do you presently have visiting nurse or other home services: No Alcohol intake: current Alcohol intake frequency: does not drink Patient Tobacco Use Status: Former Tobacco user Tobacco use type: Cigarette e-Cigarette/Vaping Use: Never Used Second Hand Smoke Exposure: No service: No Current occupational status: employed Cognitive needs: No Hearing needs: No Vision needs: No Telehealth Telehealth Telehealth Platform: Telephone Location of provider rendering services: practice address Location of patient: address on file Patient Identification confirmed using: Name, : Yes Telehealth method: voice only Patient verbally consented to treatment: Yes Patient verbally consented to billing insurance company: Yes Patient informed of any privacy concerns related to visit: Yes Minutes spent on Phone/Video with Pt.: 15 Assessment & Plan Assessment & Plan (1) S/P laparoscopic sleeve gastrectomy: Code(s): Z98.84 - Bariatric surgery status Category: Surgical Plan: Overall, she is doing well. She has maintained a healthy weight. She is maintaining stability with this. She has had less time at the gym and is committed to improving this. She is following her meal plan closely. We will have her follow-up in the office at the end of May for her 2 year follow- up. Check yearly labs at that time. Encouraged to continue to communicate with any questions or concerns. (2) Excess skin: Code(s): L98.7 - Excessive and redundant skin and subcutaneous tissue Category: Medical Plan: Patient has had a greater than 100 lb weight loss. She has maintained a stable and healthy weight. She has developed increasing rashes over the last 6 weeks with increasing temperature and summer months. This has been effectively treated with clotrimazole cream, however this is recurrent. She will continue to follow recommendations closely including good hygiene, keeping the area dry as much as she can. Applying cream as necessary. She will alert us to any worsening complications. She likely is going to need skin removal surgery of her abdomen, arms and legs. We will see her back in the office for her 2 year follow-up at the end of May. She was encouraged to call the office sooner should she have any worsening symptoms
--- OUTSIDE RECORDS SUMMARY | 2025-04-02 08:55 | XMS_ITS | Clinical Summary ---
Author Organization [facility] ity Address [address] [place] [address] Care Team Providers Care Director Of Radio Services Name Role Phone Unavailable Primary Care Provider [...] (2023-2 5 season) 2024 Influenza Vaccine (#1) 2025 HIB Vaccines Aged Out No longer eligi [...] age to complete this topic Meningococcal B Vaccine Aged Out No l onger eligible based on patient's age to complete [...]
== END 2025-04-02 08:56 | disposition home or self-care (01) ==
LOC: HO.HBS 08:43
PROVIDERS: PCP Internal Medicine; Visit Provider Physician Assistant Surgical
DX: L98.7 Excessive and redundant skin and subcutaneous tissue (principal); Z98.84 Bariatric surgery status; Z90.3 Acquired absence of stomach [part of]
CPT/HCPCS: 98967

== ENCOUNTER → 2025-04-02 08:30 | Outpatient (BNVA) | payer OTHER, SELFPAY | PROVIDERS: PCP Internal Medicine; Visit Provider Physician Assistant Surgical | DX: E66.01 Morbid (severe) obesity due to excess calories (principal); L98.7 Excessive and redundant skin and subcutaneous tissue; R21 Rash and other nonspecific skin eruption; Z68.24 Body mass index [BMI] 24.0-24.9, adult; Z90.3 Acquired absence of stomach [part of]; Z98.84 Bariatric surgery status | CPT/HCPCS: 98967 ==

== ENCOUNTER 2025-09-11 13:15 | Outpatient (AMB) | payer OTHER, SELFPAY ==
--- NOTE | 2025-09-11 13:22 | MHC.PC.OV ---
Vital Signs 09/11/25 13:23 Height 5 ft 8 in Weight 173 lb BMI 26.3 BP 92/62 Blood Pressure Location Rt brachial Position Sitting Respiration 16 Pulse 73 Pulse Source Pulse Oximeter Temp 98.5 F Temp Source Oral Pulse Oximetry (%) 98 Oxygen Delivery Method Room Air Intake Visit Reasons: EP - Annual CPX Intake Note: Pt is here today for her PE: Fashion Model Required: No Allergies latex (LATEX) Allergy (Unknown, Verified 09/11/25 13:38) HIVES Medication List - Last Reconciled 09/11/25 by Radha Bills MD multivitamin 1 tab PO DAILY Tobacco use date assessed: 09/11/25 Dental Screening Dental Screen Date: 09/11/25 Did you have a dental visit in the last 12 months?: Yes Did you have a dental problem in the last 6 months where you did not have access to dental care?: No Was dental information given to patient?: Patient has dentist HPI EP - Annual CPX HPI Details 50-year-old lady with history of morbid obesity s/p laparoscopic sleeve gastrectomy and gastropexy May 2023, presents to the clinic today for her physical exam. She has been feeling well, but admits to starting to gain weight back again, do dietary indiscretions during this holiday season. She is overdue for her cervical cancer screening, breast cancer screening and colon cancer screening. Did have her COVID vaccine and flu vaccine given at the pharmacy. [facility] Medical History DJD (degenerative joint disease) GERD (gastroesophageal reflux disease) Family history of thyroid disorder Adenomyomatosis of gallbladder Surgical History S/P laparoscopic sleeve gastrectomy Hx of tonsillectomy H/O knee surgery Family History Sister Substance use disorder Mother Hypertension Thyroid disease Father Diabetes Lung cancer Brother No problems noted. Brother No problems noted. Son Asthma Social History Household Members: Spouse and Children Housing: House Are you a primary palliative care specialist to a significant other at home: No Do you presently have visiting nurse or other home services: No Alcohol intake: current Alcohol intake frequency: does not drink Patient Tobacco Use Status: Former Tobacco user Tobacco use type: Cigarette e-Cigarette/Vaping Use: Never Used Second Hand Smoke Exposure: No service: No Current occupational status: employed Cognitive needs: No Hearing needs: No Vision needs: Yes Questionnaire PHQ-9 Over the last 2 weeks, how often have you been bothered by any of the following problems? 1. Little interest or pleasure in doing things: not at all 2. Feeling down, depressed, or hopeless: not at all 3. Trouble falling or staying asleep, or sleeping too much: not at all 4. Feeling tired or having little energy: not at all 5. Poor appetite or overeating: not at all 6. Feeling bad about yourself - or that you are a failure or have let yourself or your family down: not at all 7. Trouble concentrating on things, such as reading the newspaper or watching television: not at all 8. Moving or speaking so slowly that other people could have noticed. Or the opposite - being so fidgety or restless that you have been moving around a lot more than usual: not at all 9. Thoughts that you would be better off or of hurting yourself in some way: not at all Total score: 0 Depression Screening Interpretation: Negative Depression Screening Done: Yes 39800 - PHQ-9 Billing: Yes Source: Developed by Drs. Fidel Harris, Brandy Corley, Mando Dang and colleagues, with an educational omayra from [employer]. Thrive Questionnaire Date Thrive assessed: 09/11/25 I am a: Patient What is your living situation today?: I have a steady place to live Within the past 12 months, did the food you bought not last and you didn't have the money to get more?: Never true Within the past 12 months, did you worry whether your food would run out before you got money to buy more?: Never true Do you have trouble paying for medicines?: No Do you have trouble getting transportation to medical appointments?: No Do you have trouble paying your heating and electricity bill?: No Do you have trouble taking care of your child, family member or friend?: No Do you have trouble with day-to-day activities such as bathing, preparing meals, shopping, managing finances, etc.?: No Are you currently unemployed and looking for a job?: No Are you interested in more education?: No Please select the resources that you would like help with: None Currently or been in a relationship where the following occur: No concerns reported THRIVE Score: 0 AUDIT C Alcohol Use Questionnaire (AUDIT-C) 1. How often do you have a drink containing alcohol?: 2-4 times a month 2. How many drinks containing alcohol do you have on a typical day when you are drinking?: 3 or 4 3. How often do you have six or more drinks on one occasion?: Less than monthly Total Score: 4 Score Reviewed/Action Taken: Yes DELLA-7 AMB Questionnaire DELLA-7 Date DELLA - 7 assessed: 09/11/25 Feeling nervous, anxious, or on edge: 0 = Not at all Not being able to stop or control worryin = Not at all Worrying too much about different things: 0 = Not at all Trouble relaxin = Not at all Being so restless that it is hard to sit still: 0 = Not at all Becoming easily annoyed or irritable: 0 = Not at all Feeling afraid as if something awful might happen: 0 = Not at all Total DELLA-7 score (0-4 normal; 5-9 mild; 10-14 moderate; 15-21 severe): 0 Source: Developed by Drs. Fidel Harris, Brandy Corley, Mando Dang and colleagues, with an educational omayra from [employer]. DELLA-7 Assessment Billing DELLA-7 Assessment Tool: DELLA-7 Assessment 28344 Review of Systems Const Denies fatigue, Denies fever(s), Denies headache(s) and Denies weakness Eyes Details: goes to [facility] eye care ENT Denies dizziness, Denies headache(s) and Denies nasal congestion Card Denies chest pain, Denies lightheadedness, Denies palpitations and Denies dyspnea Resp Denies chest congestion, Denies cough, Denies dyspnea and Denies wheezing GI Denies abdominal pain, Denies change in bowel habits and Denies heartburn Denies hematuria, Denies urinary frequency, Denies dysuria and Denies urinary urgency Musc Details: Thickened tendon below right ring finger, not painful, occasional pain and stiffness in fingers of both hands Skin/Breast Denies breast pain, Denies breast mass, Denies lesions and Denies rash Neuro Denies dizziness, Denies headache(s) and Denies weakness Psych Reports no additional complaints Endo Denies fatigue, Denies polydipsia, Denies polyuria and Denies palpitations Damián/Lymph Denies easy bruising Aller/Immun Denies seasonal rhinorrhea and Denies wheezing Physical exam (Primary Care) Vital Signs: Last Vital Signs Temp 98.5 F 09/11/25 13:23 Pulse 73 09/11/25 13:23 Resp 16 09/11/25 13:23 BP 92/62 09/11/25 13:23 Pulse Ox 98 09/11/25 13:23 Oxygen Delivery Method Room Air 09/11/25 13:23 BMI result Body Mass Index 26.3 Tobacco/Smoking Status: Tobacco use Status Tobacco use date assessed 09/11/25 09/11/25 13:26 Patient Tobacco Use Status Former Tobacco user 09/11/25 13:26 Tobacco use type Cigarette 09/11/25 13:26 e-Cigarette/Vaping Use Never Used 09/11/25 13:26 PHQ-9: PHQ-9 Score PHQ-9: Total score 0 09/11/25 13:44 Depression Screening Interpretation: Negative Thrive Assessment: Date of Thrive Assessment Date Thrive assessed 09/11/25 09/11/25 13:26 Currently or been in a relationship where the following occur: No concerns reported Advance Care Planning discussion: Completed/Scanned Date of discussion: 09/11/25 Who was present: Patient Forms completed: Health Care Proxy Time spent: 16-45 minutes Actual minutes spent: 3 Const Other: Alert oriented x3, no acute distress noted ambulatory normal gait Nutritional Appearance: average body habitus Orientation/consciousness: patient oriented x3 [facility] Head: Yes normocephalic Ears: external ears normal General nose exam: Normal external nose present Face and sinus: Yes face symmetric Mouth: Normal oral and palatal mucosa present and moist mucous membranes Eyes General: appearance normal, both eyes and all related structures Neck Neck: Yes full ROM and Yes supple Chest Chest palpation & inspection: normal inspection of the chest Breast/axilla inspection: normal inspection of the breasts Breast/axilla palpation: normal palpation of the breasts Resp Auscultation: clear to auscultation bilaterally Cardio Other: S1-S2 present regular rate and rhythm, no murmur GI Inspection: Yes normal to inspection Palpation (GI): Soft to palpation, nontender, no guarding and no masses Auscultation: normal bowel sounds Other: Patient declined exam today, would like pelvic exam and cervical cancer screening done on next visit General: Yes no CVA tenderness Back/Spine/Pelvis Back: no CVA tenderness and No back tenderness Skin General skin exam: no rashes or lesions noted Neuro General: patient oriented x3, gait normal, tone normal, moves all extremities, no focal motor deficits, CN's II-XI intact bilaterally and normal sensation to monofilament Gait exam (Neuro): Normal gait present Extrem Other: Thickened enlarged tendon on mom of fried hand just below right ring finger General: Yes no joint enlargement, Yes no pedal edema and Yes normal gait Psych Appearance: grossly normal and well kempt Mental Status: mental status grossly normal Speech and movement: Normal speech and movement present Affect: normal affect Results Reviewed Results Reviewed: Name: Unique Clemons Age/Sex: 49/F : 1975 Unit#: [id number] Attend Dr: Dc Pierre Re11/17/24 Status: DEP REF Location: [facility] Disch: SPEC : [id number] LIDYA: 11/17/24 STATUS: COMP REQ : [id number] RECD: 11/17/[address]: Dc Pierre COMP: 11/17/24 ENTERED: 11/17/[address]: Radha Bills MD ORDERED: CBC Auto Diff Test Result Flag Reference WBC 4.5 L 4.8-10.8 X10*3/uL RBC 4.49 4.20-5.50 X10*6/uL HGB 13.3 12.0-16.0 g/dl HCT 40.1 37.0-47.0 % MCV 89.3 80.0-98.0 fL MCH 29.6 27.0-33.0 pg MCHC 33.2 31.0-35.0 g/dl RDW 12.3 11.0-16.0 % PLT 219 160-400 X10*3/uL MPV 9.8 9.4-12.3 fL Neut Pct Auto 49.8 45-73 % ImGran Pct Auto 0.2 0.0-0.4 % Lymp Pct Auto 40.4 H 20-40 % [place] Pct Auto 7.6 2-11 % Eos Pct Auto 1.6 0-4 % Baso Pct Auto 0.4 0-2 % NRBC Pct Auto 0.0 0.0-0.2 /100WBC ANC Neut Abs # 2.2 2.0-8.3 x10*3/uL ImGran Abs Auto 0.01 0.00-0.03 X10*3/uL Lymph Abs Auto 1.8 1.2-4.9 X10*3/uL [place] Abs Auto 0.3 0.1-1.2 X10*3/uL Eos Abs Auto 0.1 0.0-0.4 X10*3/uL Baso Abs Auto 0.0 0.0-0.2 X10*3/uL NRBC Abs Auto 0.000 0.0-0.012 X10*3/uL Name: Unique Clemons Age/Sex: 49/F : 1975 Unit#: [id number] Attend Dr: Dc Pierre Re11/17/24 Status: DEP REF Location: [facility] Disch: SPEC : [id number] LIDYA: 11/17/24 STATUS: COMP REQ : [id number] RECD: 11/17/[address]: Dc Pierre COMP: 11/17/24 ENTERED: 11/17/[address] [facility] [address]: Radha Bills MD ORDERED: BMP, IRON PROF, Ferritin, C Reactive Prot, Lipid Panel, Vitamin D 25-OH, Insulin Test Result Flag Reference Sodium 142 135-145 mmol/L Potassium 3.7 3.3-5.1 mmol/L CL 107 96-108 mmol/L CO2 28 22-29 mmol/L Gap 11 L 12-20 BUN 16 9-16 mg/dL Creat 0.60 0.5-1.4 mg/dL eGFR > 60 Chronic Kidney Disease: Estimated GFR < 60 mL/min/1.73m2 Severe Kidney Disease: Estimated GFR < 15 mL/min/1.73m2 Glucose, Random 76 60-115 mg/dL CA 9.6 8.4-10.2 mg/dL Iron 134 30-160 mcg/dL TIBC 285 228-428 mcg/dL Saturation 47 15-50 % UIBC 151 ug/dL Ferritin 301 H 10-250 ng/mL CRP 0.18 < or = 0.50 mg/dL Triglyceride 108 <150 mg/dL Desirable Triglyceride: less than 150 mg/dL Borderline High Triglyceride 150-199 mg/dL High Triglyceride: 200-499 mg/dL Very High Triglyceride: greater than or equal to 5OO mg/dL Cholesterol 219 H <200 mg/dL Desirable Cholesterol: less than 200 mg/dL Borderline High Cholesterol: 200-239 mg/dL High Cholesterol: greater than 239 mg/dL LDL Calculated 130 H <100 mg/dL Desirable LDL: less than 100 mg/dL Near Optimal/Above Optimal LDL: 110-129 mg/dL Borderline High LDL: 130-159 mg/dL High LDL: 160-189 mg/dL Very High LDL: greater than or equal to 190 mg/dL HDL 68 >40 mg/dL Desirable HDL: greater than 40 mg/dL Note: This HDL assay may give artificially low results in patients with liver disease. Vit D 25-OH Tot 56.2 >30 ng/mL Health Based Reference Values* < 20 ng/mL Deficient 20-30 ng/mL Insufficient > 30 ng/mL Sufficient *Chris DOTY. N Engl J Med. 2007;357:266-280 Care must be taken in interpreting Vitamin D results from different laboratories and methodologies. Published data demonstrated that results from patients undergoing hemodialysis may show a negative bias when tested with various automated 25-OH vitamin D assays when compared to LC-MS/MS. When testing samples from patients whose predominant form of Vitamin D is Vitamin D2, such as patients receiving Vitamin D2 supplementation, results that are subtherapeutic should be confirmed with another method such as LC-MS/MS. TSH 1.84 0.32-4.0 uIU/mL Insulin, total 3 2-29 uU/mL This test was performed using the Barry chemiluminescent method. Values obtained from different assay methods cannot be used interchangeably. This insulin assay shows a possible cross-reactivity with antibodies generated against insulin (immunoreactive insulin and some patients treated with bovine or porcine insulin). Insulin levels may be measured lower in patients with insulin autoimmune syndrome or familial high pro-insulinemia. Coding Level of Care Code Est Pt Prev Care 40-64y(65890) Diagnoses Annual visit for general adult medical examination with abnormal findings Z00.01 Advance directive discussed with patient Z71.89 Additional Codes DELLA-7 Assessment Billing - DELLA-7 Assessment Tool: DELLA-7 Assessment 37018 ([id number]) PHQ-9 - 84404 - PHQ-9 Billing: Yes ([id number]) Vital Signs *Quality* - Advance Care Planning discussion: Completed/Scanned ([id number]) Vital Signs *Quality* - Time spent: 16-45 minutes ([id number]) Assessment & Plan Assessment & Plan (1) Annual visit for general adult medical examination with abnormal findings: Code(s): Z00.01 - Encounter for general adult medical examination with abnormal findings Plan: Patient states that she has upcoming labs to be done ordered by her weight loss clinic. Recommended dental visit every 6 months and regular eye exams, goes to [facility] eye [facility]. Take adequate calcium in diet and vitamin-D 3 at 2000 IU per cap once a day, in addition to weight-bearing exercises to help maintain good muscle tone and weight control. Instructed to do self-breast exam, and recommended to get yearly mammogram, ordered. Patient would like to have her Pap smear pelvic exam done on her next physical. Up-to-date with her flu and COVID vaccine, reminded to get her tetanus diphtheria booster and recommended to get shingles vaccine. Cologuard test ordered for colon cancer screening (2) Advance directive discussed with patient: Code(s): Z71.89 - Other specified counseling Plan: Initiated the conversation about Advanced Directives. Advanced Directives help patients prepare for current and future decisions about their medical treatment and place of care. Discussed with patient that it is a process where a patients current condition and prognosis are reviewed, their wishes for information regarding their illness are elicited, and likely medical dilemmas are presented and options discussed. Healthcare proxy form completed today. The form can be amended as needed, reviewed yearly and make changes as needed Orders: Orders MM tomosynthesis screening BI Today Z12.31 - Encounter for screening mammogram for malignant neoplasm of breast Referrals Cologuard Test Z12.11 - Encounter for screening for malignant neoplasm of colon, Z12.12 - Encounter for screening for malignant neoplasm of rectum
[2025-09-11 13:23] VITALS: BP 92/62; PULSE 73; RESP 16; TEMP 36.9; O2SAT 98; BMI 26.3
--- OUTSIDE RECORDS SUMMARY | 2025-09-11 17:18 | XMS_ITS | Clinical Summary ---
Author Organization [facility] ity Address [address] [place] [address] Care Team Providers Care Tumbler Plater Name Role Phone Unavailable Primary Care Provider [...] Cervical Cancer Screening: P ap Smear 1996 Depression Screening 09/27/2024 COVID-19 Vaccine (1 - 2024-2 6 season) 2025 Influenza Vaccine (#1) 2025 Pneumococcal Vaccine: 50+ Ye ars (1 of 1 - PCV) 2025 Zoster Vaccines (1 of 2) 2025 RSV Immunization Adult Patie nts (1 - 1-dose 75+ series) 2050 HIB [...]
--- OUTSIDE RECORDS SUMMARY | 2025-09-11 17:18 | XMS_ITS | Clinical Summary ---
Author Organization [employer] Address [address] [place] [address] Care Team Providers Care Marble Machine Operator Name Role Phone Unavailable Primary Care Provider Unavailabl e Immunizations Immunization Administration Dates Next Due Influenza injectable quadrivalent [...] Screening 1975 SDOH Screening 1975 Sigmoidoscopy 1975 Disability Screening 1975 Alcohol/Substance Use Screening 1987 Tobacco Screening 1987 Family Planning (PISQ) 1990 Hepatitis C Screening 1993 DTaP/Tdap/Td Vaccines (1 - Tdap) 1994 Hepatitis B Vaccines (1 of 3 - 19+ 3-dose series) 1994 Pap Smear 1996 Cervical Cancer Screening 2005 HPV/Cotest 2005 Mammogram 2015 COVID-19 Vaccine ( - 2024-2 6 season) 2025 Influenza Vaccine (#1) 2025 06/15/2023 Pneumococcal Vaccine: 50+ Ye ars (1 of [...] patient's age to complete this topic Insurance [employer]
== END 2025-09-11 14:03 | disposition home or self-care (01) ==
LOC: HO.HMCC 13:16
PROVIDERS: PCP Internal Medicine; Visit Provider Internal Medicine
DX: Z00.01 Encounter for general adult medical examination with abnormal findings (principal); Z71.89 Other specified counseling; Z00.00 Encounter for general adult medical examination without abnormal findings

== ENCOUNTER → 2025-09-11 13:15 | Outpatient (BNVA) | payer OTHER, SELFPAY | PROVIDERS: PCP Internal Medicine; Visit Provider Internal Medicine | DX: Z00.01 Encounter for general adult medical examination with abnormal findings (principal); Z71.89 Other specified counseling | CPT/HCPCS: 96127 ==